=== PATIENT | male | born 1970 | race African-American/Black ===

== ENCOUNTER 2016-08-26 10:30 | Inpatient (IN) | payer OTHER, MEDICARE ==
[2016-08-26] VITALS (11 sets, daily range): BP systolic 139–188; BP diastolic 76–102; PULSE 92–112; RESP 18–22; TEMP 97.8–99.8; O2SAT 97–100
[~2016-08-26] VITALS: Ht 185.4 cm; Wt 86.2 kg
[~2016-08-26 10:30] MED LIST: AMLO5TAB96 PO; ATOR20TA42 PO; BACT2OIN TOP; CINA30 PO; CLON.1 PO; DIALTAB2 PO; ELIP667T PO; FAMO40 PO; HUMSS SQ; LABE200 PO; LABE200T2 PO; NITR.4 SL; PROT40TA PO; SEVEL800 PO; [UNRECOGNIZED DRUG - CODE] SQ
[2016-08-26] MEDS ORDERED: MORPHINE SULFATE 4 MG/ML INJ IV PUSH ONE ×2 (11:00→16:15)
[2016-08-26] MEDS ORDERED: ONDANSETRON HCL 4 MG/2 ML VIAL IV ONE (11:00)
[2016-08-26] MEDS ORDERED: SODIUM CHLOR 0.9% 1000 ML INJ 1,000 ML IV ONE (11:00)
[2016-08-26] MEDS ORDERED: MONT10TA2 PO (11:11)
[2016-08-26] MEDS ORDERED: ZANT300T PO (11:11)
[2016-08-26] MEDS ORDERED: LIPI20TA PO (11:11)
[2016-08-26] MEDS ORDERED: GLEE100T PO (11:11)
[2016-08-26] MEDS ORDERED: MYCO500 PO (11:11)
[2016-08-26] MEDS ORDERED: TACR1 PO (11:11)
[2016-08-26] MEDS ORDERED: CARA1TAB6 PO (11:11)
[2016-08-26] MEDS ORDERED: CARV6.25 PO (11:11)
[2016-08-26 11:21] LABS: AUTOMATED NEUTROPHIL # 3.6 TH/MM3 (1.8-7.7); BASOPHIL % 0.7 % (0.0-2.0); EOSINOPHIL % 0.1 % (0.0-4.0); HEMATOCRIT 40.4 % (39.0-51.0); HEMO FLAGS AUTO DIFF; LYMPH % 9.6 % (9.0-44.0); LYMPHOCYTE # 0.5 TH/MM3 (1.0-4.8); MEAN CELL VOLUME 83.9 FL (80.0-100.0); MEAN CORPUSCULAR HGB CONC 32.2 % (32.0-36.0); MONO % 18.8 % (0.0-8.0); NEUT % 70.8 % (16.0-70.0); PLATELET COUNT 212 TH/MM3 (150-450); RED BLOOD COUNT 4.82 MIL/MM3 (4.50-5.90); RED CELL DISTRIBUTION WIDTH 13.5 % (11.6-17.2); WHITE BLOOD COUNT 5.1 TH/MM3 (4.0-11.0)
[2016-08-26 11:27] LABS: APTT (PATIENT) 31.5 SEC (24.3-30.1); PROTHROMBIN TIME - PATIENT 10.7 SEC (9.8-11.6)
[2016-08-26 11:32] LABS: ALT (GPT) 18 U/L (12-78); ANION GAP 11 MEQ/L (5-15); AST (GOT) 13 U/L (15-37); BICARBONATE 23.6 MEQ/L (21.0-32.0); BLOOD UREA NITROGEN 35 MG/DL (7-18); CHLORIDE 98 MEQ/L (98-107); GLOMERULAR FILTRATION RATE 35 ML/MIN (>89); MAGNESIUM 2.2 MG/DL (1.5-2.5); POTASSIUM 4.8 MEQ/L (3.5-5.1); SODIUM (NA) 133 MEQ/L (136-145)
[2016-08-26 11:35] LABS: ALKALINE PHOSPHATASE 68 U/L (45-117); CREATINE KINASE 150 U/L (39-308); INDIRECT BILIRUBIN 0.4 MG/DL (0.0-0.8); TOTAL BILIRUBIN ADULT 0.5 MG/DL (0.2-1.0)
[2016-08-26] MEDS ORDERED: PROT40TA PO (11:36)
[2016-08-26] MEDS ORDERED: AMOX500C PO (11:36)
[2016-08-26] MEDS ORDERED: SERT-132 PO (11:36)
[2016-08-26] MEDS ORDERED: NOVOLOGP2 IMPLANPUMP (11:36)
[2016-08-26] MEDS ORDERED: AZIT250T3 PO (11:36)
[2016-08-26 11:48] LABS: CKMB LESS THAN 0.5 NG/ML (0.5-3.6)
--- NOTE | 2016-08-26 12:08 | RADRPT ---
EXAM DATE/TIME: 08/26/2016 11:42 [facility] COMPARISON: CHEST SINGLE AP, February 11, 2014, 19:45. CHEST PA & LAT, September 07, 2012, 14:54. INDICATIONS : Chest Pain. MEDICAL HISTORY : None. SURGICAL HISTORY : None. ENCOUNTER: Initial ACUITY: 1 week PAIN SCORE: 10/10 LOCATION: Bilateral chest FINDINGS: AP and lateral views of the chest demonstrate normal-sized cardiac silhouette. There is a linear wedg e shaped opacity in the anterior aspect of the right middle lobe. This is new from the prior examinat ions. No effusion, consolidation, or pneumothorax is visualized. Bones demonstrate no acute finding. CONCLUSION: Wedge shaped parenchymal opacity in the superior aspect of the right middle lobe. The wedge-shaped ap pearance favors subsegmental atelectasis or parenchymal scar. Consolidation is felt less likely. Hernando Leblanc MD on August 26, 2016 at 12:05 Board Certified Radiologist. This report was verified electronically.
[2016-08-26 12:12] LABS: BANDS 7 % (0-6); NEUTROPHIL # MANUAL DIFF 3.6 TH/MM3 (1.8-7.7); PLATELET ESTIMATE SMEAR NORMAL (NORMAL); PLATELET MORPHOLOGY NORMAL (NORMAL); POLYS (SEG NEUTROPHILS) 63 % (16-70); SCAN/DIFF FINAL DIFF MANUAL; WBC DIFF SAMPLE 100
[2016-08-26 12:20] LABS: BLOOD GAS VENOUS BASE EXCESS -1.8 mmol/L (-2-2); BLOOD GAS VENOUS HCO3 22 mmol/L (22-26); BLOOD GAS VENOUS O2 CONTENT 10.3 Vol % (9.0-17.0); BLOOD GAS VENOUS O2 HGB SAT 54 % (70-76); BLOOD GAS VENOUS PCO2 38 mmHg (44-48); BLOOD GAS VENOUS PO2 29 mmHg (35-40); BLOOD GAS VENOUS pH 7.39 (7.360-7.400); CRITICAL VALUE YES; DRAW SITE CL; OXYGEN DEVICE RA; STAT YES; TEMP CORR TO 98.6
[2016-08-26] MEDS ORDERED: PANTOPRAZOLE INJ 80 MG in SODIUM CHLORIDE 0.9% INJ 35 ML IV ONE (13:30)
[2016-08-26] MEDS ORDERED: ONDANSETRON HCL 4 MG/2 ML VIAL IV PUSH ONE (13:30)
[2016-08-26] MEDS ORDERED: ASPI1TAB69 PO (13:46)
[2016-08-26] MEDS ORDERED: ZOLO50TA PO (13:46)
[2016-08-26] MEDS ORDERED: ZITH250T PO (13:46)
--- NOTE | 2016-08-26 14:15 | RADRPT ---
EXAM DATE/TIME: 08/26/2016 13:32 [facility] COMPARISON: CHEST PA & LAT, August 26, 2016, 11:42. INDICATIONS : Left side chest pain, cough, fever. RADIATION DOSE: 3.58 CTDIvol (mGy) MEDICAL HISTORY : Cardiovascular disease. Diabetes mellitus type 2. Renal failure, chronic. Stroke, leukemia. SURGICAL HISTORY : Penile implant. ENCOUNTER: Initial ACUITY: 3 days PAIN SCALE: 7/10 LOCATION: Left upper chest TECHNIQUE: Volumetric scanning of the chest was performed. Using automated exposure control and adjustment of t he mA and/or kV according to patient size, radiation dose was kept as low as reasonably achievable to obtain optimal diagnostic quality images. FINDINGS: LUNGS: The chest x-ray finding represents a groundglass attenuation as well as a linear opacity in the infer ior aspect of the right upper lobe adjacent to the minor fissure. No effusion or pneumothorax is pres ent.PLEURAE: There is no pleural thickening or pleural effusion. MEDIASTINUM: The heart and great vessels demonstrate no acute abnormality. Mild coronary artery calcification is present. There is trace pericardial fluid. There is no mediastinal or hilar lymphadenopathy is identi fied on this noncontrast exam. AXILLAE: Within normal limits. No lymphadenopathy. MUSCULOSKELETAL: Within normal limits for patient age. MISCELLANEOUS: The visualized upper abdominal organs demonstrate no acute abnormality. There is a small hiatal herni a. CONCLUSION: 1. The chest x-ray finding represents mild groundglass attenuation as well as a linear opacity with a n appearance favoring an airspace process with associated atelectasis. It is located in the inferior aspect of the right upper lobe. Given the history of cough and fever this very likely represents an i nfectious process. Suggest followup imaging to confirm resolution following appropriate therapy. 2. Nonacute findings include mild coronary artery calcification and small hiatal hernia. Hernando Leblanc MD on August 26, 2016 at 14:10 Board Certified Radiologist. This report was verified electronically.
[2016-08-26] MEDS: PANTOPRAZOLE INJ 80 MG in SODIUM CHLORIDE 0.9% INJ 100 ML IV SCH ×2 (14:18→22:52)
[2016-08-26] MEDS ORDERED: AZITHROMYCIN INJ 500 MG in SODIUM CHLOR 0.9% 250 ML INJ 250 ML IV ONE (14:30)
[2016-08-26] MEDS ORDERED: cefTRIAXone INJ 1,000 MG in SODIUM CHLORIDE 0.9% INJ 100 ML IV ONE (14:30)
--- NOTE | 2016-08-26 14:39 | PD ---
HPI Chief Complaint: Fever Time Seen by Provider: 10:50 Travel History International Travel<30 days: No Contact w/Intl Traveler<30days: No Traveled to known affect area: No History of Present Illness HPI Patient is a 45 year old male with history of Leukemia on chemo, as well as renal transplant, who comes in complaining of left sided chest pain, cough, fevers. He has also had nausea and vomiting. He was taking Amoxicillin, prescribed by his doctor, but when he started vomiting his doctor told him to stop. His significant other is concerned about him so she told him to come in. He says he generally does not feel well. PFSH Past Medical History Hx Anticoagulant Therapy: Yes (81mg aspirin.) Arthritis: No Autoimmune Disease: No Blood Disorders: No Heart Rhythm Problems: No Cancer: No Cardiovascular Problems: Yes High Cholesterol: No Chemotherapy: Yes Chest Pain: No Congestive Heart Failure: Yes Cerebrovascular Accident: Yes (X3, SLIGHTLY WEAK ON LEFT SIDE) Diabetes: Yes (IDDM) Patient Takes Glucophage: No Dialysis: Yes (MON-SUN (OFF SAT AND SUN)) Diminished Hearing: No Endocrine: Yes Glaucoma: No Genitourinary: No Hepatitis: No Hiatal Hernia: No Hypertension: Yes Immune Disorder: No Implanted Vascular Access Dvce: Yes ( LEFT AVF) Kidney Stones: No Musculoskeletal: Yes Neurologic: No Psychiatric: No Reproductive: No Respiratory: No Migraines: Yes Myocardial Infarction: No Renal Failure: Yes (LEFT FOREARM AV SHUNT) Seizures: No Thyroid Disease: No Tetanus Vaccination: < 5 Years PNEUMOCCOCAL Vaccine (Year): 2 Past Surgical History Abdominal Surgery: No AICD: No Arteriovenous Shunt: No Cardiac Surgery: No Ear Surgery: No Endocrine Surgery: No Eye Surgery: Yes (CATARACT SURGERY WITH IMPLANTS) Genitourinary Surgery: Yes (PENILE IMPLANT/ left kidney transplant) Gynecologic Surgery: No Insulin Pump: No Joint Replacement: No Oral Surgery: No Pacemaker: No Thoracic Surgery: No Other Surgery: Yes (JACK GREAT TOES REMOVED/ left avf fistula) Social History Alcohol Use: No Tobacco Use: No Substance Use: No Allergies-Medications (Allergen,Severity, Reaction): Coded Allergies: Bethanechol (Verified Allergy, Mild, DIAPHORESIS, 08/26/16) Contrast Media (Verified Allergy, Mild, ITCHING AND COUGHING, 08/26/16) Reported Meds & Prescriptions Reported Meds & Active Scripts Active Reported Zithromax (Azithromycin) 250 Mg Tab 250 Mg PO DAILY Aspirin 81 Mg Tabdr 81 Mg PO DAILY Zoloft (Sertraline HCl) 50 Mg Tab 50 Mg PO DAILY Amoxicillin 500 Mg Cap 500 Mg PO TID 10 Days Azithromycin 250 Mg Tab 250 Mg PO DAILY Protonix (Pantoprazole Sodium) 40 Mg Tab 40 Mg PO DAILY Sertraline (Sertraline HCl) 50 Mg Tab 50 Mg PO DAILY Novolog Inj (Insulin Aspart) 1,000 Unit/10 Ml Vial 0 SQ DIRECTED Sliding Scale as directed. Lipitor (Atorvastatin Calcium) 20 Mg Tab 20 Mg PO HS Singulair (Montelukast Sodium) 10 Mg Tab 10 Mg PO HS Gleevec (Imatinib Mesylate) 100 Mg Tab 100 Mg PO HS Coreg (Carvedilol) 6.25 Mg Tab 6.25 Mg PO BID Cellcept (Mycophenolate Mofetil) 500 Mg Tab 1,000 Mg PO BID Prograf (Tacrolimus) 1 Mg Cap 3 Mg PO BID Zantac (Ranitidine HCl) 300 Mg Tab 300 Mg PO BID Carafate (Sucralfate) 1 Gm Tab 1 Gm PO DAILY On empty stomach Review of Systems Except as stated in HPI: all other systems reviewed are Neg General / Constitutional: Positive: Fever HENT: No: Headaches, Lightheadedness Cardiovascular: Positive: Chest Pain or Discomfort Respiratory: Positive: Cough Gastrointestinal: Positive: Nausea, Vomiting, No: Abdominal Pain Genitourinary: No: Dysuria Musculoskeletal: Positive: Myalgias Skin: No Rash, No Change in Pigmentation Neurologic: Positive: Weakness Physical Exam Narrative GENERAL: Awake and alert, in no acute distress. SKIN: Warm and dry. HEAD: Atraumatic. Normocephalic. EYES: Pupils equal and round. No scleral icterus. ENT: Mucous membranes pink and moist. NECK: Trachea midline. No JVD. CARDIOVASCULAR: Regular rate and rhythm. No murmur appreciated. RESPIRATORY: No accessory muscle use. Clear to auscultation. Breath sounds equal bilaterally. GASTROINTESTINAL: Abdomen soft, non-tender, nondistended. MUSCULOSKELETAL: No obvious deformities. No clubbing. No cyanosis. No edema. NEUROLOGICAL: Awake and alert. No obvious cranial nerve deficits. Motor grossly within normal limits. Normal speech. PSYCHIATRIC: Appropriate mood and affect; insight and judgment normal. Data Data Last Documented VS Vital Signs Date Time Temp Pulse Resp B/P Pulse Ox O2 Delivery O2 Flow Rate FiO2 08/26/16 13:30 92 20 186/102 100 Room Air 08/26/16 10:32 97.8 Orders Electrocardiogram (08/26/16 ) Complete Blood Count With Diff (08/26/16 11:00) Prothrombin Time / Inr (Pt) (08/26/16 11:00) Act Partial Throm Time (Ptt) (08/26/16 11:00) Lactic Acid Sepsis Protocol (08/26/16 11:00) Magnesium (Mg) (08/26/16 11:00) Phosphorus (Po4) (08/26/16 11:00) Lipase (08/26/16 11:00) Ckmb (Isoenzyme) Profile (08/26/16 11:00) Troponin I (08/26/16 11:00) Urinalysis - C+S If Indicated (08/26/16 11:00) Ua Includes Microscopic (08/26/16 11:00) Blood Culture (08/26/16 11:00) Chest, Pa & Lat (08/26/16 11:00) Blood Glucose (08/26/16 11:00) Ecg Monitoring (08/26/16 11:00) Iv Access Insert/Monitor (08/26/16 11:00) Oximetry (08/26/16 11:00) Oxygen Administration (08/26/16 11:00) Ondansetron Inj (Zofran Inj) (08/26/16 11:00) Sodium Chlor 0.9% 1000 Ml Inj (Ns 1000 M (08/26/16 11:00) Blood Gas Venous (Vbg) (08/26/16 11:00) Basic Metabolic Panel (Bmp) (08/26/16 11:00) Hepatic Functional Panel (08/26/16 11:00) Morphine Inj (Morphine Inj) (08/26/16 11:00) CKMB (08/26/16 11:05) CKMB% (08/26/16 11:05) Ct Thorax/ Chest Wo Iv Contras (08/26/16 ) Pantoprazole Inj (Protonix Inj) (08/26/16 13:30) Pantoprazole Inj (Protonix Inj) (08/26/16 13:30) Ondansetron Inj (Zofran Inj) (08/26/16 13:30) Ceftriaxone Inj (Rocephin Inj) (08/26/16 14:30) Azithromycin Inj (Zithromax Inj) (08/26/16 14:30) Labs Laboratory Tests Test 08/26/16 08/26/16 11:05 11:15 White Blood Count 5.1 TH/MM3 Red Blood Count 4.82 MIL/MM3 Hemoglobin 13.0 GM/DL Hematocrit 40.4 % Mean Corpuscular Volume 83.9 FL Mean Corpuscular Hemoglobin 27.0 PG Mean Corpuscular Hemoglobin 32.2 % Concent Red Cell Distribution Width 13.5 % Platelet Count 212 TH/MM3 Mean Platelet Volume 8.6 FL Neutrophils (%) (Auto) 70.8 % Lymphocytes (%) (Auto) 9.6 % Monocytes (%) (Auto) 18.8 % Eosinophils (%) (Auto) 0.1 % Basophils (%) (Auto) 0.7 % Neutrophils # (Auto) 3.6 TH/MM3 Lymphocytes # (Auto) 0.5 TH/MM3 Monocytes # (Auto) 1.0 TH/MM3 Eosinophils # (Auto) 0.0 TH/MM3 Basophils # (Auto) 0.0 TH/MM3 CBC Comment AUTO DIFF Differential Total Cells 100 Counted Neutrophils % (Manual) 63 % Band Neutrophils % 7 % Lymphocytes % 14 % Monocytes % 16 % Neutrophils # (Manual) 3.6 TH/MM3 Differential Comment FINAL DIFF MANUAL Platelet Estimate NORMAL Platelet Morphology Comment NORMAL Red Cell Morphology Comment NORMAL Prothrombin Time 10.7 SEC Prothromb Time International 1.0 RATIO Ratio Activated Partial 31.5 SEC Thromboplast Time Sodium Level 133 MEQ/L Potassium Level 4.8 MEQ/L Chloride Level 98 MEQ/L Carbon Dioxide Level 23.6 MEQ/L Anion Gap 11 MEQ/L Blood Urea Nitrogen 35 MG/DL Creatinine 2.42 MG/DL Estimat Glomerular Filtration 35 ML/MIN Rate Random Glucose 343 MG/DL Lactic Acid Level 1.6 mmol/L Calcium Level 9.3 MG/DL Phosphorus Level 2.6 MG/DL Magnesium Level 2.2 MG/DL Total Bilirubin 0.5 MG/DL Direct Bilirubin 0.1 MG/DL Indirect Bilirubin 0.4 MG/DL Aspartate Amino Transf 13 U/L (AST/SGOT) Alanine Aminotransferase 18 U/L (ALT/SGPT) Alkaline Phosphatase 68 U/L Total Creatine Kinase 150 U/L Creatine Kinase MB LESS THAN 0.5 NG/ML Troponin I LESS THAN 0.02 NG/ML Total Protein 7.7 GM/DL Albumin 3.9 GM/DL Lipase 74 U/L Blood Gas Puncture Site CL Blood Gas Patient Temperature 98.6 Venous Blood pH 7.39 Venous Blood Partial Pressure 38 mmHg CO2 Venous Blood Partial Pressure 29 mmHg O2 Venous Blood HCO3 22 mmol/L Venous Blood Oxygen Saturation 54 % Venous Blood Oxygen Content 10.3 Vol % Venous Blood Base Excess -1.8 mmol/L Oxygen Delivery Device RA MDM Medical Decision Making Medical Screen Exam Complete: Yes Emergency Medical Condition: Yes Medical Record Reviewed: Yes Interpretation(s) ECG shows sinus rhythm at 97, LVH, no ST elevation or depression. Differential Diagnosis Sepsis versus pneumonia versus UTI versus ACS Narrative Course Patient is a 45-year-old male, immunocompromise secondary to renal transplant in leukemia on chemotherapy, who comes in complaining of fever, chest pain, cough, nausea or vomiting. Exam shows no acute abnormalities. IV established, patient connected to front desk monitor. Labs sent. Labs concerning for a creatinine of 2.42. His recent labs showed a creatinine of 1.8 previously. CXR showed wedge shaped opacity. CT chest performed shows ground glass opacity in the RUL, likely infectious. Patient treated with Rocephin and Azithromycin. While he was in the ED, patient had an episode of coffee ground emesis. He has history of gastric ulcers. Given Protonix bolus as well as started on Protonix drip. He was given Zofran as well as Morphine for pain. Given 1 L IVF. I spoke with Dr. Aguilera from nephrology regarding the patient's increase in Cr, he will see the patient has an inpatient. He suggests hydration at this time. Patient will be admitted for further management. Diagnosis Primary Impression: Pneumonia Qualified Code: J18.1 - Pneumonia of right upper lobe due to infectious organism Additional Impressions: Chest pain Qualified Code: R07.9 - Chest pain, unspecified type Immunocompromised state GI bleed Qualified Code: K25.4 - Gastrointestinal hemorrhage associated with gastric ulcer Admitting Information Admitting Physician Requests: Admit Uyen Hatfield MD Aug 26, 2016 14:39
[2016-08-26 16:29] LABS: BLOOD, URINE TRACE (NEG); GLUCOSE,URINE 1000 mg/dL (NEG); KETONE, URINE 40 mg/dL (NEG); NITRITE,URINE NEG (NEG); SQUAMOUS EPITHELIAL CELL URINE <1 /hpf (0-5); URINE COLOR YELLOW (YELLW/STRAW)
[2016-08-26 16:44] LABS: COMMENT (UR) CATH-CULT NOT IND; CULTURE IF INDICATED CATH CULTURE NOT IND
[2016-08-26] MEDS ORDERED: ACETAMINOPHEN 325 MG TAB PO PRN (16:45)
[2016-08-26] MEDS ORDERED: ACETAMINOPHEN/HYDROcodone 325 MG/7.5 MG TAB PO PRN (16:45)
[2016-08-26] MEDS ORDERED: MORPHINE SULFATE 4 MG/ML INJ IV PRN (16:45)
[2016-08-26] MEDS ORDERED: ONDANSETRON HCL 4 MG/2 ML VIAL IVP PRN (16:45)
[2016-08-26] MEDS ORDERED: ACETAMINOPHEN/HYDROcodone 325 MG/5 MG TAB PO PRN (16:45)
--- NOTE | 2016-08-26 16:48 | HHI.HP ---
HPI Service [facility] Physician Radha Barba MD Admission Diagnosis pneumonia, MARIO, GI bleed Diagnoses: Chief Complaint: Pneumonia, vomiting Travel History International Travel<30 Days: No Contact w/Intl Traveler <30 Da: No Traveled to Known Affected Are: No History of Present Illness 45-year-old male with an extensive past medical history including DM, renal transplant on immunosuppressives, CML, CVA, PUD who presented with cough and vomiting. The patient states that 5 days ago he began having sinus congestion, drainage, and cough. His cough is productive with brown sputum. He denies any shortness of breath. He has been having fevers, yesterday temperature 101.5 at home. He denies any fevers today. He states that for the past few days she's been having hiccups and nausea, decreased intake. He states today he had one episode of vomiting 1, reports it was grossly red. He has a history of gastric ulcers, follow with Dr. Perez, last EGD last summer, reportedly ulcers had healed, weaning off of sucralfate. He's also been having some intermittent left-sided chest pain. No history of CAD. He does take an aspirin daily. Review of Systems Other 10 point review of systems performed and was negative except as stated in the history of present illness Past Family Social History Past Medical History Diabetes mellitus with gastroparesis, neuropathy, retinopathy Chronic kidney disease with history of renal transplant TIA/CVA, residual left upper extremity weakness History of DVT in the past History of CHF in the past History of cardiac arrhythmia status post cardioversion Peptic ulcer disease/GERD Hyperlipidemia Hypertension CML Depression Past Surgical History Renal transplant Multiple toe amputations Cardioversion EGD/colonoscopy Left upper extremity AV fistula placement next in penile implant Bone marrow biopsy Left knee surgery Reported Medications Aspirin 81 Mg Tabdr 81 Mg PO DAILY Amoxicillin 500 Mg Cap 500 Mg PO TID 10 Days Azithromycin 250 Mg Tab 250 Mg PO DAILY Protonix (Pantoprazole Sodium) 40 Mg Tab 40 Mg PO DAILY Sertraline (Sertraline HCl) 50 Mg Tab 50 Mg PO DAILY Novolog Inj (Insulin Aspart) 1,000 Unit/10 Ml Vial 0 SQ DIRECTED Sliding Scale as directed. Lipitor (Atorvastatin Calcium) 20 Mg Tab 20 Mg PO HS Singulair (Montelukast Sodium) 10 Mg Tab 10 Mg PO HS Gleevec (Imatinib Mesylate) 100 Mg Tab 100 Mg PO HS Coreg (Carvedilol) 6.25 Mg Tab 6.25 Mg PO BID Cellcept (Mycophenolate Mofetil) 500 Mg Tab 1,000 Mg PO BID Prograf (Tacrolimus) 1 Mg Cap 3 Mg PO BID Zantac (Ranitidine HCl) 300 Mg Tab 300 Mg PO BID Carafate (Sucralfate) 1 Gm Tab 1 Gm PO DAILY On empty stomach Allergies: Coded Allergies: Bethanechol (Verified Allergy, Mild, DIAPHORESIS, 08/26/16) Contrast Media (Verified Allergy, Mild, ITCHING AND COUGHING, 08/26/16) Active Ordered Medications Current Medications Medications (Trade) Dose Ordered Sig/Roque Route Start Time Stop Time Status Last Admin Pantoprazole Sodium 80 mg/ Sodium Chloride 100 ml @ 10 mls/hr CONTINUOUS IV 08/26/16 13:30 08/26/16 14:18 (NS 1000 ml Inj) 1,000 ml @ 84 mls/hr [id number] IV 08/26/16 15:30 08/26/16 16:58 (Lipitor) 20 mg HS PO 08/26/16 21:00 UNV (Coreg) 6.25 mg BID PO 08/26/16 21:00 (Singulair) 10 mg HS PO 08/26/16 21:00 UNV (Cellcept) 1,000 mg BID PO 08/26/16 21:00 UNV (Zantac) 300 mg BID PO 08/26/16 21:00 UNV (Zoloft) 50 mg DAILY PO 08/27/16 09:00 UNV (Prograf) 3 mg BID PO 08/26/16 21:00 UNV Non-Formulary Medication 100 mg HS PO 08/26/16 21:00 UNV (Zofran Inj) 4 mg Q6H PRN IVP 08/26/16 16:45 (Tylenol) 650 mg Q6H PRN PO 08/26/16 16:45 UNV ([place] 5-325 Mg) 1 tab Q4H PRN PO 08/26/16 16:45 UNV ([place] 7.5-325 Mg) 1 tab Q4H PRN PO 08/26/16 16:45 UNV (Morphine Inj) 4 mg Q3H PRN IV 08/26/16 16:45 UNV (Carafate Liq) 1 gm ACHS PO 08/26/16 21:00 (Lioresal) 10 mg BID PRN PO 08/26/16 17:00 (Lioresal) 10 mg ONCE ONCE PO 08/26/16 17:00 08/26/16 17:01 UNV (NS Flush) 2 ml UNSCH PRN IVF 08/26/16 17:00 IV Flush 2 ml 2 ml BID IVF 08/26/16 21:00 Metronidazole 100 ml @ 100 mls/hr Q8H IV 08/26/16 17:00 UNV (Zosyn 4.5 Gm Premix) 100 ml @ 200 mls/hr Q6H IV 08/26/16 17:00 UNV Family History Father had CVA, hypertension, diabetes excellent Mother had hypertension Social History History tobacco use, quit 3 years ago Denies any alcohol use Occasional marijuana use, lashes 2 weeks ago, denies any frequent or daily use Physical Exam Vital Signs Vital Signs Date Time Temp Pulse Resp B/P Pulse Ox O2 Delivery O2 Flow Rate FiO2 08/26/16 14:44 100 19 182/92 100 Room Air 08/26/16 13:30 92 20 186/102 100 Room Air 08/26/16 11:30 96 20 167/99 100 Room Air 08/26/16 11:05 100 Room Air 08/26/16 10:47 100 100 Room Air 08/26/16 10:32 97.8 112 20 139/78 97 Room Air Physical Exam GENERAL: Well-developed well-nourished. In no acute distress. SKIN: Warm and dry. No lesions noted. HEENT: Normocephalic. Pupils equal and round. Mucous membranes pink and moist. CARDIOVASCULAR: Regular rate and rhythm. No murmur appreciated. No chest wall tenderness. RESPIRATORY: No accessory muscle use. Clear to auscultation. Breath sounds equal bilaterally. GASTROINTESTINAL: Abdomen soft, non-tender, nondistended. Bowel sounds x4. MUSCULOSKELETAL: No obvious deformities. No clubbing or cyanosis. No edema. NEUROLOGICAL: Awake and alert. No focal neurological deficits. Moves upper and lower extremities spontaneously. Normal speech. PSYCHIATRIC: Appropriate mood and affect; insight and judgment normal. Laboratory Laboratory Tests Test 08/26/16 08/26/16 08/26/16 11:05 11:15 15:50 White Blood Count 5.1 Red Blood Count 4.82 Hemoglobin 13.0 Hematocrit 40.4 Mean Corpuscular Volume 83.9 Mean Corpuscular Hemoglobin 27.0 Mean Corpuscular Hemoglobin 32.2 Concent Red Cell Distribution Width 13.5 Platelet Count 212 Mean Platelet Volume 8.6 Neutrophils (%) (Auto) 70.8 Lymphocytes (%) (Auto) 9.6 Monocytes (%) (Auto) 18.8 Eosinophils (%) (Auto) 0.1 Basophils (%) (Auto) 0.7 Neutrophils # (Auto) 3.6 Lymphocytes # (Auto) 0.5 Monocytes # (Auto) 1.0 Eosinophils # (Auto) 0.0 Basophils # (Auto) 0.0 CBC Comment AUTO DIFF Differential Total Cells 100 Counted Neutrophils % (Manual) 63 Band Neutrophils % 7 Lymphocytes % 14 Monocytes % 16 Neutrophils # (Manual) 3.6 Differential Comment FINAL DIFF MANUAL Platelet Estimate NORMAL Platelet Morphology Comment NORMAL Red Cell Morphology Comment NORMAL Prothrombin Time 10.7 Prothromb Time International 1.0 Ratio Activated Partial 31.5 Thromboplast Time Sodium Level 133 Potassium Level 4.8 Chloride Level 98 Carbon Dioxide Level 23.6 Anion Gap 11 Blood Urea Nitrogen 35 Creatinine 2.42 Estimat Glomerular Filtration 35 Rate Random Glucose 343 Lactic Acid Level 1.6 Calcium Level 9.3 Phosphorus Level 2.6 Magnesium Level 2.2 Total Bilirubin 0.5 Direct Bilirubin 0.1 Indirect Bilirubin 0.4 Aspartate Amino Transf 13 (AST/SGOT) Alanine Aminotransferase 18 (ALT/SGPT) Alkaline Phosphatase 68 Total Creatine Kinase 150 Creatine Kinase MB LESS THAN 0.5 Troponin I LESS THAN 0.02 Total Protein 7.7 Albumin 3.9 Lipase 74 Blood Gas Puncture Site CL Blood Gas Patient Temperature 98.6 Venous Blood pH 7.39 Venous Blood Partial Pressure 38 CO2 Venous Blood Partial Pressure 29 O2 Venous Blood HCO3 22 Venous Blood Oxygen Saturation 54 Venous Blood Oxygen Content 10.3 Venous Blood Base Excess -1.8 Oxygen Delivery Device RA Urine Color YELLOW Urine Turbidity CLEAR Urine pH 5.0 Urine Specific [place] 1.020 Urine Protein TRACE Urine Glucose (UA) 1000 Urine Ketones 40 Urine Occult Blood TRACE Urine Nitrite NEG Urine Bilirubin NEG Urine Urobilinogen LESS THAN 2.0 Urine Leukocyte Esterase NEG Urine RBC LESS THAN 1 Urine WBC LESS THAN 1 Urine Squamous Epithelial <1 Cells Microscopic Urinalysis Comment CATH-CULT NOT IND Date/Time Procedure Status Source Growth 08/26/16 11:09 Aerobic Blood Culture Received Blood Peripheral Pending 08/26/16 11:09 Anaerobic Blood Culture Received Blood Peripheral Pending Result Diagram: 08/26/16 1105 08/26/16 1105 Imaging Last Impressions Chest X-Ray 08/26/16 1100 Signed Impressions: Service Date/Time: Friday, August 26, 2016 11:42 - CONCLUSION: Wedge shaped parenchymal opacity in the superior aspect of the right middle lobe. The wedge-shaped appearance favors subsegmental atelectasis or parenchymal scar. Consolidation is felt less likely. Hernando Leblanc MD Chest CT 08/26/16 0000 Signed Impressions: Service Date/Time: Friday, August 26, 2016 13:32 - CONCLUSION: 1. The chest x-ray finding represents mild groundglass attenuation as well as a linear opacity with an appearance favoring an airspace process with associated atelectasis. It is located in the inferior aspect of the right upper lobe. Given the history of cough and fever this very likely represents an infectious process. Suggest followup imaging to confirm resolution following appropriate therapy. 2. Nonacute findings include mild coronary artery calcification and small hiatal hernia. Hernando Leblanc MD Assessment and Plan Problem List: (1) Healthcare associated bacterial pneumonia ICD Code: J15.9 Status: Acute (2) GI bleed ICD Code: K92.2 Status: Acute (3) Pneumonia ICD Code: J18.9 Status: Acute (4) Chest pain ICD Code: R07.9 Status: Acute Assessment and Plan 45-year-old male with an extensive past medical history including DM, renal transplant on immunosuppressives, CML, CVA, PUD who presented with cough and vomiting Pneumonia: Failed outpatient therapy with amoxicillin. Chest x-ray and chest CT results reviewed, inferior right upper lobe infiltrate. Currently afebrile with no leukocytosis, however 7 bands. Start IV Zosyn and Flagyl to cover for aspiration. Check urinary antigens. Continue nebs as needed. Consider ID consult on immunosuppressive therapy. Hematemesis: Hemoglobin currently stable, monitor. Likely secondary to history of PUD. Continue Zantac. Increase Carafate. IV Protonix. Consult patient's septic tank service technician. Antiemetics as needed. Baclofen as needed for hiccups. Clear liquids, diet per GI. Atypical chest pain: Possibly secondary to pneumonia and coughing vs hematemesis vs HTN as listed, rule out ACS per protocol. EKG reviewed with LVH , nonspecific ST changes. Initial troponin within normal limits, trend. Hold aspirin with bleeding as above. Continue statin. Oral and intravenous narcotics as needed for pain. Acute kidney injury on chronic kidney disease status post renal transplant: Likely secondary to decreased oral intake and vomiting. Creatinine 2.42, reportedly baseline since transplant is around 1.8, no recent labs for comparison. IVF. Consult nephrology. Continue Prograf and CellCept, check levels. Diabetes mellitus: Has insulin pump. Hypoglycemia protocol in place. Sliding scale coverage. Accelerated hypertension: Continue home carvedilol. Clonidine and hydralazine as needed. Other chronic medical conditions include CML, depression: Stable at this time and will continue home medications as indicated DVT prophylaxis: SCDs. Avoid chemical prophylaxis with bleeding. The documentation accurately reflects the work performed [id number] by me on at 19:55. Discussed Condition With Patient with SO at bedside, Dr. Dean Problem Qualifiers (1) GI bleed: Qualified Code: K25.4 - Gastrointestinal hemorrhage associated with gastric ulcer (2) Pneumonia: Qualified Code: J18.1 - Pneumonia of right upper lobe due to infectious organism (3) Chest pain: Qualified Code: R07.9 - Chest pain, unspecified type Bashir Rayo Aug 26, 2016 16:48 Fito Dean MD Aug 26, 2016 19:56
[2016-08-26] MEDS: SODIUM CHLOR 0.9% 1000 ML INJ 1,000 ML IV SCH (16:58)
[2016-08-26] MEDS ORDERED: BACLOFEN 10 MG TAB PO PRN (17:00)
[2016-08-26] MEDS ORDERED: SODIUM CHLORIDE 0.9% FLUSH 5 ML FLUSH IVF PRN (17:00)
[2016-08-26] MEDS ORDERED: BACLOFEN 10 MG TAB PO ONE (17:00)
[2016-08-26] MEDS ORDERED: GLUCAGON 1 MG/ML VIAL OTHER PRN (17:30)
[2016-08-26] MEDS ORDERED: RESP: ALBUTEROL 1.25 MG/3 ML NEB (PRN) NEB (17:30)
[2016-08-26] MEDS ORDERED: DEXTROSE 50% IN WATER 50 ML VIAL(D50) IV PUSH PRN (17:30)
[2016-08-26] MEDS ORDERED: cloNIDine HCL 0.1 MG TAB PO PRN (17:45)
[2016-08-26] MEDS ORDERED: hydrALAZINE HCL 20 MG/ML VIAL IV PUSH PRN (17:45)
[2016-08-26] MEDS: PIPERACIL-TAZO 4.5 GM PREMIX 100 ML IV SCH (17:59)
[2016-08-26] MEDS: PANTOPRAZOLE SODIUM 40 MG VIAL IV PUSH SCH (18:00)
[2016-08-26 18:29] LABS: CREATINE KINASE 117 U/L (39-308)
[2016-08-26] MEDS ORDERED: TEMAZEPAM 15 MG CAP PO PRN (20:00)
[2016-08-26] MEDS ORDERED: ONDANSETRON HCL 4 MG/2 ML VIAL IV PRN (20:00)
[2016-08-26] MEDS ORDERED: DOCUSATE SODIUM 50 MG/SENNA 8.6 MG TAB PO PRN (20:00)
[2016-08-26] MEDS: metroNIDAZOLE 500 MG INJ 100 ML IV SCH (20:43)
[2016-08-26] MEDS: SODIUM CHLORIDE 0.9% FLUSH 5 ML FLUSH IVF SCH (21:00)
--- NOTE | 2016-08-26 22:32 | MB ---
cc: ZANE NICOLE MD DATE OF CONSULTATION 08/26/16 REASON FOR CONSULTATION Acute renal failure management with history of renal transplant. HISTORY OF PRESENT ILLNESS This is a 45-year-old male with a history of ESRD and diabetes. The patient was previously on hemodialysis from [id number]. He follows up with Dr. Valenzuela for his renal issues. In October of 2014 the patient received a renal transplant from his . This was performed at the [facility]. Apparently, the patient's postoperative course was complicated with a diagnosis of eosinophilic leukemia. The patient is on daily Gleevec for that and otherwise leukemia has been fairly stable. The patient's renal function has been otherwise stable with no apparent reported episodes for rejection; however, the patient apparently had been considered for renal biopsy with Dr. Dr. Valenzuela. He apparently can not get this done at [facility] as his insurance has changed; however, his renal function had been relatively stable with the last known creatinine of 1.8 several months ago per the patient's . The patient over the last week or so started developing symptoms of coughing and sinusitis. He was given a prescription of amoxicillin by the primary care provider, however, the patient subsequently developed some vomiting and emesis and this was stopped. He had ongoing emesis over the last several days and came to the ER earlier today for evaluation. He was of note able to tolerate all his p.o. transplant medications until today when he had ongoing vomiting. He was brought here to the ER and was observed to have coffee-ground emesis here. The patient does have a previous history of gastric ulcers and has apparently had previous EGDs at [facility] in [place]. Here he was started on a Protonix drip and he has had some ongoing nausea at this point. He has been able to tolerate some p.o. medications otherwise today. Regarding his renal function the patient presented here with an elevated creatinine of 2.42. Apparently, his previous creatinine was near 1.9 several months ago. Labs not available for comparison in the [employer] system, however, the patient's formally worked in dialysis and is a good historian. The patient was started on IV fluids here which are running at this time and he is being admitted with primary care team. Nephrology was consulted for further evaluation of acute renal failure with history of renal transplant. REVIEW OF SYSTEMS At the time of evaluation the patient reports nausea, vomiting. No constipation. No diarrhea and no dysuria. No chest pains. No shortness of breath. The patient has had some generalized weakness and difficulty in tolerating p.o. intake today. No dizziness or loss of consciousness. Ongoing emesis of foods over the last day. Previous sinusitis which has apparently improved. PAST MEDICAL HISTORY Past medical history includes ESRD secondary to diabetes. Previously on hemodialysis from 0060-1097 and followed up with Dr. Valenzuela. Renal transplant from in October 2014 at [facility]. Diabetes type 1 with insulin pump. Cataracts, GERD, dyslipidemia, hypertension, osteoporosis, peripheral neuropathy, pneumonia in the past with pulmonary nodule in the past. History of previous CVA. History of thyroid disease. The patient has had multiple endoscopies at [facility] with apparent gastric ulcers in the past. Patient with chronic eosinophilic leukemia, seen recently able with Dr. Shay here at [place]. The patient is on Gleevec daily. A previous remote history of left lower extremity DVT in 2007 after prolonged hospitalization. The patient has been continued on aspirin for that. Surgical history includes three toes of amputation. Cataract surgery. Left knee surgery. Left radiocephalic AV fistula with previous stent. Penile implant. Bone marrow biopsy and aspiration 2015. Renal transplant in 2014. FAMILY HISTORY The patient's mother with hypertension. The patient's father at age 70 with type 1 diabetes and stroke. History of hypertension. SOCIAL HISTORY The patient is and retired from working with trees. The patient was a smoker but quit smoking 2 years ago, had smoked one pack per day for 20 years with a social alcohol use. The patient lives at home with his spouse who actually worked in dialysis and gave him a kidney transplant. ALLERGIES INCLUDES BETHANECHOL WELL CONTRAST MEDIA. MEDICATIONS At home included: 1. Aspirin. 2. CellCept 1000 milligrams b.i.d. 3. Coreg. 4. Vitamin D. 5. Gleevec 1 tablet daily. 6. Glycopyrrolate tablet b.i.d. 7. Lipitor. 8. Multivitamin. 9. NovoLog insulin with insulin pump. 10. Prograf 3 milligrams p.o. b.i.d. 11. Singulair. 12. Sucralfate. 13. Zantac. 14. Zithromax p.o. PHYSICAL EXAMINATION VITAL SIGNS: At time of evaluation temperature 98.9, pulse 100, respiratory rate 19, blood pressure 182/92, pulse ox 100% on room air. GENERAL: Awake, the patient with nausea and vomiting. HEENT/neck: Soft, supple. CARDIAC: Regular rate and rhythm. PULMONARY: Lungs clear to auscultation. Decreased breath sounds at bases. ABDOMEN: Soft, nontender, nondistended. EXTREMITIES: No edema. Left forearm fistula with positive thrill. LABORATORY FINDINGS Sodium 133, potassium 4.8, chloride 98, bicarb 23.6, BUN 35, creatinine 2.42 with glucose 343, calcium 9.3, phosphorus 2.6, magnesium 2.2, AST 13, ALT 18, alk phos 68, troponin less than 0.02, albumin 3.9, lipase 74, white count 5.1, hemoglobin 13, hematocrit 40.4 with platelet count 212. Urinanalysis with trace protein, 40 ketones, trace occult blood, less than one epithelial cells, less than one red blood cell, less than one white blood cell. ASSESSMENT/PLAN PROBLEM #1: Acute kidney injury with renal transplant. The patient presents here with a creatinine of 2.4. Apparently, his baseline had been near 1.8 as an outpatient within the last several months. The patient has had funding issues and has not been able to follow up with [facility] post-transplant, however, he has followed up locally with Dr. Valenzuela here. He is on CellCept 1000 milligrams b.i.d. as well as Prograf 3 milligrams b.i.d. He is not on prednisone. At this point the patient appears hemodynamically stable. He is afebrile at this point, however, has ongoing nausea and emesis. His creatinine is elevated at 2.9 and he has had decreased p.o. intake for several days. At this point, agree with IV fluids. Will increase fluids to 100 cc/hour of normal saline. Continue to monitor for any reversible improvement in renal function. I suspect much his acute kidney injury is secondary to volume depletion. In addition, will continue with the patient's Prograf at 3 milligrams b.i.d. dosing. Will continue CellCept for now at 1000 milligrams b.i.d., however, if the patient begins to spike any fevers or has any signs of worsening infection may consider to hold CellCept, however, at this point will continue with full immunosuppression at this point and continue to monitor. The patient is otherwise afebrile and will also check Prograf levels in the morning. PROBLEM #2: Pneumonia, the patient has apparent signs of pneumonia per CT scan. He has been started on Zosyn. Given findings of pneumonia with immunocompromised patient I will go ahead and consult ID for further evaluation. Agree with Zosyn as ordered for now and continue to monitor. PROBLEM 3: Nausea and vomiting. The patient had nausea and vomiting with apparent coffee-ground emesis here. He has a previous history of upper EGDs at [facility] with apparent findings of gastric ulcers in the past. He has been started on a Protonix drip at this point/Continue with supportive care and continue to monitor at this point. His hemoglobin is otherwise stable at this point at a level of 13. Avoid any transfusions unless absolutely necessary given the risk of antibody exposure with immunosuppression and renal transplant. Continue to closely monitor. Continue supportive care. PROBLEM 4: Type 1 diabetes. The patient has an insulin pump. Continue with insulin management. Continue to monitor. PROBLEM 5: Chronic eosinophilic leukemia. The patient is on Gleevec, continue with treatment. Continue to monitor at this point. MD VITOR MontagueP/EVERARDO /5:32 PM /10:04 PM [id number]
[2016-08-26] MEDS: SUCRALFATE 1 GM/10 ML CUP PO SCH (22:43)
[2016-08-26] MEDS: FAMOTIDINE 20 MG TAB PO SCH (22:44)
[2016-08-26] MEDS: CARVEDILOL 6.25 MG TAB PO SCH (22:44)
[2016-08-26] MEDS: MONTELUKAST SODIUM 10 MG TAB PO SCH (22:44)
[2016-08-26] MEDS: ATORVASTATIN 20 MG TAB PO SCH (22:44)
[2016-08-26] MEDS: INSULIN ASPART SUPPLEMENTAL SCALE SQ SCH (22:48)
[2016-08-26] MEDS: TACROLIMUS 1 MG CAP PO SCH (23:04)
[2016-08-26] MEDS: MYCOPHENOLATE MOFETIL 500 MG TAB PO SCH (23:05)
[2016-08-26] MEDS: IMATINIB MESYLATE 100 MG TAB PO SCH (23:38)
[2016-08-27] VITALS (7 sets, daily range): BP systolic 105–158; BP diastolic 56–87; PULSE 90–111; RESP 17–18; TEMP 98.1–99; O2SAT 97–100
[2016-08-27] MEDS: PIPERACIL-TAZO 4.5 GM PREMIX 100 ML IV SCH ×4 (01:10→18:00)
[2016-08-27] MEDS: metroNIDAZOLE 500 MG INJ 100 ML IV SCH ×2 (03:01→10:21)
[2016-08-27] MEDS: PANTOPRAZOLE SODIUM 40 MG VIAL IV PUSH SCH ×2 (06:00→18:00)
[2016-08-27] MEDS: SODIUM CHLOR 0.9% 1000 ML INJ 1,000 ML IV SCH ×2 (06:07→20:00)
[2016-08-27] MEDS: SUCRALFATE 1 GM/10 ML CUP PO SCH ×3 (06:07→17:00)
[2016-08-27] MEDS: INSULIN ASPART SUPPLEMENTAL SCALE SQ SCH ×4 (06:08→21:58)
[2016-08-27] MEDS ORDERED: AZITHROMYCIN INJ 500 MG in SODIUM CHLOR 0.9% 250 ML INJ 250 ML IV SCH (09:00)
[2016-08-27] MEDS: TACROLIMUS 1 MG CAP PO SCH ×2 (09:25→21:54)
[2016-08-27] MEDS: SERTRALINE HCL 50 MG TAB PO SCH (09:25)
[2016-08-27] MEDS: FAMOTIDINE 20 MG TAB PO SCH ×2 (09:25→21:55)
[2016-08-27] MEDS: CARVEDILOL 6.25 MG TAB PO SCH ×2 (09:25→21:55)
[2016-08-27] MEDS: SODIUM CHLORIDE 0.9% FLUSH 5 ML FLUSH IVF SCH ×2 (09:25→21:54)
[2016-08-27 09:45] LABS: AUTOMATED NEUTROPHIL # 2.6 TH/MM3 (1.8-7.7); BASOPHIL % 0.5 % (0.0-2.0); EOSINOPHIL % 0.2 % (0.0-4.0); HEMATOCRIT 38.2 % (39.0-51.0); LYMPH % 12.4 % (9.0-44.0); LYMPHOCYTE # 0.5 TH/MM3 (1.0-4.8); MEAN CELL VOLUME 83.4 FL (80.0-100.0); MEAN CORPUSCULAR HEMOGLOBIN 26.7 PG (27.0-34.0); MEAN CORPUSCULAR HGB CONC 31.9 % (32.0-36.0); MONO % 23.6 % (0.0-8.0); NEUT % 63.3 % (16.0-70.0); PLATELET COUNT 214 TH/MM3 (150-450); RED BLOOD COUNT 4.58 MIL/MM3 (4.50-5.90); RED CELL DISTRIBUTION WIDTH 13.5 % (11.6-17.2); WHITE BLOOD COUNT 4.2 TH/MM3 (4.0-11.0)
[2016-08-27 09:48] LABS: HEMO FLAGS AUTO DIFF
[2016-08-27 10:14] LABS: ALKALINE PHOSPHATASE 59 U/L (45-117); ALT (GPT) 14 U/L (12-78); ANION GAP 14 MEQ/L (5-15); AST (GOT) 8 U/L (15-37); BICARBONATE 19.9 MEQ/L (21.0-32.0); BLOOD UREA NITROGEN 28 MG/DL (7-18); CHLORIDE 100 MEQ/L (98-107); GLOMERULAR FILTRATION RATE 40 ML/MIN (>89); MAGNESIUM 2.1 MG/DL (1.5-2.5); POTASSIUM 4.4 MEQ/L (3.5-5.1); SODIUM (NA) 134 MEQ/L (136-145); TOTAL BILIRUBIN ADULT 0.5 MG/DL (0.2-1.0)
[2016-08-27] MEDS: MYCOPHENOLATE MOFETIL 500 MG TAB PO SCH ×2 (10:21→21:54)
[2016-08-27 10:39] LABS: SCAN/DIFF AUTO DIFF CONFIRMED
--- NOTE | 2016-08-27 11:19 | HHI.PR ---
Subjective Remarks Follow-up pneumonia/hematemesis/atypical chest pain 08/27/16-patient seen and examined; denies any more episode of hematemesis since admission more low-grade temp 99.8 at 21:50 PM however currently afebrile. Patient reports night sweats. by the bedside Objective Vitals Vital Signs Date Time Temp Pulse Resp B/P Pulse Ox O2 Delivery O2 Flow Rate FiO2 08/27/16 08:00 98.4 94 18 156/85 99 08/27/16 04:00 99.0 97 17 126/56 97 08/27/16 00:00 98.6 102 18 105/79 98 08/26/16 22:14 103 08/26/16 21:50 99.8 106 18 151/89 100 08/26/16 20:00 99 08/26/16 18:00 99.5 107 22 153/76 100 Room Air 08/26/16 18:00 99.5 107 22 153/76 100 Room Air 08/26/16 17:00 92 20 188/92 99 Room Air 08/26/16 14:44 98.9 100 19 182/92 100 Room Air 08/26/16 13:30 92 20 186/102 100 Room Air 08/26/16 11:30 96 20 167/99 100 Room Air 08/26/16 11:20 100 21 I/O 08/26/16 08/26/16 08/26/16 08/27/16 08/27/16 08/27/16 07:00 15:00 23:00 07:00 15:00 23:00 Intake Total 520 ml Output Total 500 ml Balance 20 ml Intake Oral 320 ml IV Total 200 ml Output Urine Total 500 ml Result Diagram: 08/27/16 0910 08/27/16 0910 Imaging Last Impressions Chest X-Ray 08/26/16 1100 Signed Impressions: Service Date/Time: Friday, August 26, 2016 11:42 - CONCLUSION: Wedge shaped parenchymal opacity in the superior aspect of the right middle lobe. The wedge-shaped appearance favors subsegmental atelectasis or parenchymal scar. Consolidation is felt less likely. Hernando Leblanc MD Chest CT 08/26/16 0000 Signed Impressions: Service Date/Time: Friday, August 26, 2016 13:32 - CONCLUSION: 1. The chest x-ray finding represents mild groundglass attenuation as well as a linear opacity with an appearance favoring an airspace process with associated atelectasis. It is located in the inferior aspect of the right upper lobe. Given the history of cough and fever this very likely represents an infectious process. Suggest followup imaging to confirm resolution following appropriate therapy. 2. Nonacute findings include mild coronary artery calcification and small hiatal hernia. Hernando Leblanc MD Objective Remarks GENERAL: NAD SKIN: Warm and dry. HEAD: Normocephalic. EYES: No scleral icterus. No injection or drainage. NECK: Supple, trachea midline. No JVD or lymphadenopathy. CARDIOVASCULAR: Regular rate and rhythm without murmurs, gallops, or rubs. RESPIRATORY: Breath sounds equal bilaterally. No accessory muscle use. GASTROINTESTINAL: Abdomen soft, non-tender, nondistended. MUSCULOSKELETAL: No cyanosis, or edema. BACK: Nontender without obvious deformity. No CVA tenderness. A/P Problem List: (1) Healthcare associated bacterial pneumonia ICD Code: J15.9 Status: Acute (2) GI bleed ICD Code: K92.2 Status: Acute (3) Pneumonia ICD Code: J18.9 Status: Acute (4) Chest pain ICD Code: R07.9 Status: Acute Assessment and Plan 45-year-old male with 45-year-old male with an extensive past medical history including DM, renal transplant on immunosuppressives, CML, CVA, PUD who presented with cough and vomiting Healthcare associated bacterial pneumonia: Failed outpatient therapy with amoxicillin. Chest x-ray and chest CT results reviewed, inferior right upper lobe infiltrate. Currently on IV Zosyn and Flagyl to cover for aspiration. urinary antigens pending. Continue nebs as needed. ID consult pending secondary to patient on immunosuppressive therapy. Hematemesis: Hemoglobin currently stable, monitor. Likely secondary to history of PUD. Continue Zantac. Increase Carafate. IV Protonix. Consult patient's real estate office manager. Antiemetics as needed. Baclofen as needed for hiccups. Clear liquids, diet per GI. Atypical chest pain: Possibly secondary to pneumonia and coughing vs hematemesis vs HTN as listed. EKG reviewed with LVH, nonspecific ST changes. ACS ruled out per protocol. Hold aspirin with bleeding as above. Continue statin. Oral and intravenous narcotics as needed for pain. Acute kidney injury on chronic kidney disease status post renal transplant: Likely secondary to decreased oral intake and vomiting. Creatinine 2.42, reportedly baseline since transplant is around 1.8, no recent labs for comparison. IVF. Appreciate input from nephrology. Continue Prograf and CellCept, check levels. Diabetes mellitus: Has insulin pump. Hypoglycemia protocol in place. Sliding scale coverage. Accelerated hypertension: Continue home carvedilol. Clonidine and hydralazine as needed. Other chronic medical conditions include CML, depression: Stable at this time and will continue home medications as indicated DVT prophylaxis: SCDs. Avoid chemical prophylaxis with bleeding. Problem Qualifiers (1) GI bleed: Qualified Code: K25.4 - Gastrointestinal hemorrhage associated with gastric ulcer (2) Pneumonia: Qualified Code: J18.1 - Pneumonia of right upper lobe due to infectious organism (3) Chest pain: Qualified Code: R07.9 - Chest pain, unspecified type Fito Dean MD Aug 27, 2016 11:19
--- NOTE | 2016-08-27 14:22 | MB ---
cc: GIGI BENITEZ DATE OF CONSULTATION: 08/27/2016. REASON FOR CONSULTATION: Coffee-ground emesis. HISTORY OF PRESENT ILLNESS: Mr. 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 The patient reports that for the past 5 days or so he has not been feeling well, having frequent episodes of nausea and vomiting but able to tolerate much of his medications p.o. He also developed some subjective fevers and productive cough. While in the emergency room ,he had one episode of coffee-ground emesis and reported it as being a large amount. He has not had any repeat episodes since then. He did have a history of esophagitis with esophageal ulcers last summer. He was scoped at that time by Dr. Perez who found a LA Grade C esophagitis and he was placed on twice a day proton pump inhibitor and Carafate. He did have a repeat endoscopy a few weeks after which showed healed ulcerations. Since then, he has been taking an acid pill and Carafate, which he has been able to wean down to one pill a day. At the time of interview, the patient denied any nausea. He did have one bowel movement which was formed, dark in color, but no gross blood noted blood on it. He reports some mild discomfort in the left ribcage area but otherwise no abdominal pain. PAST MEDICAL HISTORY: 1. End-stage renal disease secondary to diabetes type 1. 2. Status post kidney transplant. 3. Gastroesophageal reflux disease (GERD). 4. Esophagitis. 5. Dyslipidemia. 6. Hypertension. 7. Peripheral vascular disease. 8. Peripheral neuropathy. 9. History of previous CVA. 10. History of thyroid disease. FAMILY HISTORY: The patient's mother had hypertension. Father had type 1 diabetes and stroke as well as hypertension. SOCIAL HISTORY: He is . He quit smoking two years ago. He drinks alcohol socially. Denies any IV drug use. ALLERGIES: 1. BETHANECHOL. 2. CONTRAST MEDIA. MEDICATIONS: 1. Aspirin. 2. CellCept 1000 milligrams twice a day. 3. Coreg. 4. Vitamin D. 5. Gleevec one tablet daily. 6. Glycopyrrolate tablet twice a day. 7. Lipitor. 8. A multivitamin. 9. NovoLog insulin pump. 10. Prograf 3 milligrams p.o. twice a day. 11. Singulair. 12. Sucralfate one tablet daily. 13. Zantac 300 milligrams daily. 14. Zithromax p.o. REVIEW OF SYSTEMS: His review of systems is significant for nausea, vomiting, coffee-ground emesis, and cough, fevers. Otherwise, his fourteen-point review of systems is negative. PHYSICAL EXAMINATION: VITAL SIGNS: Temperature 98.4, heart rate of 94, respiratory rate of 18, blood pressure 156/85, satting 99% on room air. GENERAL: He is a well-developed male in no acute distress lying comfortably in bed. HEAD, EYES, EARS, NOSE, THROAT: Normocephalic and atraumatic. Extraocular muscles intact. Pupils equal, round and reactive to light and accommodation. The sclerae are nonicteric. Moist mucosa. No oral lesions. NECK: The neck is supple. No jugular venous distention. No lymphadenopathy. CARDIOVASCULAR: Tachycardic. S1 and S2. No murmurs, rubs or gallops. PULMONARY: Clear to auscultation bilaterally. No wheezing or rhonchi. ABDOMEN: Abdomen soft and nontender and nondistended. Pulses are present. EXTREMITIES: No cyanosis or edema. Pulses 2+ bilaterally. NEUROLOGIC: He is alert and oriented times three. Cranial nerves intact. Strength 5/5 throughout. No focal deficits. LABORATORY DATA: White blood cell count is 4.2, hemoglobin of 12.2, hematocrit of 38.2, platelet count of 214,000. Sodium 134, potassium 4.4, chloride 100, BUN 28, creatinine 2.16, glucose of 300, AST 80, ALT 14, alkaline phosphatase 59. INR is 1. IMAGING STUDIES: Chest x-ray showed wedge-shaped parenchymal opacity in the superior aspect of the right middle lobe; favor subsegmental atelectasis or parenchymal scar. Chest CT shows groundglass attenuation as well as new opacity with an appearance favoring airspace process with stated atelectasis. Non-acute findings. Mild coronary artery calcifications. Small hiatal hernia. ASSESSMENT: Mr. Thomason is a 45-year-old gentleman with past medical history significant for end-stage renal disease status post renal transplantation on immunosuppression. He also has a history of gastroesophageal reflux disease with previous episode of esophagitis for which he takes an H2 parisa and Carafate daily. He presented with complaints of nausea and vomiting, productive cough and fevers. There is concern for a possible underlying pneumonia. He did have one episode of coffee-ground emesis during his emergency room visit, nothing since. PLAN: 1. Coffee-ground emesis / GI bleeding: This may have been secondary to retching and Cecile-Atkins tear from nausea and vomiting episodes. May also have been a recurrence of his esophagitis. His hemoglobin has remained stable. He did drop a few decimals since yesterday most likely secondary to IV hydration. Recommend to continue to monitor hemoglobin and hematocrit every 12 hours. Transfuse if needed for a hemoglobin of less than 7. Will discontinue proton pump inhibitor IV drip. Recommend 40 milligrams of Protonix every 12 hours. Will also continue Carafate 1 gram before meals. At this time, we can advance his diet and monitor. If bleeding recurs or there is a significant drop in hemoglobin, will consider repeating upper endoscopy. GI will follow. 2. All other medical problems to be addressed by the primary team. We would like to thank Mr. Rayo for this consultation and for allowing us to participate in the care of Cinda. We will follow the patient along with you. Please call us with any questions or concerns. MD KAYLI Eastman/SUMA /10:59 AM /2:02 PM JING
--- NOTE | 2016-08-27 15:12 | PD.ID.CON ---
History of Present Illness Service Infectious Disease Consult Requested By Dr.Daniel Aguilera Reason for Consult Evaluation and Mment of Pneumonia in patient s/p renal transplant. Primary Care Physician Radha Barba MD Diagnoses: History of Present Illness is a 45 y/o AAM with PMHx significant for DM2 uncontrolled, renal transplant ( donor) in 2014 who is on immune suppressants (cellcept and Prograf). Post transplant he did not have any infections and Donor CMV and pt CMV negative per patients . He reportedly developed eosinophilic leukemia and was started on Gleevec. He reports compliance with medications and follow ups. His PMHx is also significant for CVA, PUD. Patients reports sick contacts: Patients daughter had typical flu like symptoms and was not treated with antivirals although she was sick for extended period of time. No testing was done but history review suggests Influenza. Patient and his developed symptoms subsequently. His recovered spontaneously but patient has continued to have sinus congestion, drainage, and cough. He reports cough productive of different colors to the sputum at times brown but now it is clearing up since admission. He denies any shortness of breath but reports chest pain mostly on left side which aggravates on movement and deep breath. He reports fevers 101.5 F at home. He also reports hiccups, nausea, decreased oral intake. He reports one episode of vomiting prior to admission. Pertinent positives and negatives: He has pet turtles and dogs. He denies any travel or living in fungal belts like [facility]. Daughter had flu like symptoms. Review of Systems Constitutional: COMPLAINS OF: Fever, Chills, DENIES: Diaphoretic episodes, Fatigue, Weight gain, Weight loss, Dizziness, Change in appetite, Night Sweats Endocrine: DENIES: Heat/cold intolerance, Polydipsia, Polyuria, Polyphagia Eyes: DENIES: Blurred vision, Diplopia, Eye inflammation, Eye pain, Vision loss , Photosensitivity, Double Vision Ears, nose, mouth, throat: DENIES: Tinnitus, Hearing loss, Vertigo, Nasal discharge, Oral lesions, Throat pain, Hoarseness, Ear Pain, Running Nose, Epistaxis, Sinus Pain, Toothache, Odynophagia Respiratory: COMPLAINS OF: Cough, Sputum production, Shortness of breath, DENIES: Apneas, Snoring, Wheezing, Hemoptysis Cardiovascular: COMPLAINS OF: Chest pain, DENIES: Palpitations, Syncope, Dyspnea on Exertion, PND, Lower Extremity Edema, Orthopnea, Claudication Gastrointestinal: DENIES: Abdominal pain, Black stools, Bloody stools, Constipation, Diarrhea, Nausea, Vomiting, Difficulty Swallowing, Anorexia Genitourinary: DENIES: Sexual dysfunction, Urinary frequency, Urinary incontinence, Urgency, Hematuria, Dysuria, Nocturia, Penile Discharge, Testicular Pain, Testicular Swelling Musculoskeletal: DENIES: Joint pain, Muscle aches, Stiffness, Joint Swelling, Back pain, Neck pain Integumentary: DENIES: Abnormal pigmentation, Nail changes, Pruritus, Rash Hematologic/lymphatic: DENIES: Bruising, Lymphadenopathy Immunologic/allergic: DENIES: Eczema, Urticaria Neurologic: DENIES: Abnormal gait, Headache, Localized weakness, Paresthesias, Seizures, Speech Problems, Tremor, Poor Balance Psychiatric: DENIES: Anxiety, Confusion, Mood changes, Depression, Hallucinations, Agitation, Suicidal Ideation, Homicidal Ideation, Delusions Past Family Social History Allergies: Coded Allergies: Bethanechol (Verified Allergy, Mild, DIAPHORESIS, 08/26/16) Contrast Media (Verified Allergy, Mild, ITCHING AND COUGHING, 08/26/16) Past Medical History Diabetes mellitus with gastroparesis, neuropathy, retinopathy Chronic kidney disease with history of renal transplant TIA/CVA, residual left upper extremity weakness History of DVT in the past History of CHF in the past History of cardiac arrhythmia status post cardioversion Peptic ulcer disease/GERD Hyperlipidemia Hypertension CML Depression Past Surgical History Renal transplant 2014. was the donor. Multiple toe amputations Cardioversion EGD/colonoscopy Left upper extremity AV fistula placement next in penile implant Bone marrow biopsy Left knee surgery Reported Medications Reported Meds & Active Scripts Active Reported Aspirin 81 Mg Tabdr 81 Mg PO DAILY Amoxicillin 500 Mg Cap 500 Mg PO TID 10 Days Azithromycin 250 Mg Tab 250 Mg PO DAILY Protonix (Pantoprazole Sodium) 40 Mg Tab 40 Mg PO DAILY Sertraline (Sertraline HCl) 50 Mg Tab 50 Mg PO DAILY Novolog Inj (Insulin Aspart) 1,000 Unit/10 Ml Vial 0 SQ DIRECTED Sliding Scale as directed. Lipitor (Atorvastatin Calcium) 20 Mg Tab 20 Mg PO HS Singulair (Montelukast Sodium) 10 Mg Tab 10 Mg PO HS Gleevec (Imatinib Mesylate) 100 Mg Tab 100 Mg PO HS Coreg (Carvedilol) 6.25 Mg Tab 6.25 Mg PO BID Cellcept (Mycophenolate Mofetil) 500 Mg Tab 1,000 Mg PO BID Prograf (Tacrolimus) 1 Mg Cap 3 Mg PO BID Zantac (Ranitidine HCl) 300 Mg Tab 300 Mg PO BID Carafate (Sucralfate) 1 Gm Tab 1 Gm PO DAILY On empty stomach Active Ordered Medications Current Medications Medications (Trade) Dose Ordered Sig/Roque Route Start Time Stop Time Status Last Admin (NS 1000 ml Inj) 1,000 ml @ 84 mls/hr [id number] IV 08/26/16 15:30 08/27/16 06:07 (Lipitor) 20 mg HS PO 08/26/16 21:00 08/26/16 22:44 (Coreg) 6.25 mg BID PO 08/26/16 21:00 08/27/16 09:25 (Singulair) 10 mg HS PO 08/26/16 21:00 08/26/16 22:44 (Cellcept) 1,000 mg BID PO 08/26/16 21:00 08/27/16 10:21 (Pepcid) 10 mg BID PO 08/26/16 21:00 08/27/16 09:25 (Zoloft) 50 mg DAILY PO 08/27/16 09:00 08/27/16 09:25 (Prograf) 3 mg BID PO 08/26/16 21:00 08/27/16 09:25 (Gleevec) 100 mg HS PO 08/26/16 21:00 08/26/16 23:38 (Zofran Inj) 4 mg Q6H PRN IVP 08/26/16 16:45 (Tylenol) 650 mg Q6H PRN PO 08/26/16 16:45 (Stirling 5-325 Mg) 1 tab Q4H PRN PO 08/26/16 16:45 (Stirling 7.5-325 Mg) 1 tab Q4H PRN PO 08/26/16 16:45 (Morphine Inj) 4 mg Q3H PRN IV 08/26/16 16:45 (Lioresal) 10 mg BID PRN PO 08/26/16 17:00 08/26/16 22:44 (NS Flush) 2 ml UNSCH PRN IVF 08/26/16 17:00 08/27/16 01:10 IV Flush 2 ml 2 ml BID IVF 08/26/16 21:00 08/27/16 09:25 (Zosyn 4.5 Gm Premix) 100 ml @ 200 mls/hr Q6H IV 08/26/16 18:00 08/27/16 12:00 (Protonix Inj) 40 mg Q12H IV PUSH 08/26/16 18:00 (D50w (Vial) Inj) 25 ml UNSCH PRN IV PUSH 08/26/16 17:30 (Glucagon Inj) 1 mg UNSCH PRN OTHER 08/26/16 17:30 (Catapres) 0.1 mg Q6H PRN PO 08/26/16 17:45 (Apresoline Inj) 20 mg Q4H PRN IV PUSH 08/26/16 17:45 08/26/16 17:52 (Zofran Inj) 4 mg Q6H PRN IV 08/26/16 20:00 08/26/16 22:31 (Nubia-Colace) 1 tab BID PRN PO 08/26/16 20:00 (Restoril) 15 mg HS PRN PO 08/26/16 20:00 (Carafate Liq) 1 gm TIDAC PO 08/27/16 12:00 08/27/16 12:00 Oseltamivir Phosphate 30 mg 30 mg BID PO 08/27/16 21:00 09/01/16 09:01 (Zyvox 600 Mg Premix) 300 ml @ 300 mls/hr Q12H IV 08/27/16 16:00 Family History reviewed and NC to current ID problems. Social History No alcohol, no smoking, No IVDA. Lives at home with his . Physical Exam Vital Signs Vital Signs Date Time Temp Pulse Resp B/P Pulse Ox O2 Delivery O2 Flow Rate FiO2 08/27/16 12:00 98.1 95 18 123/73 97 08/27/16 08:00 98.4 94 18 156/85 99 08/27/16 04:00 99.0 97 17 126/56 97 08/27/16 00:00 98.6 102 18 105/79 98 08/26/16 22:14 103 08/26/16 21:50 99.8 106 18 151/89 100 08/26/16 20:00 99 08/26/16 18:00 99.5 107 22 153/76 100 Room Air 08/26/16 18:00 99.5 107 22 153/76 100 Room Air 08/26/16 17:00 92 20 188/92 99 Room Air Physical Exam GENERAL: This is a well-nourished, well-developed patient, in no apparent distress. SKIN: No rashes, ecchymoses or lesions. Cool and dry. HEAD: Atraumatic. Normocephalic. No temporal or scalp tenderness. EYES: Pupils equal round and reactive. Extraocular motions intact. No scleral icterus. No injection or drainage. ENT: Nose without bleeding, purulent drainage or septal hematoma. Throat without erythema, tonsillar hypertrophy or exudate. Uvula midline. Airway patent. NECK: Trachea midline. Supple, nontender, no meningeal signs. CARDIOVASCULAR: HS audible. RESPIRATORY: Clear to auscultation. Breath sounds equal bilaterally. No wheezes , rales, or rhonchi. GASTROINTESTINAL: Abdomen soft, non-tender, nondistended. MUSCULOSKELETAL: Extremities without clubbing, cyanosis, or edema. No joint tenderness, effusion, or edema noted. No calf tenderness. Negative Homans sign bilaterally. NEUROLOGICAL: Awake and alert. Grossly non focal Psych: cooperative IV line sites with no e/o infection. Laboratory Laboratory Tests Test 08/26/16 08/26/16 08/26/16 08/27/16 15:50 17:30 23:22 09:10 Urine Color YELLOW Urine Turbidity CLEAR Urine pH 5.0 Urine Specific [place] 1.020 Urine Protein TRACE Urine Glucose (UA) 1000 Urine Ketones 40 Urine Occult Blood TRACE Urine Nitrite NEG Urine Bilirubin NEG Urine Urobilinogen LESS THAN 2.0 Urine Leukocyte Esterase NEG Urine RBC LESS THAN 1 Urine WBC LESS THAN 1 Urine Squamous Epithelial <1 Cells Microscopic Urinalysis Comment CATH-CULT NOT IND Total Creatine Kinase 117 170 Troponin I LESS THAN 0.02 0.02 White Blood Count 4.2 Red Blood Count 4.58 Hemoglobin 12.2 Hematocrit 38.2 Mean Corpuscular Volume 83.4 Mean Corpuscular Hemoglobin 26.7 Mean Corpuscular Hemoglobin 31.9 Concent Red Cell Distribution Width 13.5 Platelet Count 214 Mean Platelet Volume 8.8 Neutrophils (%) (Auto) 63.3 Lymphocytes (%) (Auto) 12.4 Monocytes (%) (Auto) 23.6 Eosinophils (%) (Auto) 0.2 Basophils (%) (Auto) 0.5 Neutrophils # (Auto) 2.6 Lymphocytes # (Auto) 0.5 Monocytes # (Auto) 1.0 Eosinophils # (Auto) 0.0 Basophils # (Auto) 0.0 CBC Comment AUTO DIFF Differential Comment AUTO DIFF CONFIRMED Sodium Level 134 Potassium Level 4.4 Chloride Level 100 Carbon Dioxide Level 19.9 Anion Gap 14 Blood Urea Nitrogen 28 Creatinine 2.16 Estimat Glomerular Filtration 40 Rate Random Glucose 300 Calcium Level 8.6 Phosphorus Level 2.2 Magnesium Level 2.1 Total Bilirubin 0.5 Aspartate Amino Transf 8 (AST/SGOT) Alanine Aminotransferase 14 (ALT/SGPT) Alkaline Phosphatase 59 Total Protein 7.1 Albumin 3.3 Tacrolimus (Prograf) Level 6.7 Date/Time Procedure Status Source Growth 08/26/16 15:50 Legionella Antigen - Final Complete Urine Clean Catch PRESUMPTIVE NEGATIVE FOR LEGIONELLA P... 08/26/16 15:50 Streptococcus pneumoniae Antigen (M - Final Complete Urine Clean Catch PRESUMPTIVE NEGATIVE FOR STREPTOCOCCU... 08/26/16 11:09 Aerobic Blood Culture - Preliminary Resulted Blood Peripheral NO GROWTH IN 1 DAY 08/26/16 11:09 Anaerobic Blood Culture - Preliminary Resulted Blood Peripheral NO GROWTH IN 1 DAY Result Diagram: 08/27/16 0910 08/27/16 0910 Imaging Last Impressions Chest X-Ray 08/26/16 1100 Signed Impressions: Service Date/Time: Friday, August 26, 2016 11:42 - CONCLUSION: Wedge shaped parenchymal opacity in the superior aspect of the right middle lobe. The wedge-shaped appearance favors subsegmental atelectasis or parenchymal scar. Consolidation is felt less likely. Heranndo Leblanc MD Chest CT 08/26/16 0000 Signed Impressions: Service Date/Time: Friday, August 26, 2016 13:32 - CONCLUSION: 1. The chest x-ray finding represents mild groundglass attenuation as well as a linear opacity with an appearance favoring an airspace process with associated atelectasis. It is located in the inferior aspect of the right upper lobe. Given the history of cough and fever this very likely represents an infectious process. Suggest followup imaging to confirm resolution following appropriate therapy. 2. Nonacute findings include mild coronary artery calcification and small hiatal hernia. Hernando Leblanc MD Assessment and Plan Assessment and Plan Pneumonia in a patient s/p Kidney transplant 2014. Influenza A positive Pneumonia Possible Secondary Bacterial infection. Immune compromised on Cellcept and Prograf. New worsening renal function. Outpt plan for ? renal biopsy per renal notes. DM2 uncontrolled Recs: Continue Zosyn IV DC Vanco IV Start Zyvox IV (would like to avoid nephrotoxins in transplant patient) DC Azithro IV (Legionella Ag negative) Follow Mycoplasma testing. Check Flu antigen (ordered in am) Start Tamiflu (d/w Clinical pharmacist : dose at 30 mg po bid for 5 days. Sputum cultures Follow cultures Follow clinically. d/w and . Debbie Swartz MD Aug 27, 2016 15:12 Debbie Swartz MD Aug 27, 2016 15:12
[2016-08-27] MEDS ORDERED: OSELTAMIVIR PHOSPHATE 75 MG CAP PO SCH (15:45)
[2016-08-27] MEDS: LINEZOLID 600 MG PREMIX 300 ML IV SCH (16:00)
--- NOTE | 2016-08-27 16:17 | HHI.NPPN ---
Subjective Additional Remarks Feeling better today, no further vomiting today Objective Data Data 08/26/16 08/27/16 19:00 07:00 Intake Total 520 ml Output Total 500 ml Balance 20 ml Intake Oral 320 ml IV Total 200 ml Output Urine Total 500 ml Vital Signs Date Time Temp Pulse Resp B/P Pulse Ox O2 Delivery O2 Flow Rate FiO2 08/27/16 12:00 98.1 95 18 123/73 97 08/27/16 08:00 98.4 94 18 156/85 99 08/27/16 04:00 99.0 97 17 126/56 97 08/27/16 00:00 98.6 102 18 105/79 98 08/26/16 22:14 103 08/26/16 21:50 99.8 106 18 151/89 100 08/26/16 20:00 99 08/26/16 18:00 99.5 107 22 153/76 100 Room Air 08/26/16 18:00 99.5 107 22 153/76 100 Room Air 08/26/16 17:00 92 20 188/92 99 Room Air -: 08/27/16 0910 08/27/16 0910 Microbiology 08/27/16 Influenza Types A,B Antigen (MICHELA) - Final, Complete Positive For Flu A Antigen Physical Exam General Appearance: Well Developed, Well Nourished, No Acute Distress Eyes Eye Exam: Pupils Equal Throat Throat Exam: Oral Mucosa [place] & Moist Neck Neck Exam: Neck Supple Pulmonary Resp Exam: Clear Bilaterally Cardiology CV Exam: Regular, Normal Sinus Rhythm Gastrointestinal/Abdomen GI Exam: Soft, Non-Tender, Bowel Sounds Present Musculoskeletal MS Exam: Joints Intact Integumentary Skin Exam: Dry, Intact Extremeties Extremities Exam: No Edema Neurologic Neuro Exam: Alert, Awake, Oriented, Speech Clear Psychiatric Psych Exam: Appropriate Responses Assessment/Plan Problem List: (1) MARIO (acute kidney injury) Plan: Creatinine improving with IVFs - MARIO likely due to volume depletion from emesis and decreased PO intake. Baseline creatinine near 1.9 Continue IVFs for now, will add HCO3. Patient not eating much today. If further tolerating PO intake tomorrow, may consider to d/c IVFs. (2) Renal transplant, status post Plan: The patient has had funding issues and has not been able to follow up with [facility] post-transplant, however, he has followed up locally with Dr. Purandare here. Prednisone free immunosuppression with: CellCept 1000 milligrams b.i.d. Prograf 3 milligrams b.i.d. Prograf level of 6 this morning. Continue immunosuppression for now. (3) Pneumonia Plan: Apparent signs of pneumonia per CT scan. Seen with ID - continue antibiotics and renal dose, also findings of influenza on nasal swab. (4) GI bleed Plan: Initial coffee ground emesis with history of peptic ulcer disease. Hgb stable, continue PPI per GI. No further emesis today. (5) Influenza Plan: Positive influenza antigen, patient did not receive flu shot. 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
[2016-08-27] MEDS: ATORVASTATIN 20 MG TAB PO SCH (21:55)
[2016-08-27] MEDS: MONTELUKAST SODIUM 10 MG TAB PO SCH (21:58)
[2016-08-27] MEDS: OSELTAMIVIR PHOSPHATE 30 MG CAP PO SCH (21:58)
[2016-08-27] MEDS: IMATINIB MESYLATE 100 MG TAB PO SCH (22:03)
--- NOTE | 2016-08-27 23:32 | EKG ---
Date Performed: 08/26/2016 Time Performed: 23:32:44 PTAGE: 45 years EKG: Sinus tachycardia Normal ECG except for rate PREVIOUS TRACING : 08/26/2016 17.39 Compared to prior tracing no significant change DOCTOR: Binh Garcia Interpretating Date/Time 08/27/2016 23:30:27
[2016-08-28] VITALS (8 sets, daily range): BP systolic 112–188; BP diastolic 59–97; PULSE 83–122; RESP 17–18; TEMP 97.2–98.6; O2SAT 95–100
[2016-08-28] MEDS: PIPERACIL-TAZO 4.5 GM PREMIX 100 ML IV SCH ×5 (00:10→23:49)
[2016-08-28] MEDS: LINEZOLID 600 MG PREMIX 300 ML IV SCH ×2 (04:27→15:55)
[2016-08-28] MEDS: PANTOPRAZOLE SODIUM 40 MG VIAL IV PUSH SCH ×2 (06:13→17:03)
[2016-08-28] MEDS: INSULIN ASPART SUPPLEMENTAL SCALE SQ SCH ×4 (06:13→21:27)
[2016-08-28 08:08] LABS: AUTOMATED NEUTROPHIL # 1.3 TH/MM3 (1.8-7.7); BASOPHIL % 0.7 % (0.0-2.0); EOSINOPHIL % 1.5 % (0.0-4.0); LYMPH % 17.2 % (9.0-44.0); LYMPHOCYTE # 0.4 TH/MM3 (1.0-4.8); MEAN CELL VOLUME 82.5 FL (80.0-100.0); MEAN CORPUSCULAR HEMOGLOBIN 26.4 PG (27.0-34.0); MEAN CORPUSCULAR HGB CONC 32.1 % (32.0-36.0); NEUT % 62.6 % (16.0-70.0); PLATELET COUNT 210 TH/MM3 (150-450); RED BLOOD COUNT 4.61 MIL/MM3 (4.50-5.90); RED CELL DISTRIBUTION WIDTH 13.5 % (11.6-17.2); WHITE BLOOD COUNT 2.1 TH/MM3 (4.0-11.0)
[2016-08-28 08:11] LABS: HEMO FLAGS AUTO DIFF
[2016-08-28 08:40] LABS: BICARBONATE 22.1 MEQ/L (21.0-32.0); POTASSIUM 3.9 MEQ/L (3.5-5.1)
[2016-08-28] MEDS: SODIUM CHLORIDE 0.9% FLUSH 5 ML FLUSH IVF SCH ×2 (09:00→21:21)
[2016-08-28] MEDS ORDERED: GLUCAGON 1 MG/ML VIAL OTHER PRN (09:00)
[2016-08-28] MEDS ORDERED: DEXTROSE 50% IN WATER 50 ML VIAL(D50) IV PUSH PRN (09:00)
--- NOTE | 2016-08-28 09:05 | HHI.PR ---
Subjective Remarks Follow-up pneumonia/hematemesis/atypical chest pain/uncontrolled diabetes/ influenza type A 08/27/16-patient seen and examined; denies any more episode of hematemesis since admission more low-grade temp 99.8 at 21:50 PM however currently afebrile. Patient reports night sweats. by the bedside 08/28/16-patient seen and examined, report improvement of Symptoms. Started on treatment for influenza A. No more hematemesis. Objective Vitals Vital Signs Date Time Temp Pulse Resp B/P Pulse Ox O2 Delivery O2 Flow Rate FiO2 08/28/16 04:00 97.2 90 17 188/91 99 08/28/16 00:00 97.6 86 17 176/91 98 08/27/16 20:03 95 08/27/16 20:00 98.7 97 18 150/74 100 08/27/16 16:00 98.1 90 18 158/87 99 08/27/16 12:00 98.1 95 18 123/73 97 I/O 08/27/16 08/27/16 08/27/16 08/28/16 08/28/16 08/28/16 07:00 15:00 23:00 07:00 15:00 23:00 Intake Total 520 ml 480 ml 280 ml 1370 ml Output Total 500 ml 650 ml Balance 20 ml -170 ml 280 ml 1370 ml Intake Oral 320 ml 480 ml 280 ml 120 ml IV Total 200 ml 1250 ml Output Urine Total 500 ml 650 ml # Voids 3 3 # Bowel Movements 1 1 1 Result Diagram: 08/28/16 0713 08/28/16 0713 Imaging Last Impressions Chest X-Ray 08/26/16 1100 Signed Impressions: Service Date/Time: Friday, August 26, 2016 11:42 - CONCLUSION: Wedge shaped parenchymal opacity in the superior aspect of the right middle lobe. The wedge-shaped appearance favors subsegmental atelectasis or parenchymal scar. Consolidation is felt less likely. Hernando Leblanc MD Chest CT 08/26/16 0000 Signed Impressions: Service Date/Time: Friday, August 26, 2016 13:32 - CONCLUSION: 1. The chest x-ray finding represents mild groundglass attenuation as well as a linear opacity with an appearance favoring an airspace process with associated atelectasis. It is located in the inferior aspect of the right upper lobe. Given the history of cough and fever this very likely represents an infectious process. Suggest followup imaging to confirm resolution following appropriate therapy. 2. Nonacute findings include mild coronary artery calcification and small hiatal hernia. Hernando Leblanc MD Objective Remarks GENERAL: NAD SKIN: Warm and dry. HEAD: Normocephalic. EYES: No scleral icterus. No injection or drainage. NECK: Supple, trachea midline. No JVD or lymphadenopathy. CARDIOVASCULAR: Regular rate and rhythm without murmurs, gallops, or rubs. RESPIRATORY: Breath sounds equal bilaterally. No accessory muscle use. GASTROINTESTINAL: Abdomen soft, non-tender, nondistended. MUSCULOSKELETAL: No cyanosis, or edema. BACK: Nontender without obvious deformity. No CVA tenderness. A/P Problem List: (1) Healthcare associated bacterial pneumonia ICD Code: J15.9 Status: Acute (2) GI bleed ICD Code: K92.2 Status: Acute (3) Pneumonia ICD Code: J18.9 Status: Acute (4) Chest pain ICD Code: R07.9 Status: Acute (5) DM (diabetes mellitus) ICD Code: E11.9 Status: Acute Assessment and Plan 45-year-old male with 45-year-old male with an extensive past medical history including DM, renal transplant on immunosuppressives, CML, CVA, PUD who presented with cough and vomiting Healthcare associated bacterial pneumonia: Failed outpatient therapy with amoxicillin. Chest x-ray and chest CT results reviewed, inferior right upper lobe infiltrate. Currently on IV Zosyn and Zyvox per infectious disease specialist. urinary antigens pending. Continue nebs as needed. Influenza type A: Flu antigen A positive, patient currently on Tamiflu 30 mg twice a day 10 doses total until 09/01/16 Hematemesis: Hemoglobin currently stable, monitor. Likely secondary to history of PUD. Continue Zantac, Carafate and IV Protonix. Appreciate input from gastroenterology. Antiemetics as needed. Baclofen as needed for hiccups. Atypical chest pain: Now resolved. Possibly secondary to pneumonia and coughing vs hematemesis vs HTN as listed. EKG reviewed with LVH, nonspecific ST changes. ACS ruled out per protocol. Hold aspirin with bleeding as above. Continue statin. Oral and intravenous narcotics as needed for pain. Acute kidney injury on chronic kidney disease status post renal transplant: Likely secondary to decreased oral intake and vomiting. Creatinine 2.42, reportedly baseline since transplant is around 1.8, no recent labs for comparison. Renal indices improving and appreciate input from nephrology currently on IV fluid hydration. Continue Prograf and CellCept, check levels. Diabetes mellitus: Has insulin pump however off therefore patient was asked to resume it. Change insulin sliding scale to medium. Hypoglycemia protocol in place. Sliding scale coverage. Accelerated hypertension: Resolved and Continue home carvedilol. Clonidine and hydralazine as needed. Other chronic medical conditions include CML, depression: Stable at this time and continue home medications as indicated DVT prophylaxis: SCDs. Avoid chemical prophylaxis with bleeding. 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
[2016-08-28 09:36] LABS: PLATELET ESTIMATE SMEAR NORMAL (NORMAL); PLATELET MORPHOLOGY NORMAL (NORMAL); SCAN/DIFF AUTO DIFF CONFIRMED
[2016-08-28] MEDS: TACROLIMUS 1 MG CAP PO SCH ×2 (09:36→21:22)
[2016-08-28] MEDS: MYCOPHENOLATE MOFETIL 500 MG TAB PO SCH ×2 (09:36→21:22)
[2016-08-28] MEDS: CARVEDILOL 6.25 MG TAB PO SCH ×2 (09:36→21:23)
[2016-08-28] MEDS: FAMOTIDINE 20 MG TAB PO SCH ×2 (09:36→21:23)
[2016-08-28] MEDS: SUCRALFATE 1 GM/10 ML CUP PO SCH ×3 (09:36→17:03)
[2016-08-28] MEDS: SERTRALINE HCL 50 MG TAB PO SCH (09:36)
[2016-08-28] MEDS: OSELTAMIVIR PHOSPHATE 30 MG CAP PO SCH ×2 (09:36→21:24)
[2016-08-28] MEDS: SODIUM CHLOR 0.9% 1000 ML INJ 1,000 ML IV SCH ×2 (09:48→15:10)
--- NOTE | 2016-08-28 11:15 | HHI.GIFU ---
Subjective Remarks Pt doing well, denies any nausea or vomiting, no new episodes of hematemesis reported. Had one loose dark BM. Reports some pain when swallowing hot/warm food. Objective Vitals I&O Vital Signs Date Time Temp Pulse Resp B/P Pulse Ox O2 Delivery O2 Flow Rate FiO2 08/28/16 04:00 97.2 90 17 188/91 99 08/28/16 00:00 97.6 86 17 176/91 98 08/27/16 20:03 95 08/27/16 20:00 98.7 97 18 150/74 100 08/27/16 16:00 98.1 90 18 158/87 99 08/27/16 12:00 98.1 95 18 123/73 97 I/O 08/27/16 08/27/16 08/27/16 08/28/16 08/28/16 08/28/16 07:00 15:00 23:00 07:00 15:00 23:00 Intake Total 520 ml 480 ml 280 ml 1370 ml Output Total 500 ml 650 ml Balance 20 ml -170 ml 280 ml 1370 ml Intake Oral 320 ml 480 ml 280 ml 120 ml IV Total 200 ml 1250 ml Output Urine Total 500 ml 650 ml # Voids 3 3 # Bowel Movements 1 1 1 Laboratory Laboratory Tests Test 08/28/16 07:13 White Blood Count 2.1 Red Blood Count 4.61 Hemoglobin 12.2 Hematocrit 38.0 Mean Corpuscular Volume 82.5 Mean Corpuscular Hemoglobin 26.4 Mean Corpuscular Hemoglobin 32.1 Concent Red Cell Distribution Width 13.5 Platelet Count 210 Mean Platelet Volume 9.0 Neutrophils (%) (Auto) 62.6 Lymphocytes (%) (Auto) 17.2 Monocytes (%) (Auto) 18.0 Eosinophils (%) (Auto) 1.5 Basophils (%) (Auto) 0.7 Neutrophils # (Auto) 1.3 Lymphocytes # (Auto) 0.4 Monocytes # (Auto) 0.4 Eosinophils # (Auto) 0.0 Basophils # (Auto) 0.0 CBC Comment AUTO DIFF Differential Comment AUTO DIFF CONFIRMED Platelet Estimate NORMAL Platelet Morphology Comment NORMAL Red Cell Morphology Comment NORMAL Sodium Level 136 Potassium Level 3.9 Chloride Level 103 Carbon Dioxide Level 22.1 Anion Gap 11 Blood Urea Nitrogen 19 Creatinine 1.90 Estimat Glomerular Filtration 47 Rate Random Glucose 337 Calcium Level 9.0 Date/Time Procedure Status Source Growth 1/23/17 04:00 Gram Stain - Final Resulted Sputum Expectorated Sputum 08/28/16 04:00 Sputum Culture Resulted Sputum Expectorated Sputum Pending 08/27/16 14:10 Influenza Types A,B Antigen (MICHELA) - Final Complete Nasal Aspirate Positive For Flu A Antigen 08/26/16 15:50 Legionella Antigen - Final Complete Urine Clean Catch PRESUMPTIVE NEGATIVE FOR LEGIONELLA P... 08/26/16 15:50 Streptococcus pneumoniae Antigen (M - Final Complete Urine Clean Catch PRESUMPTIVE NEGATIVE FOR STREPTOCOCCU... 08/26/16 11:09 Aerobic Blood Culture - Preliminary Resulted Blood Peripheral NO GROWTH IN 1 DAY 08/26/16 11:09 Anaerobic Blood Culture - Preliminary Resulted Blood Peripheral NO GROWTH IN 1 DAY Physical Exam HEENT: Pupils round and reactive to light; normocephalic; atraumatic; no jaundice. Throat is clear. NECK: Neck is supple, no JVD, no lymphadenopathy. ABDOMEN: Soft, nondistended, nontender; no hepatosplenomegaly; bowel sounds are present in all four quadrants. EXTREMITIES: No clubbing, cyanosis, or edema. SKIN: Normal; no rash; no jaundice. FAIRGROUND OPERATOR: No focal deficits; alert and oriented times three. Assessment and Plan Assessment: (1) GI bleed Plan 1. Hematemesis/GI bleed - no new episodes reported, hb stable - possible Cecile morrison tear from retching vs esophagitis - continue supportive care - monitor hb daily - continue PPI 40mg BID and Carafate 1g QAC - will add magic mouthwash for c/o dysphagia with hot/warm meals - will hold on EGD for now, patient pn droplet precautions, tested + for influenza 2. All other medical problems to be addressed by primary team Problem Qualifiers (1) GI bleed: Qualified Code: K25.4 - Gastrointestinal hemorrhage associated with gastric ulcer Aureliano Muller MD Aug 28, 2016 11:15
[2016-08-28] MEDS: NYSTATIN SUSP 500,000 U/5 ML CUP SWISH-SWAL SCH ×3 (13:00→21:22)
[2016-08-28] MEDS: NYSTAT/DIPHENHY/LIDO MOUTHWASH (Adult) 120ML SWISH-SWAL SCH ×3 (15:53→21:21)
--- NOTE | 2016-08-28 16:30 | HHI.NPPN ---
Subjective Additional Remarks Feeling better today, no further vomiting today Objective Data Data 08/27/16 08/28/16 19:00 07:00 Intake Total 480 ml 1650 ml Output Total 650 ml Balance -170 ml 1650 ml Intake Oral 480 ml 400 ml IV Total 1250 ml Output Urine Total 650 ml # Voids 6 # Bowel Movements 1 2 Vital Signs Date Time Temp Pulse Resp B/P Pulse Ox O2 Delivery O2 Flow Rate FiO2 08/28/16 12:00 98.1 92 18 112/59 95 08/28/16 09:00 122 08/28/16 08:00 98.3 83 18 155/79 99 08/28/16 08:00 Room Air 08/28/16 04:00 97.2 90 17 188/91 99 08/28/16 00:00 97.6 86 17 176/91 98 08/27/16 20:03 95 08/27/16 20:00 98.7 97 18 150/74 100 -: 08/28/16 0713 08/28/16 0713 Microbiology 08/28/16 Gram Stain - Final, Resulted 08/28/16 Sputum Culture, Resulted Pending Physical Exam General Appearance: Well Developed, Well Nourished, No Acute Distress Eyes Eye Exam: Pupils Equal Throat Throat Exam: Oral Mucosa [place] & Moist Neck Neck Exam: Neck Supple Pulmonary Resp Exam: Clear Bilaterally Cardiology CV Exam: Regular, Normal Sinus Rhythm Gastrointestinal/Abdomen GI Exam: Soft, Non-Tender, Bowel Sounds Present Musculoskeletal MS Exam: Joints Intact Integumentary Skin Exam: Dry, Intact Extremeties Extremities Exam: No Edema Neurologic Neuro Exam: Alert, Awake, Oriented, Speech Clear Psychiatric Psych Exam: Appropriate Responses Assessment/Plan Problem List: (1) MARIO (acute kidney injury) Plan: Creatinine improving with IVFs - 1.9 MARIO likely due to volume depletion from emesis and decreased PO intake. Baseline creatinine near 1.9 may dc IVF D/W Dr. Swartz may stop Zyvox by tomorrow WBC dropped FK 7.4 (2) Renal transplant, status post Plan: The patient has had funding issues and has not been able to follow up with [facility] post-transplant, however, he has followed up locally with Dr. Valenzuela here. Prednisone free immunosuppression with: CellCept 1000 milligrams b.i.d. Prograf 3 milligrams b.i.d. Prograf level of 7.4 Continue immunosuppression for now. (3) Pneumonia Plan: Apparent signs of pneumonia per CT scan. Seen with ID - continue antibiotics and renal dose, also findings of influenza on nasal swab. (4) GI bleed Plan: Initial coffee ground emesis with history of peptic ulcer disease. Hgb stable, continue PPI per GI. No further emesis today. (5) Influenza Plan: Positive influenza antigen, patient did not receive flu shot. 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
[2016-08-28] MEDS ORDERED: INSULIN ASPAR PROT 70/30 1,000 UNITS/10 ML VIAL SQ SCH (17:00)
--- NOTE | 2016-08-28 18:04 | HHI.IDPN ---
Subjective Subjective Remarks is a 45 y/o AAM with PMHx significant for DM2 uncontrolled, renal transplant ( donor) in 2015 who is on immune suppressants (cellcept and Prograf). ID following for Influenza pneumonia, possible secondary bacterial pneumonia. Overnight events reviewed. No fever No rash No diarrhea Antibiotics Zosyn IV Zyvox IV Tamiflu Lines Line sites with no e/o infection. Past Medical History reviewed Allergies: Coded Allergies: Bethanechol (Verified Allergy, Mild, DIAPHORESIS, 08/26/16) Contrast Media (Verified Allergy, Mild, ITCHING AND COUGHING, 08/26/16) Objective . Vital Signs Date Time Temp Pulse Resp B/P Pulse Ox O2 Delivery O2 Flow Rate FiO2 08/28/16 16:00 98.4 83 18 173/94 100 08/28/16 12:00 98.1 92 18 112/59 95 08/28/16 09:00 122 08/28/16 08:00 98.3 83 18 155/79 99 08/28/16 08:00 Room Air 08/28/16 04:00 97.2 90 17 188/91 99 08/28/16 00:00 97.6 86 17 176/91 98 08/27/16 20:03 95 08/27/16 20:00 98.7 97 18 150/74 100 08/27/16 08/27/16 08/28/16 15:00 23:00 07:00 Intake Total 480 ml 280 ml 1370 ml Output Total 650 ml Balance -170 ml 280 ml 1370 ml Intake Oral 480 ml 280 ml 120 ml IV Total 1250 ml Output Urine Total 650 ml # Voids 3 3 # Bowel Movements 1 1 1 . Laboratory Tests Test 08/27/16 08/28/16 09:10 07:13 White Blood Count 4.2 TH/MM3 2.1 TH/MM3 Red Blood Count 4.58 MIL/MM3 4.61 MIL/MM3 Hemoglobin 12.2 GM/DL 12.2 GM/DL Hematocrit 38.2 % 38.0 % Mean Corpuscular Volume 83.4 FL 82.5 FL Mean Corpuscular Hemoglobin 26.7 PG 26.4 PG Mean Corpuscular Hemoglobin 31.9 % 32.1 % Concent Red Cell Distribution Width 13.5 % 13.5 % Platelet Count 214 TH/MM3 210 TH/MM3 Mean Platelet Volume 8.8 FL 9.0 FL Neutrophils (%) (Auto) 63.3 % 62.6 % Lymphocytes (%) (Auto) 12.4 % 17.2 % Monocytes (%) (Auto) 23.6 % 18.0 % Eosinophils (%) (Auto) 0.2 % 1.5 % Basophils (%) (Auto) 0.5 % 0.7 % Neutrophils # (Auto) 2.6 TH/MM3 1.3 TH/MM3 Lymphocytes # (Auto) 0.5 TH/MM3 0.4 TH/MM3 Monocytes # (Auto) 1.0 TH/MM3 0.4 TH/MM3 Eosinophils # (Auto) 0.0 TH/MM3 0.0 TH/MM3 Basophils # (Auto) 0.0 TH/MM3 0.0 TH/MM3 CBC Comment AUTO DIFF AUTO DIFF Differential Comment AUTO DIFF AUTO DIFF CONFIRMED CONFIRMED Platelet Estimate NORMAL Platelet Morphology Comment NORMAL Red Cell Morphology Comment NORMAL Laboratory Tests Test 08/26/16 08/27/16 08/28/16 23:22 09:10 07:13 Total Creatine Kinase 170 U/L Troponin I 0.02 NG/ML Sodium Level 134 MEQ/L 136 MEQ/L Potassium Level 4.4 MEQ/L 3.9 MEQ/L Chloride Level 100 MEQ/L 103 MEQ/L Carbon Dioxide Level 19.9 MEQ/L 22.1 MEQ/L Anion Gap 14 MEQ/L 11 MEQ/L Blood Urea Nitrogen 28 MG/DL 19 MG/DL Creatinine 2.16 MG/DL 1.90 MG/DL Estimat Glomerular Filtration 40 ML/MIN 47 ML/MIN Rate Random Glucose 300 MG/DL 337 MG/DL Calcium Level 8.6 MG/DL 9.0 MG/DL Phosphorus Level 2.2 MG/DL Magnesium Level 2.1 MG/DL Total Bilirubin 0.5 MG/DL Aspartate Amino Transf 8 U/L (AST/SGOT) Alanine Aminotransferase 14 U/L (ALT/SGPT) Alkaline Phosphatase 59 U/L Total Protein 7.1 GM/DL Albumin 3.3 GM/DL Microbiology Date/Time Procedure Status Source Growth 08/26/16 11:00 Aerobic Blood Culture - Preliminary Resulted Blood Peripheral NO GROWTH IN 2 DAYS 08/26/16 11:00 Anaerobic Blood Culture - Preliminary Resulted Blood Peripheral NO GROWTH IN 2 DAYS 08/26/16 11:09 Aerobic Blood Culture - Preliminary Resulted Blood Peripheral NO GROWTH IN 2 DAYS 08/26/16 11:09 Anaerobic Blood Culture - Preliminary Resulted Blood Peripheral NO GROWTH IN 2 DAYS 08/26/16 15:50 Legionella Antigen - Final Complete Urine Clean Catch PRESUMPTIVE NEGATIVE FOR LEGIONELLA P... 08/26/16 15:50 Streptococcus pneumoniae Antigen (M - Final Complete Urine Clean Catch PRESUMPTIVE NEGATIVE FOR STREPTOCOCCU... 08/27/16 14:10 Influenza Types A,B Antigen (MICHELA) - Final Complete Nasal Aspirate Positive For Flu A Antigen 08/28/16 04:00 Gram Stain - Final Resulted Sputum Expectorated Sputum 08/28/16 04:00 Sputum Culture Resulted Sputum Expectorated Sputum Pending Imaging Last Impressions Chest X-Ray 08/26/16 1100 Signed Impressions: Service Date/Time: Friday, August 26, 2016 11:42 - CONCLUSION: Wedge shaped parenchymal opacity in the superior aspect of the right middle lobe. The wedge-shaped appearance favors subsegmental atelectasis or parenchymal scar. Consolidation is felt less likely. Hernando Leblanc MD Chest CT 08/26/16 0000 Signed Impressions: Service Date/Time: Friday, August 26, 2016 13:32 - CONCLUSION: 1. The chest x-ray finding represents mild groundglass attenuation as well as a linear opacity with an appearance favoring an airspace process with associated atelectasis. It is located in the inferior aspect of the right upper lobe. Given the history of cough and fever this very likely represents an infectious process. Suggest followup imaging to confirm resolution following appropriate therapy. 2. Nonacute findings include mild coronary artery calcification and small hiatal hernia. Hernando Leblanc MD Physical Exam GENERAL: This is a well-nourished, well-developed patient, in no apparent distress. SKIN: No rashes, ecchymoses or lesions. Cool and dry. HEAD: Atraumatic. Normocephalic. No temporal or scalp tenderness. EYES: Pupils equal round and reactive. Extraocular motions intact. No scleral icterus. No injection or drainage. ENT: Nose without bleeding, purulent drainage or septal hematoma. Throat without erythema, tonsillar hypertrophy or exudate. Uvula midline. Airway patent. NECK: Trachea midline. Supple, nontender, no meningeal signs. CARDIOVASCULAR: HS audible. RESPIRATORY: Clear to auscultation. Breath sounds equal bilaterally. No wheezes , rales, or rhonchi. GASTROINTESTINAL: Abdomen soft, non-tender, nondistended. MUSCULOSKELETAL: Extremities without clubbing, cyanosis, or edema. No joint tenderness, effusion, or edema noted. No calf tenderness. Negative Homans sign bilaterally. NEUROLOGICAL: Awake and alert. Grossly non focal Psych: cooperative IV line sites with no e/o infection. Assessment & Plan Remarks Pneumonia in a patient s/p Kidney transplant 2014. Influenza A positive Pneumonia Possible Secondary Bacterial infection. Immune compromised on Cellcept and Prograf. New worsening renal function. Outpt plan for ? renal biopsy per renal notes. DM2 uncontrolled Recs: Continue Zosyn IV Continue Zyvox IV (would like to avoid nephrotoxins in transplant patient). If Leucopenia worsens and sputum cultures negative will DC Zyvox. Follow Mycoplasma testing. Continue Tamiflu (d/w Clinical pharmacist : dose at 30 mg po bid for 5 days. Sputum cultures Follow cultures Follow clinically. d/w pt and Debbie Swartz MD Aug 28, 2016 18:04
[2016-08-28] MEDS ORDERED: BENZONATATE 100 MG CAP PO PRN (20:45)
--- NOTE | 2016-08-28 20:54 | EKG ---
Date Performed: 08/26/2016 Time Performed: 17:39:27 PTAGE: 45 years EKG: Sinus rhythm POSSIBLE LEFT ATRIAL ENLARGEMENT POSSIBLE LEFT VENTRICULAR HYPERTROPHY WITH SECONDARY ST/T WAVE PARNELL GES ABNORMAL ECG PREVIOUS TRACING : 08/26/2016 10.57 DOCTOR: Binh Garcia Interpretating Date/Time 08/28/2016 20:53:45
[2016-08-28] MEDS: ATORVASTATIN 20 MG TAB PO SCH (21:23)
[2016-08-28] MEDS: LACTOBACILLUS ACIDOPHILUS TAB PO SCH (21:23)
[2016-08-28] MEDS: MONTELUKAST SODIUM 10 MG TAB PO SCH (21:24)
[2016-08-28] MEDS: IMATINIB MESYLATE 100 MG TAB PO SCH (21:27)
--- NOTE | 2016-08-28 21:47 | EKG ---
Date Performed: 08/26/2016 Time Performed: 10:57:32 PTAGE: 45 years EKG: Sinus rhythm POSSIBLE LEFT ATRIAL ENLARGEMENT POSSIBLE LEFT VENTRICULAR HYPERTROPHY ABNORMAL ECG PREVIOUS TRACING : 02/12/2014 22.48 Compared to the previous tracing, previous non-specific ST/ T wave changes are no longer noted DOCTOR: Binh Garcia Interpretating Date/Time 08/28/2016 21:45:29
[2016-08-29] VITALS (10 sets, daily range): BP systolic 123–162; BP diastolic 73–95; PULSE 82–94; RESP 16–20; TEMP 97.3–98.6; O2SAT 98–100
[2016-08-29] MEDS: LINEZOLID 600 MG PREMIX 300 ML IV SCH (04:49)
[2016-08-29] MEDS: SODIUM CHLOR 0.9% 1000 ML INJ 1,000 ML IV SCH ×2 (04:50→15:00)
[2016-08-29] MEDS: PIPERACIL-TAZO 4.5 GM PREMIX 100 ML IV SCH ×2 (06:28→12:38)
[2016-08-29] MEDS: PANTOPRAZOLE SODIUM 40 MG VIAL IV PUSH SCH ×2 (06:28→16:47)
[2016-08-29] MEDS: INSULIN ASPART SUPPLEMENTAL SCALE SQ SCH ×4 (06:34→21:00)
[2016-08-29 07:21] LABS: AUTOMATED NEUTROPHIL # 0.9 TH/MM3 (1.8-7.7); EOSINOPHIL # 0.1 TH/MM3 (0-0.4); EOSINOPHIL % 3.2 % (0.0-4.0); HEMATOCRIT 39.5 % (39.0-51.0); LYMPHOCYTE # 0.4 TH/MM3 (1.0-4.8); MEAN CELL VOLUME 82.9 FL (80.0-100.0); MEAN CORPUSCULAR HEMOGLOBIN 26.4 PG (27.0-34.0); MEAN CORPUSCULAR HGB CONC 31.9 % (32.0-36.0); MONO % 21.1 % (0.0-8.0); NEUT % 50.7 % (16.0-70.0); PLATELET COUNT 194 TH/MM3 (150-450); RED BLOOD COUNT 4.77 MIL/MM3 (4.50-5.90); RED CELL DISTRIBUTION WIDTH 13.3 % (11.6-17.2); WHITE BLOOD COUNT 1.9 TH/MM3 (4.0-11.0)
[2016-08-29 07:26] LABS: HEMO FLAGS AUTO DIFF
[2016-08-29 07:46] LABS: ANION GAP 11 MEQ/L (5-15); BICARBONATE 24.7 MEQ/L (21.0-32.0); BLOOD UREA NITROGEN 12 MG/DL (7-18); CHLORIDE 100 MEQ/L (98-107); GLOMERULAR FILTRATION RATE 47 ML/MIN (>89); POTASSIUM 3.7 MEQ/L (3.5-5.1); SODIUM (NA) 136 MEQ/L (136-145)
[2016-08-29 08:32] LABS: EOSINOPHILS 3 % (0-4); PLATELET ESTIMATE SMEAR NORMAL (NORMAL); PLATELET MORPHOLOGY NORMAL (NORMAL); POLYS (SEG NEUTROPHILS) 50 % (16-70); SCAN/DIFF FINAL DIFF MANUAL; WBC DIFF SAMPLE 100
[2016-08-29 08:33] LABS: BURR CELLS 1+ (NORMAL)
[2016-08-29] MEDS: NYSTAT/DIPHENHY/LIDO MOUTHWASH (Adult) 120ML SWISH-SWAL SCH ×4 (09:00→22:35)
[2016-08-29] MEDS: LACTOBACILLUS ACIDOPHILUS TAB PO SCH ×2 (09:00→22:01)
[2016-08-29] MEDS: SODIUM CHLORIDE 0.9% FLUSH 5 ML FLUSH IVF SCH ×2 (09:00→21:00)
[2016-08-29] MEDS: OSELTAMIVIR PHOSPHATE 30 MG CAP PO SCH ×2 (09:00→22:00)
[2016-08-29] MEDS: CARVEDILOL 6.25 MG TAB PO SCH ×2 (09:37→22:03)
[2016-08-29] MEDS: SERTRALINE HCL 50 MG TAB PO SCH (09:37)
[2016-08-29] MEDS: TACROLIMUS 1 MG CAP PO SCH ×2 (09:37→22:01)
[2016-08-29] MEDS: NYSTATIN SUSP 500,000 U/5 ML CUP SWISH-SWAL SCH ×4 (09:37→22:06)
[2016-08-29] MEDS: FAMOTIDINE 20 MG TAB PO SCH ×2 (09:37→22:03)
[2016-08-29] MEDS: MYCOPHENOLATE MOFETIL 500 MG TAB PO SCH ×2 (09:37→22:00)
[2016-08-29] MEDS: SUCRALFATE 1 GM/10 ML CUP PO SCH ×3 (09:38→16:45)
--- NOTE | 2016-08-29 11:04 | HHI.NPPN ---
Subjective Additional Remarks Feeling better today, no further vomiting today Objective Data Data 08/28/16 08/29/16 19:00 07:00 Intake Total 951 ml 720 ml Output Total 850 ml Balance 951 ml -130 ml Intake Oral 720 ml IV Total 951 ml Output Urine Total 850 ml # Bowel Movements 1 Vital Signs Date Time Temp Pulse Resp B/P Pulse Ox O2 Delivery O2 Flow Rate FiO2 08/29/16 10:47 98 21 08/29/16 10:10 94 08/29/16 08:00 98.5 93 20 159/82 100 08/29/16 04:00 97.3 92 18 130/86 100 08/29/16 00:49 98 08/29/16 00:00 98.3 86 18 161/83 98 08/28/16 22:03 84 08/28/16 20:00 98.6 91 18 167/97 100 08/28/16 20:00 Room Air 08/28/16 16:00 98.4 83 18 173/94 100 08/28/16 12:00 98.1 92 18 112/59 95 -: 08/29/16 0644 08/29/16 0644 Physical Exam General Appearance: Well Developed, Well Nourished, No Acute Distress Eyes Eye Exam: Pupils Equal Throat Throat Exam: Oral Mucosa [place] & Moist Neck Neck Exam: Neck Supple Pulmonary Resp Exam: Clear Bilaterally Cardiology CV Exam: Regular, Normal Sinus Rhythm Gastrointestinal/Abdomen GI Exam: Soft, Non-Tender, Bowel Sounds Present Musculoskeletal MS Exam: Joints Intact Integumentary Skin Exam: Dry, Intact Extremeties Extremities Exam: No Edema Neurologic Neuro Exam: Alert, Awake, Oriented, Speech Clear Psychiatric Psych Exam: Appropriate Responses Assessment/Plan Problem List: (1) MARIO (acute kidney injury) Plan: Creatinine improving with IVFs - 1.9 MARIO likely due to volume depletion from emesis and decreased PO intake. Baseline creatinine near 1.9 may dc IVF D/W Dr. Swartz may stop Zyvox by today WBC dropped 1.9 FK 7.4 (2) Renal transplant, status post Plan: The patient has had funding issues and has not been able to follow up with [facility] post-transplant, however, he has followed up locally with Dr. Valenzuela here. Prednisone free immunosuppression with: CellCept 1000 milligrams b.i.d. Prograf 3 milligrams b.i.d. Prograf level of 7.4 Continue immunosuppression for now. (3) Pneumonia Plan: Apparent signs of pneumonia per CT scan. Seen with ID - continue antibiotics and renal dose, also findings of influenza on nasal swab. (4) GI bleed Plan: Initial coffee ground emesis with history of peptic ulcer disease. Hgb stable, continue PPI per GI. No further emesis today. (5) Influenza Plan: Positive influenza antigen, patient did not receive flu shot. 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
--- NOTE | 2016-08-29 11:33 | HHI.PR ---
Subjective Remarks Follow-up pneumonia/hematemesis/atypical chest pain/uncontrolled diabetes/ influenza type A 08/27/16-patient seen and examined; denies any more episode of hematemesis since admission more low-grade temp 99.8 at 21:50 PM however currently afebrile. Patient reports night sweats. by the bedside 08/28/16-patient seen and examined, report improvement of Symptoms. Started on treatment for influenza A. No more hematemesis. 08/29/16-patient seen and examined; states he is feeling much better since admission. No more vomiting. Afebrile. Blood glucose up. Patient was eating breakfast brought from outside. Objective Vitals Vital Signs Date Time Temp Pulse Resp B/P Pulse Ox O2 Delivery O2 Flow Rate FiO2 08/29/16 10:47 98 21 08/29/16 10:10 94 08/29/16 08:00 98.5 93 20 159/82 100 08/29/16 04:00 97.3 92 18 130/86 100 08/29/16 00:49 98 08/29/16 00:00 98.3 86 18 161/83 98 08/28/16 22:03 84 08/28/16 20:00 98.6 91 18 167/97 100 08/28/16 20:00 Room Air 08/28/16 16:00 98.4 83 18 173/94 100 08/28/16 12:00 98.1 92 18 112/59 95 I/O 08/28/16 08/28/16 08/28/16 08/29/16 08/29/16 08/29/16 07:00 15:00 23:00 07:00 15:00 23:00 Intake Total 1370 ml 951 ml 240 ml 480 ml 662 ml Output Total 550 ml 300 ml Balance 1370 ml 951 ml -310 ml 180 ml 662 ml Intake Oral 120 ml 240 ml 480 ml IV Total 1250 ml 951 ml 662 ml Output Urine Total 550 ml 300 ml # Voids 3 # Bowel Movements 1 1 Result Diagram: 08/29/16 0644 08/29/16 0644 Imaging Last Impressions Chest X-Ray 08/26/16 1100 Signed Impressions: Service Date/Time: Friday, August 26, 2016 11:42 - CONCLUSION: Wedge shaped parenchymal opacity in the superior aspect of the right middle lobe. The wedge-shaped appearance favors subsegmental atelectasis or parenchymal scar. Consolidation is felt less likely. Hernando Leblanc MD Chest CT 08/26/16 0000 Signed Impressions: Service Date/Time: Friday, August 26, 2016 13:32 - CONCLUSION: 1. The chest x-ray finding represents mild groundglass attenuation as well as a linear opacity with an appearance favoring an airspace process with associated atelectasis. It is located in the inferior aspect of the right upper lobe. Given the history of cough and fever this very likely represents an infectious process. Suggest followup imaging to confirm resolution following appropriate therapy. 2. Nonacute findings include mild coronary artery calcification and small hiatal hernia. Hernando Leblanc MD Objective Remarks GENERAL: NAD SKIN: Warm and dry. HEAD: Normocephalic. EYES: No scleral icterus. No injection or drainage. NECK: Supple, trachea midline. No JVD or lymphadenopathy. CARDIOVASCULAR: Regular rate and rhythm without murmurs, gallops, or rubs. RESPIRATORY: Breath sounds equal bilaterally. No accessory muscle use. GASTROINTESTINAL: Abdomen soft, non-tender, nondistended. MUSCULOSKELETAL: No cyanosis, or edema. BACK: Nontender without obvious deformity. No CVA tenderness. A/P Problem List: (1) Healthcare associated bacterial pneumonia ICD Code: J15.9 Status: Acute (2) GI bleed ICD Code: K92.2 Status: Acute (3) Pneumonia ICD Code: J18.9 Status: Acute (4) Chest pain ICD Code: R07.9 Status: Acute (5) DM (diabetes mellitus) ICD Code: E11.9 Status: Acute (6) Leucopenia ICD Code: D72.819 Status: Acute Assessment and Plan 45-year-old male with an extensive past medical history including DM, renal transplant on immunosuppressives, CML, CVA, PUD who presented with cough and vomiting Healthcare associated bacterial pneumonia: Failed outpatient therapy with amoxicillin. Chest x-ray and chest CT results reviewed, inferior right upper lobe infiltrate. Currently on IV Zosyn and Zyvox per infectious disease specialist. urinary antigens negative. Sputum culture pending Continue nebs as needed. Influenza type A: Flu antigen A positive, patient currently on Tamiflu 30 mg twice a day 10 doses total until 09/01/16 Leukopenia: Worsening, patient currently on Zyvox. Sputum culture pending. Infectious disease to consider alternative antibiotic Hematemesis: Hemoglobin currently stable, monitor. Likely secondary to history of PUD. Continue Zantac, Carafate and IV Protonix. Appreciate input from gastroenterology. Antiemetics as needed. Baclofen as needed for hiccups. Atypical chest pain: Now resolved. Possibly secondary to pneumonia and coughing vs hematemesis vs HTN as listed. EKG reviewed with LVH, nonspecific ST changes. ACS ruled out per protocol. Hold aspirin with bleeding as above. Continue statin. Oral and intravenous narcotics as needed for pain. Acute kidney injury on chronic kidney disease status post renal transplant: Likely secondary to decreased oral intake and vomiting. Creatinine 2.42, reportedly baseline since transplant is around 1.8, no recent labs for comparison. Renal indices improving and appreciate input from nephrology currently on IV fluid hydration. Continue Prograf and CellCept, check levels. Diabetes mellitus: Labile blood glucose despite patient's pain back on his insulin pump. Had ACHS coverage and continue insulin sliding scale to medium. Patient advised to stick to ADA diet Accelerated hypertension: Resolved and Continue home carvedilol. Clonidine and hydralazine as needed. Other chronic medical conditions include CML, depression: Stable at this time and continue home medications as indicated DVT prophylaxis: SCDs. Avoid chemical prophylaxis with bleeding. 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
--- NOTE | 2016-08-29 11:49 | HHI.GIFU ---
Subjective Remarks Pt doing well, dysphagia resolved. No further episodes of emesis or hematemesis reported. Had soft/loose brown stool. Objective Vitals I&O Vital Signs Date Time Temp Pulse Resp B/P Pulse Ox O2 Delivery O2 Flow Rate FiO2 08/29/16 10:47 98 21 08/29/16 10:10 94 08/29/16 08:00 98.5 93 20 159/82 100 08/29/16 04:00 97.3 92 18 130/86 100 08/29/16 00:49 98 08/29/16 00:00 98.3 86 18 161/83 98 08/28/16 22:03 84 08/28/16 20:00 98.6 91 18 167/97 100 08/28/16 20:00 Room Air 08/28/16 16:00 98.4 83 18 173/94 100 08/28/16 12:00 98.1 92 18 112/59 95 I/O 08/28/16 08/28/16 08/28/16 08/29/16 08/29/16 08/29/16 07:00 15:00 23:00 07:00 15:00 23:00 Intake Total 1370 ml 951 ml 240 ml 480 ml 662 ml Output Total 550 ml 300 ml Balance 1370 ml 951 ml -310 ml 180 ml 662 ml Intake Oral 120 ml 240 ml 480 ml IV Total 1250 ml 951 ml 662 ml Output Urine Total 550 ml 300 ml # Voids 3 # Bowel Movements 1 1 Laboratory Laboratory Tests Test 08/29/16 06:44 White Blood Count 1.9 Red Blood Count 4.77 Hemoglobin 12.6 Hematocrit 39.5 Mean Corpuscular Volume 82.9 Mean Corpuscular Hemoglobin 26.4 Mean Corpuscular Hemoglobin 31.9 Concent Red Cell Distribution Width 13.3 Platelet Count 194 Mean Platelet Volume 8.9 Neutrophils (%) (Auto) 50.7 Lymphocytes (%) (Auto) 24.0 Monocytes (%) (Auto) 21.1 Eosinophils (%) (Auto) 3.2 Basophils (%) (Auto) 1.0 Neutrophils # (Auto) 0.9 Lymphocytes # (Auto) 0.4 Monocytes # (Auto) 0.4 Eosinophils # (Auto) 0.1 Basophils # (Auto) 0.0 CBC Comment AUTO DIFF Differential Total Cells 100 Counted Neutrophils % (Manual) 50 Lymphocytes % 25 Monocytes % 22 Eosinophils % 3 Neutrophils # (Manual) 1.0 Differential Comment FINAL DIFF MANUAL Platelet Estimate NORMAL Platelet Morphology Comment NORMAL Jocelynn Cells 1+ Sodium Level 136 Potassium Level 3.7 Chloride Level 100 Carbon Dioxide Level 24.7 Anion Gap 11 Blood Urea Nitrogen 12 Creatinine 1.91 Estimat Glomerular Filtration 47 Rate Random Glucose 394 Calcium Level 9.0 Date/Time Procedure Status Source Growth 08/28/16 04:00 Gram Stain - Final Resulted Sputum Expectorated Sputum 08/28/16 04:00 Sputum Culture Resulted Sputum Expectorated Sputum Pending 08/27/16 14:10 Influenza Types A,B Antigen (MICHELA) - Final Complete Nasal Aspirate Positive For Flu A Antigen 08/26/16 15:50 Legionella Antigen - Final Complete Urine Clean Catch PRESUMPTIVE NEGATIVE FOR LEGIONELLA P... 08/26/16 15:50 Streptococcus pneumoniae Antigen (M - Final Complete Urine Clean Catch PRESUMPTIVE NEGATIVE FOR STREPTOCOCCU... 08/26/16 11:09 Aerobic Blood Culture - Preliminary Resulted Blood Peripheral NO GROWTH IN 3 DAYS 08/26/16 11:09 Anaerobic Blood Culture - Preliminary Resulted Blood Peripheral NO GROWTH IN 3 DAYS Physical Exam HEENT: Pupils round and reactive to light; normocephalic; atraumatic; no jaundice. Throat is clear. NECK: Neck is supple, no JVD, no lymphadenopathy. ABDOMEN: Soft, nondistended, nontender; no hepatosplenomegaly; bowel sounds are present in all four quadrants. EXTREMITIES: No clubbing, cyanosis, or edema. SKIN: Normal; no rash; no jaundice. 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 Assessment and Plan Assessment: (1) GI bleed Plan 1. Hematemesis/GI bleed - no new episodes reported, hb stable - possible Cecile morrison tear from retching vs esophagitis, resolved - continue PPI 40mg BID for 8 weeks, then can decrease to 40mg PO daily - Carafate 1g QAC for 2 weeks, then can decrease to 1g BID - continue magic mouthwash - no endoscopic intervention recommended at this time 2. All other medical problems to be addressed by primary team GI will sign off. Pt to follow with Dr. Perez as outpatient. Please call with any questions. Thank you for this consult. Problem Qualifiers (1) GI bleed: Qualified Code: K25.4 - Gastrointestinal hemorrhage associated with gastric ulcer Aureliano Muller MD Aug 29, 2016 11:49
[2016-08-29] MEDS: LEVOFLOXACIN 500 MG TAB PO SCH (16:45)
[2016-08-29] MEDS: INSULIN ASPART 1,000 UNITS/10 ML VIAL SQ SCH (16:46)
[2016-08-29 17:14] LABS: HEMOGLOBIN A1a 1.4 %; HEMOGLOBIN A1b 1.2 %; HEMOGLOBIN Ao 75.3 %; HEMOGLOBIN F 1.9 %; HEMOGLOBIN LA1C 3.9 %; HEMOGLOBIN P3 5.6 %
[2016-08-29] MEDS: ATORVASTATIN 20 MG TAB PO SCH (22:02)
[2016-08-29] MEDS: IMATINIB MESYLATE 100 MG TAB PO SCH (22:04)
[2016-08-29] MEDS: MONTELUKAST SODIUM 10 MG TAB PO SCH (22:05)
[2016-08-30] VITALS (7 sets, daily range): BP systolic 109–161; BP diastolic 69–87; PULSE 95–97; RESP 16–18; TEMP 98.3–98.5; O2SAT 98–100
[2016-08-30] MEDS: SODIUM CHLOR 0.9% 1000 ML INJ 1,000 ML IV SCH ×2 (03:53→13:12)
[2016-08-30] MEDS: INSULIN ASPART SUPPLEMENTAL SCALE SQ SCH ×4 (05:54→21:47)
[2016-08-30] MEDS: PANTOPRAZOLE SODIUM 40 MG VIAL IV PUSH SCH ×2 (05:54→16:53)
[2016-08-30] MEDS: SODIUM CHLORIDE 0.9% FLUSH 5 ML FLUSH IVF SCH ×2 (09:00→21:00)
[2016-08-30] MEDS: NYSTATIN SUSP 500,000 U/5 ML CUP SWISH-SWAL SCH ×4 (09:21→21:48)
[2016-08-30] MEDS: CARVEDILOL 6.25 MG TAB PO SCH ×2 (09:21→21:51)
[2016-08-30] MEDS: TACROLIMUS 1 MG CAP PO SCH ×2 (09:21→21:48)
[2016-08-30] MEDS: SERTRALINE HCL 50 MG TAB PO SCH (09:21)
[2016-08-30] MEDS: NYSTAT/DIPHENHY/LIDO MOUTHWASH (Adult) 120ML SWISH-SWAL SCH ×4 (09:21→21:51)
[2016-08-30] MEDS: MYCOPHENOLATE MOFETIL 500 MG TAB PO SCH ×2 (09:22→21:48)
[2016-08-30] MEDS: LACTOBACILLUS ACIDOPHILUS TAB PO SCH ×2 (09:22→21:00)
[2016-08-30] MEDS: FAMOTIDINE 20 MG TAB PO SCH ×2 (09:22→21:50)
[2016-08-30] MEDS: INSULIN ASPART 1,000 UNITS/10 ML VIAL SQ SCH ×2 (09:23→16:57)
[2016-08-30] MEDS: SUCRALFATE 1 GM/10 ML CUP PO SCH ×3 (09:32→16:53)
[2016-08-30] MEDS: LEVOFLOXACIN 500 MG TAB PO SCH (09:32)
[2016-08-30 11:53] LABS: BASOPHIL % 1.1 % (0.0-2.0); EOSINOPHIL # 0.1 TH/MM3 (0-0.4); EOSINOPHIL % 4.9 % (0.0-4.0); HEMATOCRIT 38.5 % (39.0-51.0); LYMPH % 27.9 % (9.0-44.0); LYMPHOCYTE # 0.6 TH/MM3 (1.0-4.8); MEAN CELL VOLUME 82.6 FL (80.0-100.0); MEAN CORPUSCULAR HEMOGLOBIN 27.2 PG (27.0-34.0); MEAN CORPUSCULAR HGB CONC 32.9 % (32.0-36.0); MONO % 18.2 % (0.0-8.0); NEUT % 47.9 % (16.0-70.0); PLATELET COUNT 241 TH/MM3 (150-450); RED BLOOD COUNT 4.66 MIL/MM3 (4.50-5.90); RED CELL DISTRIBUTION WIDTH 13.5 % (11.6-17.2)
[2016-08-30 11:54] LABS: HEMO FLAGS AUTO DIFF
[2016-08-30] MEDS: OSELTAMIVIR PHOSPHATE 30 MG CAP PO SCH ×2 (12:13→22:10)
[2016-08-30 12:21] LABS: BICARBONATE 22.5 MEQ/L (21.0-32.0); POTASSIUM 4.1 MEQ/L (3.5-5.1)
--- NOTE | 2016-08-30 13:22 | RADRPT ---
EXAM DATE/TIME: 08/30/2016 12:31 [place] COMPARISON: CHEST PA & LAT, August 26, 2016, 11:42. INDICATIONS : Evaluate pneumonia. MEDICAL HISTORY : Hypertension. Diabetes mellitus type I. SURGICAL HISTORY : Left kidney transplant. Cateract surgery. Penile implant. Left knee arthroscopy. ENCOUNTER: Subsequent ACUITY: 4 - 6 days PAIN SCORE: 0/10 LOCATION: chest FINDINGS: A single view of the chest demonstrates the lungs to be symmetrically aerated without evidence of mas s, infiltrate or effusion. The cardiomediastinal contours are unremarkable. Osseous structures are intact. CONCLUSION: No acute disease. Hernando Pillai MD on August 30, 2016 at 13:20 Board Certified Radiologist. This report was verified electronically.
[2016-08-30 13:29] LABS: BANDS 4 % (0-6); BASOPHILS 1 % (0-2); EOSINOPHILS 3 % (0-4); NEUTROPHIL # MANUAL DIFF 1.1 TH/MM3 (1.8-7.7); POLYS (SEG NEUTROPHILS) 49 % (16-70); WBC DIFF SAMPLE 100
[2016-08-30 13:31] LABS: KERATOCYTES OCC (NORMAL); PLATELET ESTIMATE SMEAR NORMAL (NORMAL); PLATELET MORPHOLOGY NORMAL (NORMAL); SCAN/DIFF FINAL DIFF MANUAL
[2016-08-30 13:43] LABS: MYCOPLASMA PNEUMONIAE S BY IFA Positive (Negative)
--- NOTE | 2016-08-30 14:19 | HHI.NPPN ---
Subjective Additional Remarks Feeling better today, no further vomiting today Objective Data Data 08/29/16 08/30/16 19:00 07:00 Intake Total 1622 ml 3669 ml Output Total 1875 ml Balance 1622 ml 1794 ml Intake Oral 960 ml 2040 ml IV Total 662 ml 1629 ml Output Urine Total 1875 ml # Voids 3 # Bowel Movements 1 0 Vital Signs Date Time Temp Pulse Resp B/P Pulse Ox O2 Delivery O2 Flow Rate FiO2 08/30/16 12:15 100 08/30/16 12:00 98.3 96 16 109/69 100 08/30/16 08:00 98.5 96 16 155/80 99 08/30/16 04:00 98.5 95 16 148/87 98 08/29/16 23:49 98.3 86 16 162/95 99 08/29/16 20:08 98.6 93 16 159/89 100 08/29/16 20:00 Room Air 08/29/16 16:00 98.1 82 16 151/82 100 -: 08/30/16 1123 08/30/16 1123 Physical Exam General Appearance: Well Developed, Well Nourished, No Acute Distress Eyes Eye Exam: Pupils Equal Throat Throat Exam: Oral Mucosa [place] & Moist Neck Neck Exam: Neck Supple Pulmonary Resp Exam: Clear Bilaterally Cardiology CV Exam: Regular, Normal Sinus Rhythm Gastrointestinal/Abdomen GI Exam: Soft, Non-Tender, Bowel Sounds Present Musculoskeletal MS Exam: Joints Intact Integumentary Skin Exam: Dry, Intact Extremeties Extremities Exam: No Edema Neurologic Neuro Exam: Alert, Awake, Oriented, Speech Clear Psychiatric Psych Exam: Appropriate Responses Assessment/Plan Problem List: (1) MARIO (acute kidney injury) Plan: Creatinine improving with IVFs - 1.9 MARIO likely due to volume depletion from emesis and decreased PO intake. Baseline creatinine near 1.9 may dc IVF WBC 2 last FK 7.4 (2) Renal transplant, status post Plan: The patient has had funding issues and has not been able to follow up with [facility] post-transplant, however, he has followed up locally with Dr. Valenzuela here. Prednisone free immunosuppression with: CellCept 1000 milligrams b.i.d. Prograf 3 milligrams b.i.d. Prograf level of 7.4 Continue immunosuppression for now. (3) Pneumonia Plan: Seen with ID - continue antibiotics and renal dose, also findings of influenza on nasal swab. (4) GI bleed Plan: No further emesis today. (5) Influenza Plan: Positive influenza antigen, patient did not receive flu shot. 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
[2016-08-30] MEDS ORDERED: LEVA500T PO (15:10)
[2016-08-30] MEDS ORDERED: OSEL30 PO (15:10)
--- NOTE | 2016-08-30 16:08 | HHI.PR ---
Subjective Remarks Patient reports that he is feeling OK. Still has occasional cough. No hematemesis. No fevers. Objective Vitals Vital Signs Date Time Temp Pulse Resp B/P Pulse Ox O2 Delivery O2 Flow Rate FiO2 08/30/16 12:15 100 08/30/16 12:00 98.3 96 16 109/69 100 08/30/16 08:00 98.5 96 16 155/80 99 08/30/16 04:00 98.5 95 16 148/87 98 08/29/16 23:49 98.3 86 16 162/95 99 08/29/16 20:08 98.6 93 16 159/89 100 08/29/16 20:00 Room Air I/O 08/29/16 08/29/16 08/29/16 08/30/16 08/30/16 08/30/16 07:00 15:00 23:00 07:00 15:00 23:00 Intake Total 480 ml 1622 ml 1920 ml 1749 ml 1200 ml Output Total 300 ml 1400 ml 475 ml Balance 180 ml 1622 ml 520 ml 1274 ml 1200 ml Intake Oral 480 ml 960 ml 1920 ml 120 ml 1200 ml IV Total 662 ml 1629 ml Output Urine Total 300 ml 1400 ml 475 ml # Voids 3 4 # Bowel Movements 1 1 0 0 2 Result Diagram: 08/30/16 1123 08/30/16 1123 Objective Remarks GENERAL: Patient is in no apparent distress. CARDIOVASCULAR: Regular rate and rhythm without murmurs, gallops, or rubs. RESPIRATORY: Clear to auscultation. Breath sounds equal bilaterally. No wheezes , rales, or rhonchi. GASTROINTESTINAL: Abdomen soft, non-tender, nondistended. Normal active bowel sounds MUSCULOSKELETAL: Extremities without clubbing, cyanosis, or edema. NEURO: Alert & Oriented x4 to person, place, time, situation. Moves all ext x4 A/P Problem List: (1) Healthcare associated bacterial pneumonia ICD Code: J15.9 Status: Acute (2) GI bleed ICD Code: K92.2 Status: Acute (3) Pneumonia ICD Code: J18.9 Status: Acute (4) Chest pain ICD Code: R07.9 Status: Acute (5) DM (diabetes mellitus) ICD Code: E11.9 Status: Acute (6) Leucopenia ICD Code: D72.819 Status: Acute Assessment and Plan 45-year-old male with medical history significant for DM, renal transplant on immunosuppressives, CML, CVA, PUD who presented with cough and vomiting Influenza A with possible superimposed Healthcare associated bacterial pneumonia : Failed outpatient therapy with amoxicillin. Chest x-ray and chest CT with inferior right upper lobe infiltrate. - Infectious disease following, S/P Zosyn and Zyvox. Currently on Levaquin and Tamiflu. - Per ID patient is to be discharged on Levaquin and Tamiflu. CM to assist patient with getting medications. Leukopenia: Slightly improved. Monitor CBC in AM. Hematemesis: ?possible Cecile morrison tear from retching vs esophagitis, resolved - GI following. Continue PPI. 40mg BID for 8 weeks, then can decrease to 40mg PO daily - Carafate 1g QAC for 2 weeks, then can decrease to 1g BID - continue magic mouthwash - Hemoglobin currently stable, monitor. Atypical chest pain: resolved. Possibly secondary to pneumonia and coughing vs hematemesis vs HTN as listed. EKG reviewed with LVH, nonspecific ST changes. ACS ruled out per protocol. Hold aspirin with bleeding as above. Continue statin. Oral and intravenous narcotics as needed for pain. Acute kidney injury on chronic kidney disease status post renal transplant: Likely secondary to decreased oral intake and vomiting. Creatinine improving, reportedly baseline since transplant is around 1.8, no recent labs for comparison. Renal indices improving and appreciate input from nephrology currently on IV fluid hydration. Continue Prograf and CellCept. Will need outpatient follow up. Diabetes mellitus: Labile blood glucose despite patient's on his insulin pump. ACHS coverage and continue insulin sliding scale to medium. Patient advised to stick to ADA diet Accelerated hypertension: Resolved and Continue home carvedilol. Clonidine and hydralazine as needed. Other chronic medical conditions include CML, depression: Stable at this time and continue home medications as indicated DVT prophylaxis: SCDs. Avoid chemical prophylaxis due to recent GI bleeding. 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
--- NOTE | 2016-08-30 19:44 | HHI.IDPN ---
Subjective Subjective Remarks is a 45 y/o AAM with PMHx significant for DM2 uncontrolled, renal transplant ( donor) in 2015 who is on immune suppressants (cellcept and Prograf). ID following for Influenza pneumonia, possible secondary bacterial pneumonia. Overnight events reviewed. No fever No rash No diarrhea Antibiotics Zosyn IV Tamiflu Lines Line sites with no e/o infection. Past Medical History reviewed Allergies: Coded Allergies: Bethanechol (Verified Allergy, Mild, DIAPHORESIS, 08/26/16) Contrast Media (Verified Allergy, Mild, ITCHING AND COUGHING, 08/26/16) Objective . Vital Signs Date Time Temp Pulse Resp B/P Pulse Ox O2 Delivery O2 Flow Rate FiO2 08/30/16 16:00 98.3 97 16 144/85 100 08/30/16 12:15 100 08/30/16 12:00 98.3 96 16 109/69 100 08/30/16 08:00 98.5 96 16 155/80 99 08/30/16 04:00 98.5 95 16 148/87 98 08/29/16 23:49 98.3 86 16 162/95 99 08/29/16 20:08 98.6 93 16 159/89 100 08/29/16 20:00 Room Air 08/29/16 08/29/16 08/30/16 15:00 23:00 07:00 Intake Total 1622 ml 1920 ml 1749 ml Output Total 1400 ml 475 ml Balance 1622 ml 520 ml 1274 ml Intake Oral 960 ml 1920 ml 120 ml IV Total 662 ml 1629 ml Output Urine Total 1400 ml 475 ml # Voids 3 # Bowel Movements 1 0 0 . Laboratory Tests Test 08/29/16 08/30/16 06:44 11:23 White Blood Count 1.9 TH/MM3 2.0 TH/MM3 Red Blood Count 4.77 MIL/MM3 4.66 MIL/MM3 Hemoglobin 12.6 GM/DL 12.7 GM/DL Hematocrit 39.5 % 38.5 % Mean Corpuscular Volume 82.9 FL 82.6 FL Mean Corpuscular Hemoglobin 26.4 PG 27.2 PG Mean Corpuscular Hemoglobin 31.9 % 32.9 % Concent Red Cell Distribution Width 13.3 % 13.5 % Platelet Count 194 TH/MM3 241 TH/MM3 Mean Platelet Volume 8.9 FL 8.8 FL Neutrophils (%) (Auto) 50.7 % 47.9 % Lymphocytes (%) (Auto) 24.0 % 27.9 % Monocytes (%) (Auto) 21.1 % 18.2 % Eosinophils (%) (Auto) 3.2 % 4.9 % Basophils (%) (Auto) 1.0 % 1.1 % Neutrophils # (Auto) 0.9 TH/MM3 1.0 TH/MM3 Lymphocytes # (Auto) 0.4 TH/MM3 0.6 TH/MM3 Monocytes # (Auto) 0.4 TH/MM3 0.4 TH/MM3 Eosinophils # (Auto) 0.1 TH/MM3 0.1 TH/MM3 Basophils # (Auto) 0.0 TH/MM3 0.0 TH/MM3 CBC Comment AUTO DIFF AUTO DIFF Differential Total Cells 100 100 Counted Neutrophils % (Manual) 50 % 49 % Lymphocytes % 25 % 25 % Monocytes % 22 % 18 % Eosinophils % 3 % 3 % Neutrophils # (Manual) 1.0 TH/MM3 1.1 TH/MM3 Differential Comment FINAL DIFF FINAL DIFF MANUAL MANUAL Platelet Estimate NORMAL NORMAL Platelet Morphology Comment NORMAL NORMAL Jocelynn Cells 1+ Band Neutrophils % 4 % Basophils % 1 % Keratocytes OCC Laboratory Tests Test 08/29/16 08/30/16 06:44 11:23 Sodium Level 136 MEQ/L 136 MEQ/L Potassium Level 3.7 MEQ/L 4.1 MEQ/L Chloride Level 100 MEQ/L 102 MEQ/L Carbon Dioxide Level 24.7 MEQ/L 22.5 MEQ/L Anion Gap 11 MEQ/L 12 MEQ/L Blood Urea Nitrogen 12 MG/DL 13 MG/DL Creatinine 1.91 MG/DL 1.92 MG/DL Estimat Glomerular Filtration 47 ML/MIN 46 ML/MIN Rate Random Glucose 394 MG/DL 295 MG/DL Hemoglobin A1c 10.4 % Calcium Level 9.0 MG/DL 9.1 MG/DL Microbiology Date/Time Procedure Status Source Growth 08/28/16 04:00 Gram Stain - Final Complete Sputum Expectorated Sputum 08/28/16 04:00 Sputum Culture - Final Complete Sputum Expectorated Sputum HEAVY GROWTH NORMAL RESPIRATORY JACKIE Imaging Last Impressions Chest X-Ray 08/26/16 1100 Signed Impressions: Service Date/Time: Friday, August 26, 2016 11:42 - CONCLUSION: Wedge shaped parenchymal opacity in the superior aspect of the right middle lobe. The wedge-shaped appearance favors subsegmental atelectasis or parenchymal scar. Consolidation is felt less likely. Hernando Leblanc MD Chest CT 08/26/16 0000 Signed Impressions: Service Date/Time: Friday, August 26, 2016 13:32 - CONCLUSION: 1. The chest x-ray finding represents mild groundglass attenuation as well as a linear opacity with an appearance favoring an airspace process with associated atelectasis. It is located in the inferior aspect of the right upper lobe. Given the history of cough and fever this very likely represents an infectious process. Suggest followup imaging to confirm resolution following appropriate therapy. 2. Nonacute findings include mild coronary artery calcification and small hiatal hernia. Hernando Leblanc MD Physical Exam GENERAL: This is a well-nourished, well-developed patient, in no apparent distress. SKIN: No rashes, ecchymoses or lesions. Cool and dry. HEAD: Atraumatic. Normocephalic. No temporal or scalp tenderness. EYES: Pupils equal round and reactive. Extraocular motions intact. No scleral icterus. No injection or drainage. ENT: Nose without bleeding, purulent drainage or septal hematoma. Throat without erythema, tonsillar hypertrophy or exudate. Uvula midline. Airway patent. NECK: Trachea midline. Supple, nontender, no meningeal signs. CARDIOVASCULAR: HS audible. RESPIRATORY: Clear to auscultation. Breath sounds equal bilaterally. No wheezes , rales, or rhonchi. GASTROINTESTINAL: Abdomen soft, non-tender, nondistended. MUSCULOSKELETAL: Extremities without clubbing, cyanosis, or edema. No joint tenderness, effusion, or edema noted. No calf tenderness. Negative Homans sign bilaterally. NEUROLOGICAL: Awake and alert. Grossly non focal Psych: cooperative IV line sites with no e/o infection. Assessment & Plan Remarks Pneumonia in a patient s/p Kidney transplant 2015. Influenza A positive Pneumonia Possible Secondary Bacterial infection. Immune compromised on Cellcept and Prograf. New worsening renal function. Outpt plan for ? renal biopsy per renal notes. DM2 uncontrolled Recs: Continue Levaquin oral Continue Tamiflu. WBC improving but still low. Repeat CBC in am. If leucopenia improves and tamiflu arranged by Industrial Health Engineer with [facility] pt home. Scripts for Levaquin and Tamiflu in chart for telephonic case manager. Sputum cultures Follow cultures Follow clinically. d/w pt and Debbie Swartz MD Aug 30, 2016 19:44
[2016-08-30] MEDS: MONTELUKAST SODIUM 10 MG TAB PO SCH (21:50)
[2016-08-30] MEDS: ATORVASTATIN 20 MG TAB PO SCH (21:51)
[2016-08-30] MEDS: IMATINIB MESYLATE 100 MG TAB PO SCH (21:53)
[2016-08-31] VITALS: BP 177/89; PULSE 91; RESP 16; TEMP 98.4; O2SAT 98
[2016-08-31] MEDS: SODIUM CHLOR 0.9% 1000 ML INJ 1,000 ML IV SCH (02:45)
[2016-08-31 04:00] VITALS: BP 196/99; PULSE 86; RESP 18; TEMP 98.3; O2SAT 99
[2016-08-31 05:57] LABS: EOSINOPHIL # 0.1 TH/MM3 (0-0.4); EOSINOPHIL % 5.7 % (0.0-4.0); HEMATOCRIT 35.6 % (39.0-51.0); LYMPH % 25.1 % (9.0-44.0); LYMPHOCYTE # 0.6 TH/MM3 (1.0-4.8); MEAN CELL VOLUME 81.8 FL (80.0-100.0); MEAN CORPUSCULAR HEMOGLOBIN 26.7 PG (27.0-34.0); MEAN CORPUSCULAR HGB CONC 32.6 % (32.0-36.0); MONO % 21.1 % (0.0-8.0); NEUT % 47.1 % (16.0-70.0); PLATELET COUNT 213 TH/MM3 (150-450); RED BLOOD COUNT 4.35 MIL/MM3 (4.50-5.90); RED CELL DISTRIBUTION WIDTH 13.6 % (11.6-17.2); WHITE BLOOD COUNT 2.2 TH/MM3 (4.0-11.0)
[2016-08-31 05:58] LABS: HEMO FLAGS AUTO DIFF
[2016-08-31 06:13] VITALS: BP 170/89
[2016-08-31 06:15] LABS: BICARBONATE 22.1 MEQ/L (21.0-32.0)
[2016-08-31] MEDS: INSULIN ASPART SUPPLEMENTAL SCALE SQ SCH (06:19)
[2016-08-31] MEDS: PANTOPRAZOLE SODIUM 40 MG VIAL IV PUSH SCH (06:19)
[2016-08-31 07:04] LABS: PLATELET ESTIMATE SMEAR NORMAL (NORMAL); PLATELET MORPHOLOGY NORMAL (NORMAL); SCAN/DIFF AUTO DIFF CONFIRMED
[2016-08-31 07:38] VITALS: BP 186/97; PULSE 85; RESP 18; TEMP 98.2; O2SAT 100
[2016-08-31] MEDS: SUCRALFATE 1 GM/10 ML CUP PO SCH (09:10)
[2016-08-31] MEDS: TACROLIMUS 1 MG CAP PO SCH (09:10)
[2016-08-31] MEDS: NYSTATIN SUSP 500,000 U/5 ML CUP SWISH-SWAL SCH (09:10)
[2016-08-31] MEDS: SODIUM CHLORIDE 0.9% FLUSH 5 ML FLUSH IVF SCH (09:11)
[2016-08-31] MEDS: MYCOPHENOLATE MOFETIL 500 MG TAB PO SCH (09:11)
[2016-08-31] MEDS: LACTOBACILLUS ACIDOPHILUS TAB PO SCH (09:11)
[2016-08-31] MEDS: FAMOTIDINE 20 MG TAB PO SCH (09:11)
[2016-08-31] MEDS: SERTRALINE HCL 50 MG TAB PO SCH (09:11)
[2016-08-31] MEDS: INSULIN ASPART 1,000 UNITS/10 ML VIAL SQ SCH (09:11)
[2016-08-31] MEDS: CARVEDILOL 6.25 MG TAB PO SCH (09:11)
[2016-08-31] MEDS: NYSTAT/DIPHENHY/LIDO MOUTHWASH (Adult) 120ML SWISH-SWAL SCH (09:12)
[2016-08-31 09:19] VITALS: PULSE 82
--- NOTE | 2016-08-31 11:46 | HHI.DS ---
Discharge Summary Admission Date Aug 26, 2016 at 15:23 Discharge Date: Aug 31, 2016 Admitting Diagnosis pneumonia, MARIO, GI bleed (1) Healthcare associated bacterial pneumonia ICD Code: J15.9 (2) GI bleed ICD Code: K92.2 (3) Pneumonia ICD Code: J18.9 (4) Chest pain ICD Code: R07.9 (5) DM (diabetes mellitus) ICD Code: E11.9 (6) Leucopenia ICD Code: D72.819 Procedures None Brief History - From Admission 45-year-old male with an extensive past medical history including DM, renal transplant on immunosuppressives, CML, CVA, PUD who presented with cough and vomiting. The patient states that 5 days ago he began having sinus congestion, drainage, and cough. His cough is productive with brown sputum. He denies any shortness of breath. He has been having fevers, yesterday temperature 101.5 at home. He denies any fevers today. He states that for the past few days she's been having hiccups and nausea, decreased intake. He states today he had one episode of vomiting 1, reports it was grossly red. He has a history of gastric ulcers, follow with Dr. Perez, last EGD last summer, reportedly ulcers had healed, weaning off of sucralfate. He's also been having some intermittent left-sided chest pain. No history of CAD. He does take an aspirin daily. CBC/BMP: 08/31/16 0523 08/31/16 0523 Significant Findings Laboratory Tests Test 08/29/16 08/30/16 08/31/16 06:44 11:23 05:23 White Blood Count 1.9 TH/MM3 2.0 TH/MM3 2.2 TH/MM3 (4.0-11.0) (4.0-11.0) (4.0-11.0) Hemoglobin 12.6 GM/DL 12.7 GM/DL 11.6 GM/DL (13.0-17.0) (13.0-17.0) (13.0-17.0) Mean Corpuscular Hemoglobin 26.4 PG 26.7 PG (27.0-34.0) (27.0-34.0) Mean Corpuscular Hemoglobin 31.9 % Concent (32.0-36.0) Monocytes (%) (Auto) 21.1 % 18.2 % 21.1 % (0.0-8.0) (0.0-8.0) (0.0-8.0) Neutrophils # (Auto) 0.9 TH/MM3 1.0 TH/MM3 1.0 TH/MM3 (1.8-7.7) (1.8-7.7) (1.8-7.7) Lymphocytes # (Auto) 0.4 TH/MM3 0.6 TH/MM3 0.6 TH/MM3 (1.0-4.8) (1.0-4.8) (1.0-4.8) Monocytes % 22 % (0-8) 18 % (0-8) Neutrophils # (Manual) 1.0 TH/MM3 1.1 TH/MM3 (1.8-7.7) (1.8-7.7) [place] Cells 1+ (NORMAL) Creatinine 1.91 MG/DL 1.92 MG/DL 1.85 MG/DL (0.60-1.30) (0.60-1.30) (0.60-1.30) Estimat Glomerular Filtration 47 ML/MIN (>89) 46 ML/MIN (>89) 48 ML/MIN (>89) Rate Random Glucose 394 MG/DL 295 MG/DL 345 MG/DL (74-106) (74-106) (74-106) Hemoglobin A1c 10.4 % (4.3-6.0) Hematocrit 38.5 % 35.6 % (39.0-51.0) (39.0-51.0) Eosinophils (%) (Auto) 4.9 % (0.0-4.0) 5.7 % (0.0-4.0) Red Blood Count 4.35 MIL/MM3 (4.50-5.90) Imaging Last Impressions Chest X-Ray 08/30/16 0000 Signed Impressions: Service Date/Time: Tuesday, August 30, 2016 12:31 - CONCLUSION: No acute disease. Hernando Pillai MD Chest CT 08/26/16 0000 Signed Impressions: Service Date/Time: Friday, August 26, 2016 13:32 - CONCLUSION: 1. The chest x-ray finding represents mild groundglass attenuation as well as a linear opacity with an appearance favoring an airspace process with associated atelectasis. It is located in the inferior aspect of the right upper lobe. Given the history of cough and fever this very likely represents an infectious process. Suggest followup imaging to confirm resolution following appropriate therapy. 2. Nonacute findings include mild coronary artery calcification and small hiatal hernia. Hernando Leblanc MD PE at Discharge GENERAL: Patient is in no apparent distress. CARDIOVASCULAR: Regular rate and rhythm without murmurs, gallops, or rubs. RESPIRATORY: Clear to auscultation. Breath sounds equal bilaterally. No wheezes , rales, or rhonchi. GASTROINTESTINAL: Abdomen soft, non-tender, nondistended. Normal active bowel sounds MUSCULOSKELETAL: Extremities without clubbing, cyanosis, or edema. NEURO: Alert & Oriented x4 to person, place, time, situation. Moves all ext x4 Pt update on day of discharge Patient reports that he is feeling well. Mild cough. No shortness of breath. Anxious to be discharged home. Hospital Course 45-year-old male with medical history significant for DM, renal transplant on immunosuppressives, CML, CVA, PUD who presented with cough and vomiting. Evaluation and treatment course detailed below. Influenza A with possible superimposed Healthcare associated bacterial pneumonia : Failed outpatient therapy with amoxicillin. Chest x-ray and chest CT with inferior right upper lobe infiltrate. - Infectious disease followed the patient, S/P Zosyn and Zyvox. He was switch and discharge on Levaquin and Tamiflu. - CM to assist patient with getting medications. Leukopenia: Slowly improving. Patient to have a repeat CBC in 3-5 days and follow-up with PCP. Hematemesis: ?possible Cecile morrison tear from retching vs esophagitis, resolved - GI followed the patient. He is to continue on PPI and Carafate. Atypical chest pain: resolved. Possibly secondary to pneumonia and coughing vs hematemesis vs HTN as listed. EKG reviewed with LVH, nonspecific ST changes. ACS ruled out per protocol. Resume aspirin. Continue statin. Acute kidney injury on chronic kidney disease status post renal transplant: Likely secondary to decreased oral intake and vomiting. Creatinine improving, reportedly baseline since transplant is around 1.8, no recent labs for comparison. Renal indices improving and appreciate input from nephrology. Continue Prograf and CellCept. Will need outpatient follow up. Diabetes mellitus: Labile blood glucose despite patient's on his insulin pump. ACHS coverage and continue insulin sliding scale to medium. Patient advised to stick to ADA diet Accelerated hypertension: Resolved and Continue home carvedilol. Other chronic medical conditions include CML, depression: Stable at this time and continue home medications as indicated Pt Condition on Discharge: Good Discharge Disposition: Discharge Home Discharge Time: <= 30 minutes Discharge Instructions DIET: Follow Instructions for: Diabetic Diet Activities you can perform: Regular-No Restrictions Follow up Referrals: PCP Follow-up - 1 Week New Orders: CBC WITH DIFF - 3-5 Days New Medications: Amlodipine (Norvasc) 10 Mg Tab 10 MG PO DAILY #30 TAB Levofloxacin (Levaquin) 500 Mg Tab 500 MG PO DAILY@11 Secondary bacterial pneumonia Days 5 Ref 0 TAB Oseltamivir (Tamiflu) 30 Mg Cap 30 MG PO BID Influenza A Days 2 Ref 0 CAP Continued Medications: Aspirin (Aspirin) 81 Mg Tabdr 81 MG PO DAILY TAB Atorvastatin (Lipitor) 20 Mg Tab 20 MG PO HS Cholesterol Management #30 Ref 0 TAB Azithromycin (Azithromycin) 250 Mg Tab 250 MG PO DAILY Infection Ref 0 TAB Carvedilol (Coreg) 6.25 Mg Tab 6.25 MG PO BID #60 Ref 0 TAB Imatinib Mesylate (Gleevec) 100 Mg Tab 100 MG PO HS Insulin Aspart Inj (Novolog Inj) 1,000 Unit/10 Ml Vial 0 SQ DIRECTED Sliding Scale as directed. Blood Sugar Management #10 Ref 0 ML Montelukast (Singulair) 10 Mg Tab 10 MG PO HS #30 Ref 0 TAB Mycophenolate (Cellcept) 500 Mg Tab 1000 MG PO BID Immunosuppression #120 Ref 0 TAB Pantoprazole (Protonix) 40 Mg Tab 40 MG PO DAILY Ulcer Prevention #30 Ref 0 TAB Ranitidine (Zantac) 300 Mg Tab 300 MG PO BID Ref 0 TAB Sertraline (Sertraline) 50 Mg Tab 50 MG PO DAILY #30 Ref 0 TAB Sucralfate (Carafate) 1 Gm Tab 1 GM PO DAILY On empty stomach Ulcer Prevention #120 Ref 0 TAB Tacrolimus (Prograf) 1 Mg Cap 3 MG PO BID Prevent Transplant Reject #60 Ref 0 CAP Discontinued Medications: Amoxicillin (Amoxicillin) 500 Mg Cap 500 MG PO TID Infection Days 10 Ref 0 Alfredo Cordova MD Aug 31, 2016 11:46
[2016-08-31] MEDS ORDERED: AMLO10 PO (11:49)
[2016-08-31] MEDS: LEVOFLOXACIN 500 MG TAB PO SCH (11:52)
[2016-08-31] MEDS: OSELTAMIVIR PHOSPHATE 30 MG CAP PO SCH (12:30)
[2016-08-31 12:37] VITALS: BP 154/87; PULSE 77
== END 2016-08-31 13:30 | disposition home or self-care (01) | DRG 194 ==
LOC: NEPA 10:30 → NEDA 15:23 → N04B 21:22
PROVIDERS: ADMIT Family Medicine; ATTEND Family Medicine
DX: J10.08 Influenza due to other identified influenza virus with other specified pneumonia (principal); Z94.0 Kidney transplant status; N17.9 Acute kidney failure, unspecified; K92.0 Hematemesis; I13.0 Hypertensive heart and chronic kidney disease with heart failure and stage 1 through stage 4 chronic kidney disease, or unspecified chronic kidney disease; C92.10 Chronic myeloid leukemia, BCR/ABL-positive, not having achieved remission; I69.354 Hemiplegia and hemiparesis following cerebral infarction affecting left non-dominant side; J15.9 Unspecified bacterial pneumonia; I50.9 Heart failure, unspecified; E86.9 Volume depletion, unspecified; E10.21 Type 1 diabetes mellitus with diabetic nephropathy; E10.22 Type 1 diabetes mellitus with diabetic chronic kidney disease; N18.9 Chronic kidney disease, unspecified; E10.43 Type 1 diabetes mellitus with diabetic autonomic (poly)neuropathy; E10.65 Type 1 diabetes mellitus with hyperglycemia; E10.319 Type 1 diabetes mellitus with unspecified diabetic retinopathy without macular edema; R06.6 Hiccough; R13.10 Dysphagia, unspecified; K21.0 Gastro-esophageal reflux disease with esophagitis; E78.5 Hyperlipidemia, unspecified; M81.0 Age-related osteoporosis without current pathological fracture; F12.90 Cannabis use, unspecified, uncomplicated; F32.9 Major depressive disorder, single episode, unspecified; Y95 Nosocomial condition; Z79.4 Long term (current) use of insulin; Z82.49 Family history of ischemic heart disease and other diseases of the circulatory system; Z86.718 Personal history of other venous thrombosis and embolism; Z87.891 Personal history of nicotine dependence; Z89.411 Acquired absence of right great toe; Z89.412 Acquired absence of left great toe; Z91.041 Radiographic dye allergy status; Z96.41 Presence of insulin pump (external) (internal)
CPT/HCPCS: 71010; 71020; 71250; 80048; 80053; 80076; 80197; 81001; 82550; 82552; 82805; 82948; 83036; 83605; 83690; 83735; 84100; 84484; 85007; 85025; 85027; 85610; 85730; 86738; 87040; 87070; 87205; 87449; 87804; 93005; 96361; 96365; 96367; 96375; 96376; C9113; J0360; J0456; J0696; J1815; J2020; J2270; J2405; J2543; J7030; J7050; J7507; J7517

== ENCOUNTER 2016-09-03 11:36 | Emergency (ER) | payer MEDICARE, OTHER ==
[~2016-09-03] VITALS: Ht 185.4 cm; Wt 85.0 kg
[~2016-09-03 11:36] MED LIST changes: +AMLO10 PO; -AMLO5TAB96 PO; +ASPI1TAB69 PO; -ATOR20TA42 PO; +AZIT250T3 PO; -BACT2OIN TOP; +CARA1TAB6 PO; +CARV6.25 PO; -CINA30 PO; -CLON.1 PO; -DIALTAB2 PO; -ELIP667T PO; -FAMO40 PO; +GLEE100T PO; -HUMSS SQ; -LABE200 PO; -LABE200T2 PO; +LEVA500T PO; +LIPI20TA PO; +MONT10TA2 PO; +MYCO500 PO; -NITR.4 SL; +NOVOLOGP2 IMPLANPUMP; +OSEL30 PO; +SERT-132 PO; -SEVEL800 PO; +TACR1 PO; +ZANT300T PO; -[UNRECOGNIZED DRUG - CODE] SQ
[2016-09-03 11:38] VITALS: BP 130/74; PULSE 88; RESP 16; TEMP 98.3; O2SAT 99
--- NOTE | 2016-09-03 11:57 | PD ---
HPI Chief Complaint: Edema Time Seen by Provider: 11:51 Travel History International Travel<30 days: No Contact w/Intl Traveler<30days: No Traveled to known affect area: No History of Present Illness HPI 45-year-old male with history of renal transplant, previously on dialysis, dialysis shunt on the left arm, multiple medical issues, previous DVT, had been admitted to the hospital for pneumonia and had aspirin stopped for a few days during hospitalization, now reports several days of left antecubital region pain and swelling. He denies any chest pains, shortness of breath, or any other symptoms. Modifying Factors: None Associated Signs & Symptoms: Left arm pain Risk Factors: History of DVTs PFSH Past Medical History Hx Anticoagulant Therapy: Yes Arthritis: No Asthma: No Autoimmune Disease: No Blood Disorders: No Anxiety: No Depression: No Heart Rhythm Problems: Yes (CARDIOVERSION (2009)) Cancer: Yes (LEUKEMIA) Cardiovascular Problems: Yes High Cholesterol: Yes (ON STATIN) Chemotherapy: Yes (ORAL ) Chest Pain: No Congestive Heart Failure: Yes COPD: No Cerebrovascular Accident: Yes (X3, SLIGHTLY WEAK ON LEFT SIDE) Diabetes: Yes Dialysis: Yes (MON-FRI (OFF SAT AND SUN)) Diminished Hearing: No Endocrine: Yes GERD: Yes Glaucoma: No Genitourinary: Yes Hepatitis: No Hiatal Hernia: No Hypertension: Yes Immune Disorder: No Implanted Vascular Access Dvce: Yes ( LEFT AVF) Kidney Stones: No Musculoskeletal: Yes (LEFT KNEE ARTHROPLASTY (CYST)) Neurologic: Yes (MULTIPLE STROKES, RESIDUAL LEFTSIDED WEAKNESS) Psychiatric: No Reproductive: Yes (PENILE IMPLANT) Respiratory: Yes (INTUBATED 2009, HYPERGLYCEMIA) Migraines: Yes Myocardial Infarction: No Radiation Therapy: No Renal Failure: Yes (LEFT FOREARM AV SHUNT) Seizures: No Sleep Apnea: No Thyroid Disease: No Ulcer: Yes PNEUMOCCOCAL Vaccine (Year): 2 Past Surgical History Abdominal Surgery: Yes (5X EGD'S FOR ESOPHAGIAL ULCERS) AICD: No Arteriovenous Shunt: Yes (LEFT ARM WITH STENTS) Cardiac Surgery: Yes (LEFT A/V FISTULA, CARDIOVERSION (2009)) Ear Surgery: No Endocrine Surgery: No Eye Surgery: Yes (CATARACT SURGERY WITH IMPLANTS) Genitourinary Surgery: Yes (PENILE IMPLANT/ left kidney transplant) Gynecologic Surgery: No Insulin Pump: Yes Joint Replacement: No Oral Surgery: No Pacemaker: No Thoracic Surgery: No Other Surgery: Yes (JACK GREAT TOES REMOVED/ left avf fistula) Social History Alcohol Use: No Tobacco Use: No Substance Use: No Allergies-Medications (Allergen,Severity, Reaction): Coded Allergies: Bethanechol (Verified Allergy, Mild, DIAPHORESIS, 09/03/16) Contrast Media (Verified Allergy, Mild, ITCHING AND COUGHING, 09/03/16) Reported Meds & Prescriptions Reported Meds & Active Scripts Active Norvasc (Amlodipine Besylate) 10 Mg Tab 10 Mg PO DAILY Tamiflu (Oseltamivir Phosphate) 30 Mg Cap 30 Mg PO BID 2 Days Levaquin (Levofloxacin) 500 Mg Tab 500 Mg PO DAILY@11 5 Days Reported Aspirin 81 Mg Tabdr 81 Mg PO DAILY Azithromycin 250 Mg Tab 250 Mg PO HS Sertraline (Sertraline HCl) 50 Mg Tab 50 Mg PO DAILY Novolog Inj (Insulin Aspart) 1,000 Unit/10 Ml Vial Unknown Dose IMPLANPUMP DIRECTED Lipitor (Atorvastatin Calcium) 20 Mg Tab 20 Mg PO HS Singulair (Montelukast Sodium) 10 Mg Tab 10 Mg PO HS Gleevec (Imatinib Mesylate) 100 Mg Tab 100 Mg PO HS Coreg (Carvedilol) 6.25 Mg Tab 6.25 Mg PO BID Cellcept (Mycophenolate Mofetil) 500 Mg Tab 1,000 Mg PO BID Prograf (Tacrolimus) 1 Mg Cap 3 Mg PO BID Zantac (Ranitidine HCl) 300 Mg Tab 300 Mg PO BID Carafate (Sucralfate) 1 Gm Tab 1 Gm PO HS On empty stomach Review of Systems Except as stated in HPI: all other systems reviewed are Neg Physical Exam Narrative GENERAL: Well-nourished, well-developed middle age -[place] male patient in no acute distress. SKIN: Warm and dry. HEAD: Normocephalic. EYES: No scleral icterus. No injection or drainage. NECK: Supple, trachea midline. CARDIOVASCULAR: Regular rate and rhythm without murmurs, gallops, or rubs. RESPIRATORY: Breath sounds equal bilaterally. No accessory muscle use. GASTROINTESTINAL: Abdomen soft, non-tender, nondistended. MUSCULOSKELETAL: No cyanosis, or edema. BACK: Nontender without obvious deformity. No CVA tenderness. Left arm: There is tenderness to palpation of the left antecubital region medially at around the biceps tendon insertion. No signs of erythema, neurovascularly intact, no signs of fluctuance. Data Data Last Documented VS Vital Signs Date Time Temp Pulse Resp B/P Pulse Ox O2 Delivery O2 Flow Rate FiO2 09/03/16 11:38 98.3 88 16 130/74 99 Room Air Orders Us Arm Venous Doppler (09/03/16 11:51) MDM Medical Decision Making Medical Screen Exam Complete: Yes Emergency Medical Condition: Yes Medical Record Reviewed: Yes Differential Diagnosis Pain in the left armtendinitis versus DVT versus abscess Narrative Course Ultrasound did not reveal any signs of DVT. There is a thrombus in the superficial vein. Patient is already on aspirin. Considering recent history of gastric bleeding, I would hold off on giving him any and states or further aspirin. Anticoagulation in this patient considering recent GI bleeding episode would also be risky. I have discussed the risks with the patient and have recommended continued aspirin as previously prescribed. Patient states understanding of the risk and is agreeable to this plan. At this point, my plan would be to get symptomatic treatment and follow-up to primary care physician. Return for any worsening in symptoms as needed. The plan has been discussed with him and he states understanding. Diagnosis Primary Impression: Superficial venous thrombosis of arm Med/Other Pt SpecificInfo: Prescription(s) given Scripts Tramadol 50 Mg Tab50 Mg PO Q6H PRN (PAIN) #12 TAB Ref 0 Prov:Leonard Altamirano MD 09/03/16 Disposition: 01 DISCHARGE HOME Condition: Stable Leonard Altamirano MD Sep 03, 2016 11:57
--- NOTE | 2016-09-03 14:42 | RADRPT ---
EXAM DATE/TIME: 09/03/2016 13:47 [facility] COMPARISON: No previous studies available for comparison. INDICATIONS : Left arm swelling. MEDICAL HISTORY : Congestive heart failure. Hypercholesterolemia. Leukemia. Multiple strokes. Residual left sided weakn ess. Migraines. Pneumonia. Esophagial ulcers. Hemoptisis. GERD. ESRD. Diabetes. HTN. Anticoagulant t herapy. SURGICAL HISTORY : Cataract surgery with lens implants. Left AV fistula. Cardioversion. EGDs x5 for esophagial ulcers. P enile implant. Left kidney transplant. Left knee arthroplasty. Bilateral great toe amputation. Right small toe removed. Chemotherapy. ENCOUNTER: Initial ACUITY: 3 days PAIN SCORE: 7/10 LOCATION: Left arm. FINDINGS: There is spontaneous flow documented in the brachial, basilic, axillary, and subclavian veins. The v essels are compressible and augmentation response is documented. No filling defects are seen. The f low is phasic with respiration. Direction of flow in the jugular vein is caudal. There is evidence o f occlusive thrombus in the cephalic vein in the proximal forearm . The distal cephalic vein appears to be patent. There is evidence of a previous AV fistula. CONCLUSION: 1. No evidence of DVT. 2. There is superficial thrombus in the left cephalic vein along the proximal forearm. Curt Collado MD on September 03, 2016 at 14:38 Board Certified Radiologist. This report was verified electronically.
[2016-09-03] MEDS ORDERED: TRAM50TA PO (14:50)
== END 2016-09-03 15:45 | disposition home or self-care (01) ==
LOC: NEPA 11:36
DX: I82.812 Embolism and thrombosis of superficial veins of left lower extremity (principal); I10 Essential (primary) hypertension; E11.9 Type 2 diabetes mellitus without complications; E78.00 Pure hypercholesterolemia, unspecified; I50.9 Heart failure, unspecified; Z79.01 Long term (current) use of anticoagulants; Z86.718 Personal history of other venous thrombosis and embolism; Z94.0 Kidney transplant status; Z99.2 Dependence on renal dialysis
CPT/HCPCS: 93971

== ENCOUNTER 2016-12-01 10:59 | Day surgery (SDC) | payer OTHER ==
[~2016-12-01 10:59] MED LIST changes: -PROT40TA PO; +TRAM50TA PO
[2016-12-01] MEDS ORDERED: POVIDONE IODINE 5% (ANTISEPSIS KIT) 4 APPLICATIONS EACH NARE SCH (11:30)
[2016-12-01] MEDS ORDERED: MUPIROCIN 2% OINT 1 APPLIC/GM SYR NASAL SCH (11:30)
[2016-12-01] MEDS ORDERED: CHLORHEXIDINE GLUCONATE 2 % 1 PACK (2 CLOTHS) TOPICAL SCH (11:30)
[2016-12-01] MEDS ORDERED: ceFAZolin 2 GM PREMIX 50 ML IV SCH (11:30)
[2016-12-01] MEDS ORDERED: SERT-129 PO (12:15)
[2016-12-01] MEDS ORDERED: ZITH250T PO (12:15)
[2016-12-01] MEDS ORDERED: CALC0.25 PO (12:15)
[2016-12-01] MEDS ORDERED: D-20TAB3 PO (12:15)
[2016-12-01] MEDS ORDERED: ERGO1CAP30 PO (12:15)
[2016-12-01] MEDS ORDERED: ROBI0.2I3 SQ (12:15)
[2016-12-01] MEDS ORDERED: CARV12.5 PO (12:15)
[2016-12-01] MEDS ORDERED: MULT-135 PO (12:15)
[2016-12-01] MEDS ORDERED: AMLO5TAB2 PO (12:15)
[2016-12-01] MEDS ORDERED: MIDAZOLAM HCL 5 MG/5 ML VIAL ONE (12:28)
--- NOTE | 2016-12-01 13:49 | MA ---
cc: HEBER FRITZ MD, BETH A. MD DATE: 12/01/2016. PERFORMING PHYSICIAN: Heber Fritz M.D. PREPROCEDURE DIAGNOSIS: Cryptogenic stroke. POSTPROCEDURE DIAGNOSIS: Successful loop recorder insertion PROCEDURES PERFORMED: 1. Fifteen (15) minutes of moderate IV sedation. 2. Loop recorder insertion. DESCRIPTION OF THE PROCEDURE IN DETAIL: The patient was brought to the DOC unit in the postabsorptive state after informed consent was obtained 2 mg of Versed and 25 mcg of fentanyl was used for moderate IV sedation. Next a Triductor LINQ loop recorder was inserted subcutaneously to the left chest. The patient tolerated the procedure well without any apparent complications. Tachybrady pause and atrial fibrillation detection was enabled. The initial R-wave was 0.28 mV. The serial number was [id number]. MD KEMAL Pitts/SUMA /1:38 PM /1:46 PM
== END 2016-12-01 14:52 | disposition home or self-care (01) ==
LOC: HDOC 10:59 → HDIC 11:00 → HDOC 14:52
PROVIDERS: ATTEND Nuclear Medicine Nuclear Cardiology
DX: G45.9 Transient cerebral ischemic attack, unspecified (principal); Q21.1 Atrial septal defect; I11.9 Hypertensive heart disease without heart failure; I50.9 Heart failure, unspecified; E78.5 Hyperlipidemia, unspecified
CPT/HCPCS: 33282; C1764; J0690; J2250; J3010

== ENCOUNTER 2017-01-26 05:37 | Day surgery (SDC) | payer OTHER ==
[~2017-01-26] VITALS: Ht 185.4 cm; Wt 99.1 kg
[~2017-01-26 05:37] MED LIST changes: -AMLO10 PO; +AMLO5TAB2 PO; -AZIT250T3 PO; +CALC0.25 PO; +CARV12.5 PO; -CARV6.25 PO; +D-20TAB3 PO; +ERGO1CAP30 PO; -LEVA500T PO; -MONT10TA2 PO; +MULT-135 PO; -OSEL30 PO; +ROBI0.2I3 SQ; +SERT-129 PO; -SERT-132 PO; -TRAM50TA PO; +ZITH250T PO
[2017-01-26] MEDS ORDERED: MUPIROCIN 2% OINT 1 APPLIC/GM SYR NASAL SCH (06:00)
[2017-01-26] MEDS ORDERED: NS 1000 ML IV SCH (06:00)
[2017-01-26] MEDS ORDERED: ASPI81CH CHEW (06:07)
[2017-01-26] MEDS ORDERED: MYCO500T PO (06:07)
[2017-01-26] MEDS ORDERED: PRAV40TA2 PO (06:07)
[2017-01-26] MEDS ORDERED: CHLORHEXIDINE GLUCONATE 2 % 1 PACK (2 CLOTHS) TOPICAL SCH (06:15)
[2017-01-26] MEDS ORDERED: ceFAZolin 2 GM PREMIX 50 ML IV SCH (06:15)
[2017-01-26] MEDS ORDERED: Hold AM Insulin & AM Hypoglycemic medications in diabetic patients PRN (06:15)
[2017-01-26] MEDS ORDERED: NO Heparin, Lovenox, Coumadin at least 12 hours prior to procedure. PRN (06:15)
[2017-01-26] MEDS ORDERED: POVIDONE IODINE 5% (ANTISEPSIS KIT) 4 APPLICATIONS EACH NARE SCH (06:15)
[2017-01-26 06:25] VITALS: BP 165/104; PULSE 81; RESP 18; TEMP 98.3; O2SAT 100
[2017-01-26] MEDS ORDERED: MIDAZOLAM HCL 5 MG/5 ML VIAL ONE (07:26)
[2017-01-26] MEDS ORDERED: HEPARIN-NS/PF INJ 500 ML ONE (07:46)
--- NOTE | 2017-01-26 08:27 | CATHPROC ---
[facility] HIS Report Study Information Study Number Admission Scheduled Start Study Start [id number] Jan 26 2017 5:37AM 01/26/2017 Jan 26 2017 7:19AM Jay Em Service Cardiac Pacer/ICD Admit Source Facility Department Other [facility] - [facility] Physician and Clinical Staff Initial Heber Fishman Director Imaging Jerry Walton RN Recorder Tata Anne,RT(R) (BS) Lynda Shelton,DIRECTOR SANITATION BUREAU TECH2 Equipment Time Line Assembler Description Size Mfg Part Number Used/Scraped [id number] 08:21 [employer] PACK, CCL CUSTOM * Used *[id number] 08:21 [employer] MEDICAL BLANKET,WARM AIR CCL * Used *[id number] RECORDER, REVEAL LINQ 9538 08:21 [facility] LNQSYS Used SYSTEM Equipment Model, Serial, Lot Number and Expiration Data Description Model Number Serial Number Lot Number Expiration Date PACK, CCL CUSTOM [id number] [id number] 11-17-2017 History: Allergies Allergy Reaction Bethanechol DIAPHORESIS Contrast Media ITCHING AND COUGHING History: Stress Tests Stress or Imaging Studies Performed No Medication Medication Total Dose (Bolus/Oral) Medication Total Dosage/Unit 1% XYLOCAINE 10 mL FENTANYL 100 mcg VERSED 3 mg Medications (Bolus/Oral) Medication Time Given Dosage/Unit Administered By Reason FENTANYL 01/26/2017 7:44:41 AM 100 mcg Jerry Walton RN 100 mcg FENTANYL given in lab by Jerry Walton RN in Right Antecubital via Peripheral IV. VERSED 01/26/2017 7:45:59 AM 2 mg Jerry Walton RN 2 mg VERSED given in lab by Jerry Walton RN in Right Antecubital via Peripheral IV. 1% XYLOCAINE 01/26/2017 7:49:33 AM 10 mL Heber Fritz 10 mL 1% XYLOCAINE given in left chest lab by Heber Fritz via Subcutaneous. VERSED 01/26/2017 7:50:43 AM 1 mg Jerry Walton RN 1 mg VERSED given in lab by Jerry Walton RN in Right Antecubital via Peripheral IV. Medication (Drip) Medication Time Given Dosage/Unit Concentration/Unit Diluent (ml) Solution ANCEF 01/26/2017 7:43:29 AM 2 g 2 g ANCEF given in lab by Jerry Walton RN in Right Antecubital via Peripheral IV. IV Solutions 01/26/2017 7:19:42 AM 0 mL (IV) 500 NaCl .9 IV Solutions given in lab by Jerry Walton RN in Right Antecubital via Peripheral IV. Pump/Drip Flow = 20 ml/hr using NaCl .9. Initial Case Assessment Cardiovascular HR Rhythm NIBP Chest Pain 75 reg 177/104 0 Edema Present Skin color Skin None Normal Warm Dry Circulatory - Lower Extremities Color Lower Right Color Lower Left Normal Normal Neurological State Oriented to time-place- Alert Moves all extremities person Respiration - General Respiration Rate SpO2 (%) O2 (lpm) (B/min) 13 100 2 Chronological Log Time Study Chronological Log 7:15:12 Patient arrived via Bed. 7:15:17 Patient Name, D.O.B, / Armband Verified By R.N. 7:15:19 Consent signed by the physician and the patient and verified by the Combo [facility] staff. 7:19:23 Pre-op and post- op instructions given; patient acknowledges understanding of instructions. 7:19:30 Presedation assessment performed by Combo Welder RN. 7:19:33 Patient has been NPO for More than 6Hrs. 7:19:34 Skin Breakdown none per pt 7:19:38 Patient Warmer Placed on the Table. 7:19:40 Inés Prominences Protected 7:19:41 A # 20 IV was noted in the Antecubital (right). Grade = 0 IV Solutions given in lab by Jerry Walton RN in Right Antecubital via Peripheral IV. Pump/Drip F low = 20 ml/hr using 7:19:42 NaCl .9. 7:19:43 History and physical on the chart or being dictated. Assessment: Initial Case, HR=75 BPM, Rhythm=reg, NIDD=948/104 mmhg, Chest Pain=0, Edema=None, Color=Normal, Skin = Warm, Dry Lower Right Extremities: Color=Normal 7:19:46 Lower Left Extremities: Color=Normal Neurological: State=Alert, Ox3, YA Respiration: Resp=13 B/min, MhW2=924 %, O2=2 lpm Vitals capture started with the following parameters, Patient=Adult, Interval=5 min, Initial Pre bsdnq=498 mmHg, 7:26:40 Deflation Rate=5 mmHg 7:27:21 HR=78 bpm, OCQT=910/104 mmhg, FhT8=281.0 %, Resp=9 B/min, Pain=0, Brooke=10, Roche=2 7:32:22 HR=76 bpm, NGNP=089/105 mmhg, CkB7=089.0 %, Resp=5 B/min, Pain=0, Brooke=10, Roche=2 7:34:48 Reference ECG taken 7:37:12 paged 7:37:23 HR=78 bpm, OZWX=858/131 mmhg, FlI4=158.0 %, Resp=14 B/min, Pain=0, Brooke=10, Roche=2 7:37:23 Left Upper Chest Prepped 7:41:54 MD arrived 7:42:28 HR=75 bpm, AYUL=064/108 mmhg, RkX6=269.0 %, Resp=13 B/min, Pain=0, Brooke=10, Roche=2 7:43:29 2 g ANCEF given in lab by Jerry Walton RN in Right Antecubital via Peripheral IV. 7:44:41 100 mcg FENTANYL given in lab by Jerry Walton RN in Right Antecubital via Peripheral IV. 7:45:59 2 mg VERSED given in lab by Jerry Walton RN in Right Antecubital via Peripheral IV. 7:47:25 HR=79 bpm, BUCG=448/100 mmhg, SpO2=99.0 %, Resp=11 B/min, Pain=0, Brooke=10, Roche=2 Time Out. Correct patient, correct procedure,correct physician, power injector not loaded with c ontrast with surgical 7:48:32 team present. Time Out Concurred by , individual staff in procedure 7:48:50 Case Start 7:49:33 10 mL 1% XYLOCAINE given in left chest lab by Heber Fritz via Subcutaneous. 7:50:43 1 mg VERSED given in lab by Jerry Walton RN in Right Antecubital via Peripheral IV. 7:52:01 Incision made at loop site 7:52:22 HR=81 bpm, EWDU=647/97 mmhg, SpO2=99.0 %, Resp=11 B/min, Pain=0, Brooke=10, Roche=2 7:55:55 Repositioning loop recorder. 7:57:23 HR=81 bpm, QKQP=559/95 mmhg, PdW0=182.0 %, Resp=14 B/min, Pain=0, Brooke=10, Roche=2 8:02:20 HR=81 bpm, DMRH=567/94 mmhg, WlJ8=119.0 %, Resp=12 B/min, Pain=0, Brooke=10, Roche=2 8:04:45 Loop recorder removed. 8:06:25 Incision made 8:07:21 HR=82 bpm, KKMO=866/98 mmhg, MqS7=817.0 %, Resp=11 B/min, Pain=0, Brooke=10, Roche=2 8:08:49 Loop inserted 8:12:22 HR=82 bpm, VLHK=933/95 mmhg, EaH4=000.0 %, Resp=13 B/min, Pain=0, Brooke=10, Roche=2 8:12:51 Case End 8:17:26 HR=79 bpm, NPVZ=163/100 mmhg, JzH7=793.0 %, Resp=7 B/min, Pain=0, Brooke=10, Roche=2 8:17:42 Sterile dressing applied to site 8:17:45 No case complications noted. 8:17:50 Bedside Report will be given. 8:21:57 Patient moved to stretcher 8:22:19 Vitals capture stopped. End Study - Contrast Media Used In Study Contrast Total Opened (mL) Total Used (mL) Total Wasted (mL) Unspecified 0 0 0 End Study - Radiation Exposure Fluoro Time (minutes) 0.0 End Study - Patient Disposition Complications Transferred To Interventional Outcome No Combo Welder Holding No attempt made
--- NOTE | 2017-01-26 08:48 | MA ---
cc: HEBER FRITZ MD, BETH A. MD DATE 01/26/[address] Heber Fritz PREPROCEDURE DIAGNOSIS TIA/poor signal from existing loop recorder. PROCEDURE PERFORMED 1. 30 minutes moderate IV sedation. 2. Loop recorder removal 3. Loop recorder insertion DESCRIPTION OF PROCEDURE The patient brought to the cardiac catheterization laboratory in the postabsorptive state. After informed consent was obtained, the patients left chest was prepped and draped. Using a mix of blunt and sharp dissection, the existing loop recorder was successfully removed. It was felt that due to the previous difficulty with artifact on that particular existing loop recorder, as well as any potential electrode disturbance from the extraction process, a new loop recorder would be used for the insertion. Next, the new loop recorder was inserted subcutaneously in the existing pocket though somewhat deeper to avoid superficial noise. The patient tolerated the procedure well without any apparent complications. The initial R-wave was between 0.37 mV and 0.46 mV. We did take time to try to reproduce any noise manually and no such noise was captured by the device. Tachybrady pause and atrial fibrillation detection was enabled. The serial number of the new lead device was [id number]. MD KEMAL Pitts/MO /8:19 AM /8:47 AM
[2017-01-26] MEDS ORDERED: hydrALAZINE HCL 20 MG/ML VIAL ONE (09:27)
[2017-01-26] MEDS ORDERED: hydrALAZINE HCL 20 MG/ML VIAL IV PUSH ONE (10:00)
== END 2017-01-26 10:25 | disposition home or self-care (01) ==
LOC: HDOC 05:37 → HDIC 05:38 → HDOC 10:25
PROVIDERS: ATTEND Nuclear Medicine Nuclear Cardiology
DX: T82.598A Other mechanical complication of other cardiac and vascular devices and implants, initial encounter (principal); G45.9 Transient cerebral ischemic attack, unspecified; I13.0 Hypertensive heart and chronic kidney disease with heart failure and stage 1 through stage 4 chronic kidney disease, or unspecified chronic kidney disease; N18.3 Chronic kidney disease, stage 3 (moderate); E11.22 Type 2 diabetes mellitus with diabetic chronic kidney disease; Z94.0 Kidney transplant status; K21.9 Gastro-esophageal reflux disease without esophagitis; I47.1 Supraventricular tachycardia; Q21.1 Atrial septal defect; E78.5 Hyperlipidemia, unspecified; C92.90 Myeloid leukemia, unspecified, not having achieved remission
CPT/HCPCS: 33282; 33284; C1764; J0360; J0690; J1644; J2250; J3010

== ENCOUNTER 2017-09-09 12:15 | Emergency (ER) | payer OTHER ==
[~2017-09-09] VITALS: Ht 185.4 cm; Wt 90.0 kg
[~2017-09-09 12:15] MED LIST changes: +ASPI-516 CHEW; -ASPI1TAB69 PO; -ERGO1CAP30 PO; -LIPI20TA PO; -MULT-135 PO; -MYCO500 PO; +MYCO500T PO; +PRAV40TA2 PO; -ZITH250T PO
[2017-09-09 12:16] VITALS: BP 131/74; PULSE 97; RESP 14; TEMP 98.1; O2SAT 100
[2017-09-09 12:56] LABS: AUTOMATED NEUTROPHIL # 4.8 TH/MM3 (1.8-7.7); BASOPHIL # 0.1 TH/MM3 (0-0.2); EOSINOPHIL # 0.2 TH/MM3 (0-0.4); EOSINOPHIL % 2.9 % (0.0-4.0); HEMATOCRIT 40.9 % (39.0-51.0); HEMOGLOBIN 13.9 GM/DL (13.0-17.0); LYMPH % 13.4 % (9.0-44.0); LYMPHOCYTE # 0.9 TH/MM3 (1.0-4.8); MEAN CORPUSCULAR HEMOGLOBIN 28.6 PG (27.0-34.0); MEAN CORPUSCULAR HGB CONC 34.1 % (32.0-36.0); MEAN PLATELET VOLUME 8.2 FL (7.0-11.0); MONO % 11.5 % (0.0-8.0); MONOCYTE # 0.8 TH/MM3 (0-0.9); NEUT % 71.2 % (16.0-70.0); PLATELET COUNT 275 TH/MM3 (150-450); RED BLOOD COUNT 4.87 MIL/MM3 (4.50-5.90); RED CELL DISTRIBUTION WIDTH 13.5 % (11.6-17.2); WHITE BLOOD COUNT 6.8 TH/MM3 (4.0-11.0)
--- NOTE | 2017-09-09 13:06 | RADRPT ---
EXAM DATE/TIME: 09/09/2017 12:55 [place] COMPARISON: CHEST PA & LAT, August 26, 2016, 11:42. INDICATIONS : Cough, vomitting and fever. MEDICAL HISTORY : None. SURGICAL HISTORY : Loop recorder ENCOUNTER: Initial ACUITY: 2 weeks PAIN SCORE: 0/10 LOCATION: Bilateral chest FINDINGS: PA and lateral views of the chest demonstrate the lungs to be symmetrically aerated without evidence of mass, infiltrate or effusion. The cardiomediastinal contours are unremarkable. Osseous structure s are intact. CONCLUSION: No acute disease. Fito Pickering MD on September 09, 2017 at 13:04 Board Certified Radiologist. This report was verified electronically.
[2017-09-09 13:12] LABS: BICARBONATE 20.5 MEQ/L (21.0-32.0); CALCIUM 9.9 MG/DL (8.5-10.1); CREATININE 2.08 MG/DL (0.60-1.30)
[2017-09-09] MEDS ORDERED: FLUT1SPR5 EACH NARE (13:14)
[2017-09-09] MEDS ORDERED: ZOLO100T PO (13:14)
[2017-09-09] MEDS ORDERED: MULTTAB67 PO (13:14)
[2017-09-09] MEDS ORDERED: EZET10 PO (13:14)
[2017-09-09] MEDS ORDERED: HUMIBIDDM PO (13:14)
[2017-09-09] MEDS ORDERED: LEVA500T33 PO (13:42)
--- NOTE | 2017-09-09 13:42 | PD ---
HPI Chief Complaint: Cold / Flu Symptoms Time Seen by Provider: 13:05 Travel History International Travel<30 days: No Contact w/Intl Traveler<30days: No Traveled to known affect area: No History of Present Illness HPI This is a 46-year-old male who has a history of chronic myeloproliferative disorder, as well as chronic kidney disease status post renal transplant who presents to the emergency department with cough for 3 weeks. He says the cough is worse in the morning productive with brownish sputum, intermittent, with no associated shortness of breath, fevers or chills. He has had some rhinorrhea. He is on immunosuppression currently. PFSH Past Medical History Hx Anticoagulant Therapy: Yes Arthritis: No Asthma: No Autoimmune Disease: No Blood Disorders: No Anxiety: No Depression: No Heart Rhythm Problems: Yes (CARDIOVERSION (2009)) Cancer: Yes (LEUKEMIA) Cardiovascular Problems: Yes High Cholesterol: Yes (ON STATIN) Chemotherapy: Yes Chest Pain: Yes Congestive Heart Failure: Yes COPD: No Cerebrovascular Accident: Yes (CVA) Diabetes: Yes Patient Takes Glucophage: No Dialysis: Yes (MON-SUN (OFF SAT AND SUN)) Diminished Hearing: No Endocrine: Yes Gastrointestinal Disorders: Yes (HEMOPTISIS/RECURRENT ESOPHAGEAL ULCERS) GERD: Yes Glaucoma: No Genitourinary: Yes Hepatitis: No Hiatal Hernia: No Hypertension: Yes Immune Disorder: No Implanted Vascular Access Dvce: Yes ( LEFT AVF) Kidney Stones: No Musculoskeletal: Yes (LEFT KNEE ARTHROPLASTY (CYST)) Neurologic: Yes (MULTIPLE STROKES, RESIDUAL LEFTSIDED WEAKNESS) Psychiatric: No Reproductive: Yes (PENILE IMPLANT) Respiratory: Yes (INTUBATED 2009, HYPERGLYCEMIA) Migraines: Yes Myocardial Infarction: No Pneumonia: Yes Radiation Therapy: No Renal Failure: Yes (NOT SINCE KIDNEY TRANSPLANT) Seizures: No Sleep Apnea: No Thyroid Disease: No Ulcer: Yes Tetanus Vaccination: < 5 Years Influenza Vaccination: Yes PNEUMOCCOCAL Vaccine (Year): 2 Past Surgical History Abdominal Surgery: Yes (5X EGD'S FOR ESOPHAGIAL ULCERS) AICD: No Arteriovenous Shunt: Yes (LEFT ARM WITH STENTS) Cardiac Surgery: Yes (LEFT A/V FISTULA, CARDIOVERSION (2009), EVENT MONITOR) Ear Surgery: No Endocrine Surgery: No Eye Surgery: Yes (CATARACT SURGERY WITH IMPLANTS) Genitourinary Surgery: Yes (PENILE IMPLANT/ left kidney transplant) Gynecologic Surgery: No Insulin Pump: Yes Joint Replacement: No Neurologic Surgery: No Oral Surgery: No Pacemaker: No Thoracic Surgery: No Other Surgery: Yes (JACK GREAT TOES REMOVED/ left avf fistula) Social History Alcohol Use: No Tobacco Use: No Substance Use: No Allergies-Medications (Allergen,Severity, Reaction): Coded Allergies: bethanechol (Unverified Allergy, Mild, DIAPHORESIS, 09/09/17) diatrizoate meglumine (Unverified Allergy, Mild, ITCHING AND COUGHING, 09/09) gadobenic acid (Unverified Allergy, Mild, ITCHING AND COUGHING, 09/09/17) gadodiamide (Unverified Allergy, Mild, ITCHING AND COUGHING, 09/09/17) gadoteridol (Unverified Allergy, Mild, ITCHING AND COUGHING, 09/09/17) iodixanol (Unverified Allergy, Mild, ITCHING AND COUGHING, 09/09/17) iohexol (Unverified Allergy, Mild, ITCHING AND COUGHING, 09/09/17) Reported Meds & Prescriptions Reported Meds & Active Scripts Active Reported Mucinex DM (Dextromethorphan-Guaifenesin) 30-600 Mg Tab 1 Tab PO BID PRN Multiple Vitamin 1 Tab 1 Tab PO DAILY Zoloft (Sertraline HCl) 100 Mg Tab 100 Mg PO DAILY Flonase Nasal Caney (Fluticasone Nasal Caney) 50 Mcg/Act Caney 50 Mcg EACH NARE BID Zetia (Ezetimibe) 10 Mg Tab 10 Mg PO HS Mycophenolate (Mycophenolate Mofetil) 500 Mg Tab 1,000 Mg PO BID Pravastatin 40 Mg Tab 40 Mg PO DAILY Aspirin 81 Mg Chew 81 Mg CHEW DAILY Robinul Inj (Glycopyrrolate) 1 Mg/5 Ml Inj 1 Mg SQ DAILY D-2000 Maximum Strength (Cholecalciferol) 2,000 Unit Tab 2,000 Units PO DAILY Coreg (Carvedilol) 12.5 Mg Tab 12.5 Mg PO DAILY Calcitriol 0.25 Mcg Cap 0.25 Mcg PO DAILY Amlodipine (Amlodipine Besylate) 5 Mg Tab 5 Mg PO DAILY Novolog Inj (Insulin Aspart) 1,000 Unit/10 Ml Vial Unknown Dose IMPLANPUMP DIRECTED Gleevec (Imatinib Mesylate) 100 Mg Tab 100 Mg PO HS Prograf (Tacrolimus) 1 Mg Cap 3 Mg PO BID Zantac (Ranitidine HCl) 300 Mg Tab 300 Mg PO BID Carafate (Sucralfate) 1 Gm Tab 1 Gm PO HS On empty stomach Review of Systems Except as stated in HPI: all other systems reviewed are Neg Physical Exam Narrative GENERAL:Well appearing, no acute distress SKIN: Focused skin assessment warm and dry. HEAD: Atraumatic. Normocephalic. EYES: Pupils equal and round. No injection or drainage. ENT: Moist mucous membranes NECK: Trachea midline. CARDIOVASCULAR: Regular rate and rhythm. No murmur appreciated. RESPIRATORY: Clear to auscultation. Breath sounds equal bilaterally. GASTROINTESTINAL: Abdomen soft, non-tender, nondistended. MUSCULOSKELETAL: No obvious deformities. NEUROLOGICAL: Awake and alert. No obvious cranial nerve deficits. Moving all extremities. PSYCHIATRIC: Appropriate mood and affect; insight and judgment normal. Data Data Last Documented VS Vital Signs Date Time Temp Pulse Resp B/P (MAP) Pulse Ox O2 Delivery O2 Flow Rate FiO2 09/09/17 12:16 98.1 97 14 131/74 (93) 100 Orders Orders Influenzae A/B Antigen (09/09/17 12:18) Complete Blood Count With Diff (09/09/17 12:25) Basic Metabolic Panel (Bmp) (09/09/17 12:25) Chest, Pa & Lat (09/09/17 ) Labs Laboratory Tests Test 09/09/17 12:38 White Blood Count 6.8 TH/MM3 Red Blood Count 4.87 MIL/MM3 Hemoglobin 13.9 GM/DL Hematocrit 40.9 % Mean Corpuscular Volume 84.0 FL Mean Corpuscular Hemoglobin 28.6 PG Mean Corpuscular Hemoglobin Concent 34.1 % Red Cell Distribution Width 13.5 % Platelet Count 275 TH/MM3 Mean Platelet Volume 8.2 FL Neutrophils (%) (Auto) 71.2 % Lymphocytes (%) (Auto) 13.4 % Monocytes (%) (Auto) 11.5 % Eosinophils (%) (Auto) 2.9 % Basophils (%) (Auto) 1.0 % Neutrophils # (Auto) 4.8 TH/MM3 Lymphocytes # (Auto) 0.9 TH/MM3 Monocytes # (Auto) 0.8 TH/MM3 Eosinophils # (Auto) 0.2 TH/MM3 Basophils # (Auto) 0.1 TH/MM3 CBC Comment DIFF FINAL Differential Comment Blood Urea Nitrogen 23 MG/DL Creatinine 2.08 MG/DL Random Glucose 112 MG/DL Calcium Level 9.9 MG/DL Sodium Level 136 MEQ/L Potassium Level 4.9 MEQ/L Chloride Level 110 MEQ/L Carbon Dioxide Level 20.5 MEQ/L Anion Gap 6 MEQ/L Estimat Glomerular Filtration Rate 42 ML/MIN MDM Medical Decision Making Medical Screen Exam Complete: Yes Emergency Medical Condition: Yes Medical Record Reviewed: Yes (Review Dr. Shay his most recent note, patient is on chronic immunosuppression secondary to chronic myeloproliferative disorder and kidney transplant) Interpretation(s) Afebrile, mild tachycardia, normotensive No leukocytosis Renal insufficiency is similar to prior Chest x-ray: No acute process Influenza is negative Differential Diagnosis Pneumonia, bronchitis, pulmonary embolism Narrative Course This is a 46-year-old male who presents to the emergency department with productive cough it has been going on for 3 weeks. They showed me a picture of his sputum which was yellow brownish color. Patient has reassuring vital signs and a benign exam. Labs and chest x-ray are at the patient's baseline. He has no evidence of pneumonia. His symptoms are not consistent with a pulmonary embolism and are more consistent with bronchitis. Patient will be discharged on Levaquin. Creatinine clearance calculated at 57. Diagnosis Primary Impression: Acute bronchitis Qualified Codes: J20.9 - Acute bronchitis, unspecified Patient Instructions: General Instructions Additional Instructions: If you develop severe chest pain, shortness of breath or fever return to the emergency department. Follow up with your primary care physician or finishing range supervisor as an outpatient. Med/Other Pt SpecificInfo: Prescription(s) given Scripts Levofloxacin (Levaquin) 500 Mg Tablet 500 MG PO DAILY for Infection for 7 Days, #7 TAB 0 Refills Prov: Lisa Gonzalez MD 09/09/17 Disposition: 01 DISCHARGE HOME Condition: Stable Lisa Gonzalez MD Sep 09, 2017 13:42
== END 2017-09-09 14:33 | disposition home or self-care (01) ==
LOC: NEPD 12:15
DX: J20.9 Acute bronchitis, unspecified (principal); R00.0 Tachycardia, unspecified; C94.6 Myelodysplastic disease, not elsewhere classified; E11.22 Type 2 diabetes mellitus with diabetic chronic kidney disease; I13.0 Hypertensive heart and chronic kidney disease with heart failure and stage 1 through stage 4 chronic kidney disease, or unspecified chronic kidney disease; I50.9 Heart failure, unspecified; N18.9 Chronic kidney disease, unspecified; Z94.0 Kidney transplant status; Z99.2 Dependence on renal dialysis
CPT/HCPCS: 71046; 80048; 85025; 87804; 99284

== ENCOUNTER 2017-09-26 14:11 | Inpatient (IN) | payer OTHER, MEDICARE ==
[~2017-09-26] VITALS: Ht 185.4 cm; Wt 82.4 kg
[~2017-09-26 14:11] MED LIST changes: -ASPI-516 CHEW; +ASPI-516 PO; +EZET10 PO; +FLUT1SPR5 EACH NARE; +HUMIBIDDM PO; +LEVA500T33 PO; +MULTTAB67 PO; -SERT-129 PO; +ZOLO100T PO
[2017-09-26 14:13] VITALS: BP 138/79; PULSE 105; RESP 14; TEMP 98.8; O2SAT 100
[2017-09-26] MEDS ORDERED: SODIUM CHLOR 0.9% 1000 ML INJ 1,000 ML IV SCH ×2 (15:36→20:35)
[2017-09-26 15:38] VITALS: BP 172/81; PULSE 96; RESP 18; O2SAT 100
[2017-09-26] MEDS ORDERED: PANTOPRAZOLE SODIUM 40 MG VIAL IVP ONE (15:45)
[2017-09-26] MEDS ORDERED: SODIUM CHLOR 0.9% 1000 ML INJ 1,000 ML IV ONE ×2 (15:45→19:30)
[2017-09-26] MEDS ORDERED: SODIUM CHLORIDE 0.9% FLUSH 10 ML FLUSH IV FLUSH PRN (15:45)
[2017-09-26 15:55] LABS: AUTOMATED NEUTROPHIL # 8.7 TH/MM3 (1.8-7.7); BASOPHIL # 0.1 TH/MM3 (0-0.2); BASOPHIL % 0.6 % (0.0-2.0); EOSINOPHIL % 0.1 % (0.0-4.0); HEMATOCRIT 41.2 % (39.0-51.0); HEMOGLOBIN 13.1 GM/DL (13.0-17.0); LYMPH % 8.4 % (9.0-44.0); LYMPHOCYTE # 0.9 TH/MM3 (1.0-4.8); MEAN CELL VOLUME 85.8 FL (80.0-100.0); MEAN CORPUSCULAR HEMOGLOBIN 27.3 PG (27.0-34.0); MEAN CORPUSCULAR HGB CONC 31.8 % (32.0-36.0); MEAN PLATELET VOLUME 8.7 FL (7.0-11.0); MONO % 5.5 % (0.0-8.0); MONOCYTE # 0.6 TH/MM3 (0-0.9); NEUT % 85.4 % (16.0-70.0); PLATELET COUNT 332 TH/MM3 (150-450); RED CELL DISTRIBUTION WIDTH 14.2 % (11.6-17.2); WHITE BLOOD COUNT 10.1 TH/MM3 (4.0-11.0)
[2017-09-26 15:59] LABS: PROTHROMBIN TIME - PATIENT 10.6 SEC (9.8-11.6)
--- NOTE | 2017-09-26 16:09 | PD ---
HPI Chief Complaint: GI Complaint Time Seen by Provider: 15:09 Travel History International Travel<30 days: No Contact w/Intl Traveler<30days: No Traveled to known affect area: No History of Present Illness HPI 46-year-old male presents to the emergency department with complaint of that emesis since this morning. He has been vomiting every day for the past month, once daily. For the past 36 hours he has been able to keep anything down with increasing vomiting. He has history of GI bleed. Reports epigastric pain on and off, and denies pain at this time. Denies anticoagulant therapy. Takes aspirin daily. History of a esophageal ulcers. Denies chest pain, shortness of breath. Reports diarrhea without hematochezia. Denies fevers. Has been taking sulcrafate asnd ratinidine for symptom management, that was prescribed by his GI doctor, Dr. Almodovar. No known relieving or aggravating factors. Symptoms are moderate to severe in severity. Also has history of Eosinophil leukemia, kidney transplant in 2015, hypercholesterolemia, insulin-dependent diabetes, and hypertension. Did not replace his insulin pump yesterday because he did not feel well. Checked his blood sugar prior to arrival and it was 466. Dr. Schmitz is primary care provider. Has no other medical complaints. No other modifying factors or associated signs and symptoms. PFSH Past Medical History Hx Anticoagulant Therapy: Yes Arthritis: No Asthma: No Autoimmune Disease: No Blood Disorders: No Anxiety: No Depression: No Heart Rhythm Problems: Yes (CARDIOVERSION (2009)) Cancer: Yes (LEUKEMIA) Cardiovascular Problems: Yes (HTN) High Cholesterol: Yes (ON STATIN) Chemotherapy: Yes Chest Pain: Yes Congestive Heart Failure: Yes COPD: No Cerebrovascular Accident: Yes (CVA) Diabetes: Yes Patient Takes Glucophage: No Dialysis: No Diminished Hearing: No Endocrine: Yes Gastrointestinal Disorders: Yes (HEMOPTISIS/RECURRENT ESOPHAGEAL ULCERS) GERD: Yes Glaucoma: No Genitourinary: Yes Hepatitis: No Hiatal Hernia: No Hypertension: Yes Immune Disorder: No Implanted Vascular Access Dvce: Yes ( LEFT AVF) Kidney Stones: No Musculoskeletal: Yes (LEFT KNEE ARTHROPLASTY (CYST)) Neurologic: Yes (MULTIPLE STROKES, RESIDUAL LEFTSIDED WEAKNESS) Psychiatric: No Reproductive: Yes (PENILE IMPLANT) Respiratory: Yes (INTUBATED 2009, HYPERGLYCEMIA) Migraines: Yes Myocardial Infarction: No Pneumonia: Yes Radiation Therapy: No Renal Failure: Yes (NOT SINCE KIDNEY TRANSPLANT) Seizures: No Sleep Apnea: No Thyroid Disease: No Ulcer: Yes PNEUMOCCOCAL Vaccine (Year): 2 ?: Not Past Surgical History Abdominal Surgery: Yes (5X EGD'S FOR ESOPHAGIAL ULCERS) AICD: No Arteriovenous Shunt: Yes (LEFT ARM WITH STENTS) Cardiac Surgery: Yes (LEFT A/V FISTULA, CARDIOVERSION (2009), EVENT MONITOR) Ear Surgery: No Endocrine Surgery: No Eye Surgery: Yes (CATARACT SURGERY WITH IMPLANTS) Genitourinary Surgery: Yes (PENILE IMPLANT/ left kidney transplant) Gynecologic Surgery: No Insulin Pump: Yes Joint Replacement: No Neurologic Surgery: No Oral Surgery: No Pacemaker: No Thoracic Surgery: No Other Surgery: Yes (JACK GREAT TOES REMOVED/ left avf fistula) Social History Alcohol Use: Yes (OCASSIONALLY) Tobacco Use: No Substance Use: No Allergies-Medications (Allergen,Severity, Reaction): Coded Allergies: bethanechol (Unverified Allergy, Mild, DIAPHORESIS, 09/26/17) diatrizoate meglumine (Unverified Allergy, Mild, ITCHING AND COUGHING, ) gadobenic acid (Unverified Allergy, Mild, ITCHING AND COUGHING, 09/26/17) gadodiamide (Unverified Allergy, Mild, ITCHING AND COUGHING, 09/26/17) gadoteridol (Unverified Allergy, Mild, ITCHING AND COUGHING, 09/26/17) iodixanol (Unverified Allergy, Mild, ITCHING AND COUGHING, 09/26/17) iohexol (Unverified Allergy, Mild, ITCHING AND COUGHING, 09/26/17) Reported Meds & Prescriptions Reported Meds & Active Scripts Active Reported Glycopyrrolate 1 Mg Tab 1 Mg PO DAILY Azithromycin 250 Mg Tab 250 Mg PO DAILY Prograf (Tacrolimus) 1 Mg Cap 4 Mg PO DAILY IN THE AM Mucinex DM (Dextromethorphan-Guaifenesin) 30-600 Mg Tab 1 Tab PO BID PRN Multiple Vitamin 1 Tab 1 Tab PO DAILY Zoloft (Sertraline HCl) 100 Mg Tab 100 Mg PO DAILY Flonase Nasal [place] (Fluticasone Nasal [place]) 50 Mcg/Act [place] 50 Mcg EACH NARE BID Zetia (Ezetimibe) 10 Mg Tab 10 Mg PO HS Mycophenolate (Mycophenolate Mofetil) 500 Mg Tab 1,000 Mg PO BID Pravastatin 40 Mg Tab 40 Mg PO HS Aspirin 81 Mg Chew 81 Mg PO DAILY D-2000 Maximum Strength (Cholecalciferol) 2,000 Unit Tab 2,000 Units PO DAILY Coreg (Carvedilol) 12.5 Mg Tab 12.5 Mg PO BID Calcitriol 0.25 Mcg Cap 0.25 Mcg PO DAILY Amlodipine (Amlodipine Besylate) 5 Mg Tab 5 Mg PO DAILY IN THE PM Novolog Inj (Insulin Aspart) 1,000 Unit/10 Ml Vial Unknown Dose IMPLANPUMP DIRECTED Gleevec (Imatinib Mesylate) 100 Mg Tab 100 Mg PO HS Prograf (Tacrolimus) 1 Mg Cap 3 Mg PO DAILY IN THE PM Zantac (Ranitidine HCl) 300 Mg Tab 300 Mg PO BID Carafate (Sucralfate) 1 Gm Tab 1 Gm PO BID On empty stomach Review of Systems Except as stated in HPI: all other systems reviewed are Neg Physical Exam Narrative GENERAL: Well-nourished, well-developed black male patient, in no acute distress ; afebrile; jittery; appears like he doesn't feel well SKIN: Pale appearing. Warm and dry. HEAD: Atraumatic. Normocephalic. EYES: Pupils equal and round. No scleral icterus. No injection or drainage. ENT: Mucosa pink and moist. Airway patent. NECK: Trachea midline. CARDIOVASCULAR: Regular rate and rhythm. No murmur appreciated. RESPIRATORY: No accessory muscle use. Clear to auscultation. Breath sounds equal bilaterally. GASTROINTESTINAL: Abdomen soft, tenderness on palpation to epigastric region, nondistended. Hepatic and splenic margins not palpable. Bowel sounds are active 4 quadrants. Nonrigid. No rebound tenderness. No guarding. MUSCULOSKELETAL: No obvious deformities. No clubbing. No cyanosis. No edema. NEUROLOGICAL: Awake and alert. Oriented 3. No obvious cranial nerve deficits. Motor grossly within normal limits. Normal speech. PSYCHIATRIC: Appropriate mood and affect; insight and judgment normal. Data Data Last Documented VS Vital Signs Date Time Temp Pulse Resp B/P (MAP) Pulse Ox O2 Delivery O2 Flow Rate FiO2 09/26/17 19:00 95 18 141/68 (92) 100 Room Air 09/26/17 18:51 99.7 Orders Orders Complete Blood Count With Diff (09/26/17 14:21) Comprehensive Metabolic Panel (09/26/17 14:21) Coag Profile (09/26/17 14:21) Iv Access Insert/Monitor (09/26/17 15:36) Pantoprazole Inj (Protonix Inj) (09/26/17 15:45) Sodium Chlor 0.9% 1000 Ml Inj (Ns 1000 M (09/26/17 15:36) Sodium Chloride 0.9% Flush (Ns Flush) (09/26/17 15:45) Sodium Chlor 0.9% 1000 Ml Inj (Ns 1000 M (09/26/17 15:45) Blood Gas Venous (Vbg) (09/26/17 15:41) Ondansetron Inj (Zofran Inj) (09/26/17 16:15) Urinalysis - C+S If Indicated (09/26/17 16:12) Ct Abd/Pel W/O Iv Contrast (09/26/17 16:15) Sodium Chlor 0.9% 1000 Ml Inj (Ns 1000 M (09/26/17 16:56) Sodium Chlor 0.9% 1000 Ml Inj (Ns 1000 M (09/26/17 16:56) Dext 5%-Nacl 0.9% 1000 Ml Inj (D5w-Ns 10 (09/26/17 18:00) Insulin Regular (Iv Infusion) (Novolin R (09/26/17 17:00) Potassium Chlor 20 Meq Premix (Kcl 20 Me (09/26/17 17:00) Potassium Chlor 20 Meq Premix (Kcl 20 Me (09/26/17 17:00) Potassium Chlor 20 Meq Premix (Kcl 20 Me (09/26/17 17:00) Potassium Chlor 20 Meq Premix (Kcl 20 Me (09/26/17 17:00) Sodium Bicarbonate 8.4% Inj (Sodium Bica (09/26/17 17:00) Sodium Bicarbonate 8.4% Inj (Sodium Bica (09/26/17 17:00) Sodium Phosphate Inj (Sodium Phosphate I (09/26/17 17:00) Basic Metabolic Panel (Bmp) (09/27/17 03:56) Basic Metabolic Panel (Bmp) (09/27/17 09:56) Basic Metabolic Panel (Bmp) (09/27/17 15:56) Magnesium (Mg) (09/27/17 03:56) Magnesium (Mg) (09/27/17 09:56) Magnesium (Mg) (09/27/17 15:56) Phosphorus (Po4) (09/27/17 03:56) Phosphorus (Po4) (09/27/17 09:56) Phosphorus (Po4) (09/27/17 15:56) Beta Hydroxybutyrate (Acetone) (09/27/17 03:56) Beta Hydroxybutyrate (Acetone) (09/27/17 15:56) Beta Hydroxybutyrate (Acetone) (09/26/17 17:31) Radiology Film Requests (09/26/17 ) Influenzae A/B Antigen (09/26/17 19:21) Sodium Chlor 0.9% 1000 Ml Inj (Ns 1000 M (09/26/17 19:30) Chest, Single Ap (09/26/17 ) Admit Order (Ed Use Only) (09/26/17 19:54) Labs Laboratory Tests Test 09/26/17 15:35 09/26/17 16:15 09/26/17 17:06 09/26/17 18:17 White Blood Count 10.1 TH/MM3 Red Blood Count 4.80 MIL/MM3 Hemoglobin 13.1 GM/DL Hematocrit 41.2 % Mean Corpuscular Volume 85.8 FL Mean Corpuscular Hemoglobin 27.3 PG Mean Corpuscular Hemoglobin Concent 31.8 % Red Cell Distribution Width 14.2 % Platelet Count 332 TH/MM3 Mean Platelet Volume 8.7 FL Neutrophils (%) (Auto) 85.4 % Lymphocytes (%) (Auto) 8.4 % Monocytes (%) (Auto) 5.5 % Eosinophils (%) (Auto) 0.1 % Basophils (%) (Auto) 0.6 % Neutrophils # (Auto) 8.7 TH/MM3 Lymphocytes # (Auto) 0.9 TH/MM3 Monocytes # (Auto) 0.6 TH/MM3 Eosinophils # (Auto) 0.0 TH/MM3 Basophils # (Auto) 0.1 TH/MM3 CBC Comment DIFF FINAL Differential Comment Prothrombin Time 10.6 SEC Prothromb Time International Ratio 1.0 RATIO Activated Partial Thromboplast Time 23.9 SEC Blood Urea Nitrogen 33 MG/DL Creatinine 2.56 MG/DL Random Glucose 451 MG/DL Total Protein 8.3 GM/DL Albumin 4.5 GM/DL Calcium Level 10.1 MG/DL Alkaline Phosphatase 85 U/L Aspartate Amino Transf (AST/SGOT) 16 U/L Alanine Aminotransferase (ALT/SGPT) 19 U/L Total Bilirubin 0.6 MG/DL Sodium Level 133 MEQ/L Potassium Level 5.8 MEQ/L Chloride Level 98 MEQ/L Carbon Dioxide Level 17.3 MEQ/L Anion Gap 18 MEQ/L Estimat Glomerular Filtration Rate 33 ML/MIN Blood Gas Puncture Site NURSE Blood Gas Patient Temperature 98.6 Venous Blood pH 7.31 Venous Blood Partial Pressure CO2 34 mmHg Venous Blood Partial Pressure O2 41 mmHg Venous Blood HCO3 16 mmol/L Venous Blood Oxygen Saturation 72 % Venous Blood Oxygen Content 12.3 Vol % Venous Blood Base Excess -8.7 mmol/L Blood Gas Inspired Oxygen 21 % Urine Color LIGHT-YELLOW Urine Turbidity CLEAR Urine pH 5.5 Urine Specific [place] 1.025 Urine Protein NEG mg/dL Urine Glucose (UA) 1000 mg/dL Urine Ketones 80 mg/dL Urine Occult Blood NEG Urine Nitrite NEG Urine Bilirubin NEG Urine Urobilinogen LESS THAN 2.0 MG/DL Urine Leukocyte Esterase NEG Urine RBC LESS THAN 1 /hpf Urine WBC LESS THAN 1 /hpf Urine Mucus FEW /lpf Microscopic Urinalysis Comment CULT NOT INDICATED B-Hydroxybutyrate 7.57 MMOL/L MDM Medical Decision Making Medical Screen Exam Complete: Yes Emergency Medical Condition: Yes Medical Record Reviewed: Yes Differential Diagnosis DKA, hyperglycemia, gastroenteritis, influenza, GI bleed Narrative Course 46-year-old male with history of kidney transplant in 2014 and insulin- dependent diabetic that does not appear like he feels well with complaints of vomiting for the past 3 days, epigastric abdominal pain, and vomiting blood today. He removed his insulin pump yesterday and has not replaced it. Bedside glucose 453. CBC, CMP coags ordered in triage. 2 L normal saline bolus, Zofran , urinalysis ordered. I asked Dr. Rondon to evaluate the patient. 1617: Dr. Rondon evaluated the patient recommended CT abd/pelvis. CBC, coags unremarkable. Dr. Rondon ordered other labs. 1700: Dr. Rondon ordered DKA protocol as the patient is in DKA. Dr. Rondon gave report to Dr. Osborne at change of shift. 1728: I spoke with Dr. Triana and he recommends for the patient to be transferred to [facility] to his handicrafts teacher/transplant specialist Dr Verdugo. Call placed to Dr. Valenzuela. 1822: I spoke with Dr Valenzuela and he is accepting the patient to be transferred to [facility] for continued care. Call placed to [facility] hospitalist to give report and transfer the patient. 1914: Dr. Osborne assumed patient care at this time. See his note for final patient disposition. Diagnosis Primary Impression: DKA (diabetic ketoacidoses) Qualified Codes: E08.10 - Diabetes mellitus due to underlying condition with ketoacidosis without coma Ami Rasheed Sep 26, 2017 16:09
[2017-09-26] MEDS ORDERED: ONDANSETRON HCL 4 MG/2 ML VIAL IV PUSH ONE (16:15)
--- NOTE | 2017-09-26 16:19 | PD ---
Data Data Last Documented VS Vital Signs Date Time Temp Pulse Resp B/P (MAP) Pulse Ox O2 Delivery O2 Flow Rate FiO2 09/26/17 15:38 96 18 172/81 (111) 100 Room Air 09/26/17 14:13 98.8 Orders Orders Complete Blood Count With Diff (09/26/17 14:21) Comprehensive Metabolic Panel (09/26/17 14:21) Coag Profile (09/26/17 14:21) Iv Access Insert/Monitor (09/26/17 15:36) Pantoprazole Inj (Protonix Inj) (09/26/17 15:45) Sodium Chlor 0.9% 1000 Ml Inj (Ns 1000 M (09/26/17 15:36) Sodium Chloride 0.9% Flush (Ns Flush) (09/26/17 15:45) Sodium Chlor 0.9% 1000 Ml Inj (Ns 1000 M (09/26/17 15:45) Blood Gas Venous (Vbg) (09/26/17 15:41) Ondansetron Inj (Zofran Inj) (09/26/17 16:15) Urinalysis - C+S If Indicated (09/26/17 16:12) Ct Abd/Pel W/O Iv Contrast (09/26/17 16:15) Sodium Chlor 0.9% 1000 Ml Inj (Ns 1000 M (09/26/17 16:56) Sodium Chlor 0.9% 1000 Ml Inj (Ns 1000 M (09/26/17 16:56) Dext 5%-Nacl 0.9% 1000 Ml Inj (D5w-Ns 10 (09/26/17 16:56) Insulin Regular (Iv Infusion) (Novolin R (09/26/17 17:00) Potassium Chlor 20 Meq Premix (Kcl 20 Me (09/26/17 17:00) Potassium Chlor 20 Meq Premix (Kcl 20 Me (09/26/17 17:00) Potassium Chlor 20 Meq Premix (Kcl 20 Me (09/26/17 17:00) Potassium Chlor 20 Meq Premix (Kcl 20 Me (09/26/17 17:00) Sodium Bicarbonate 8.4% Inj (Sodium Bica (09/26/17 17:00) Sodium Bicarbonate 8.4% Inj (Sodium Bica (09/26/17 17:00) Sodium Phosphate Inj (Sodium Phosphate I (09/26/17 17:00) Basic Metabolic Panel (Bmp) (09/26/17 21:56) Basic Metabolic Panel (Bmp) (09/27/17 03:56) Basic Metabolic Panel (Bmp) (09/27/17 09:56) Basic Metabolic Panel (Bmp) (09/27/17 15:56) Magnesium (Mg) (09/26/17 21:56) Magnesium (Mg) (09/27/17 03:56) Magnesium (Mg) (09/27/17 09:56) Magnesium (Mg) (09/27/17 15:56) Phosphorus (Po4) (09/26/17 21:56) Phosphorus (Po4) (09/27/17 03:56) Phosphorus (Po4) (09/27/17 09:56) Phosphorus (Po4) (09/27/17 15:56) Beta Hydroxybutyrate (Acetone) (09/27/17 03:56) Beta Hydroxybutyrate (Acetone) (09/27/17 15:56) Beta Hydroxybutyrate (Acetone) (09/26/17 17:31) Labs Laboratory Tests Test 09/26/17 15:35 09/26/17 16:15 09/26/17 17:06 White Blood Count 10.1 TH/MM3 Red Blood Count 4.80 MIL/MM3 Hemoglobin 13.1 GM/DL Hematocrit 41.2 % Mean Corpuscular Volume 85.8 FL Mean Corpuscular Hemoglobin 27.3 PG Mean Corpuscular Hemoglobin Concent 31.8 % Red Cell Distribution Width 14.2 % Platelet Count 332 TH/MM3 Mean Platelet Volume 8.7 FL Neutrophils (%) (Auto) 85.4 % Lymphocytes (%) (Auto) 8.4 % Monocytes (%) (Auto) 5.5 % Eosinophils (%) (Auto) 0.1 % Basophils (%) (Auto) 0.6 % Neutrophils # (Auto) 8.7 TH/MM3 Lymphocytes # (Auto) 0.9 TH/MM3 Monocytes # (Auto) 0.6 TH/MM3 Eosinophils # (Auto) 0.0 TH/MM3 Basophils # (Auto) 0.1 TH/MM3 CBC Comment DIFF FINAL Differential Comment Prothrombin Time 10.6 SEC Prothromb Time International Ratio 1.0 RATIO Activated Partial Thromboplast Time 23.9 SEC Blood Urea Nitrogen 33 MG/DL Creatinine 2.56 MG/DL Random Glucose 451 MG/DL Total Protein 8.3 GM/DL Albumin 4.5 GM/DL Calcium Level 10.1 MG/DL Alkaline Phosphatase 85 U/L Aspartate Amino Transf (AST/SGOT) 16 U/L Alanine Aminotransferase (ALT/SGPT) 19 U/L Total Bilirubin 0.6 MG/DL Sodium Level 133 MEQ/L Potassium Level 5.8 MEQ/L Chloride Level 98 MEQ/L Carbon Dioxide Level 17.3 MEQ/L Anion Gap 18 MEQ/L Estimat Glomerular Filtration Rate 33 ML/MIN Blood Gas Puncture Site NURSE Blood Gas Patient Temperature 98.6 Venous Blood pH 7.31 Venous Blood Partial Pressure CO2 34 mmHg Venous Blood Partial Pressure O2 41 mmHg Venous Blood HCO3 16 mmol/L Venous Blood Oxygen Saturation 72 % Venous Blood Oxygen Content 12.3 Vol % Venous Blood Base Excess -8.7 mmol/L Blood Gas Inspired Oxygen 21 % Urine Color LIGHT-YELLOW Urine Turbidity CLEAR Urine pH 5.5 Urine Specific [place] 1.025 Urine Protein NEG mg/dL Urine Glucose (UA) 1000 mg/dL Urine Ketones 80 mg/dL Urine Occult Blood NEG Urine Nitrite NEG Urine Bilirubin NEG Urine Urobilinogen LESS THAN 2.0 MG/DL Urine Leukocyte Esterase NEG Urine RBC LESS THAN 1 /hpf Urine WBC LESS THAN 1 /hpf Urine Mucus FEW /lpf Microscopic Urinalysis Comment CULT NOT INDICATED MDM Supervised Visit with JORGE ALBERTO: Yes Narrative Course I, Dr. Rondon, have reviewed the advance practice practitioner's documentation and am in agreement, met with the patient face to face, made the diagnosis, and the medical decision making was done by me. *My assessment and Findings: This is a 46-year-old male presents to the emergency department for evaluation of nausea and vomiting for the past year. Patient states been intermittent symptoms, he states his sugar typically runs around 200 but his last A1c in August 2016 was 10. He is status post renal transplant, has been taking his CellCept up until 3 days ago when he started vomiting it up, no fevers no decreased urine output. He states initially the vomiting started is clear "bile" but then became bloody. The patient has been given 2 L normal saline, we are waiting for a VBG, noncontrast CT of his abdomen has been ordered as well. Zofran has been given the patient will need reassessment. May ultimately require admission for intractable nausea and vomiting but this will be discussed with Dr. Osborne at the end of my shift at 1700 we discussed the patient's chemistry now resulted which does show some evidence for mild DKA, cr somewhat elevated from previous. I have ordered insulin drip and DKA protocol. Jodi LAI calling business solutions consultant and for admission. Kip Rondon MD Sep 26, 2017 16:19
[2017-09-26 16:33] LABS: BLOOD UREA NITROGEN 33 MG/DL (7-18); CREATININE 2.56 MG/DL (0.60-1.30); GLOMERULAR FILTRATION RATE 33 ML/MIN (>89)
[2017-09-26 16:34] LABS: ALBUMIN 4.5 GM/DL (3.4-5.0); ALKALINE PHOSPHATASE 85 U/L (45-117); ALT (GPT) 19 U/L (12-78); AST (GOT) 16 U/L (15-37); BICARBONATE 17.3 MEQ/L (21.0-32.0); CALCIUM 10.1 MG/DL (8.5-10.1); CHLORIDE 98 MEQ/L (98-107); SODIUM (NA) 133 MEQ/L (136-145); TOTAL BILIRUBIN ADULT 0.6 MG/DL (0.2-1.0); TOTAL PROTEIN 8.3 GM/DL (6.4-8.2)
[2017-09-26 16:37] LABS: GLUCOSE,RANDOM 451 MG/DL (74-106)
[2017-09-26] MEDS ORDERED: TACR1 PO (16:49)
[2017-09-26] MEDS ORDERED: GLYC1TAB17 PO (16:49)
[2017-09-26] MEDS ORDERED: AZIT250T3 PO (16:49)
[2017-09-26] MEDS: SODIUM CHLOR 0.9% 1000 ML INJ 1,000 ML IV SCH ×4 (16:56→20:56)
[2017-09-26] MEDS ORDERED: SODIUM BICARBONATE 8.4% SOLN 50 MEQ/50 ML VIAL IV PUSH PRN ×4 (17:00→20:45)
[2017-09-26] MEDS ORDERED: POTASSIUM CHLOR 20 MEQ PREMIX 100 ML IV PRN ×10 (17:00→20:45)
[2017-09-26] MEDS ORDERED: INSULIN REGULAR (IV INFUSION) 100 UNITS in SODIUM CHLORIDE 0.9% INJ 99 ML IV PRN ×2 (17:00→20:45)
[2017-09-26] MEDS ORDERED: SODIUM PHOSPHATE INJ 15 MMOL in SODIUM CHLORIDE 0.9% INJ 100 ML IV PRN ×2 (17:00→20:45)
[2017-09-26 17:29] LABS: BILIRUBIN, URINE NEG (NEG); BLOOD, URINE NEG (NEG); GLUCOSE,URINE 1000 mg/dL (NEG); KETONE, URINE 80 mg/dL (NEG); MUCUS URINE FEW /lpf (OCC); NITRITE,URINE NEG (NEG); PH, URINE 5.5 (5.0-8.5); URINE COLOR LIGHT-YELLOW (YELLW/STRAW); URINE LEUKOCYTE ESTERASE NEG (NEG)
[2017-09-26] MEDS ORDERED: DEXT 5%-NACL 0.9% 1000 ML INJ 1,000 ML IV SCH ×2 (18:00→20:35)
--- NOTE | 2017-09-26 18:11 | RADRPT ---
EXAM DATE/TIME: 09/26/2017 17:56 [facility] COMPARISON: No previous studies available for comparison. INDICATIONS : Abdomen pain. ORAL CONTRAST: No oral contrast ingested. RADIATION DOSE: 13.49 CTDIvol (mGy) MEDICAL HISTORY : Stroke. Hypertension. Cardiovascular diseaseLeukemia. SURGICAL HISTORY : Esophagus, kidney transplant. ENCOUNTER: Initial ACUITY: 1 day PAIN SCALE: 5/10 LOCATION: Bilateral abdomen TECHNIQUE: Volumetric scanning of the abdomen and pelvis was performed. Using automated exposure control and ad justment of the mA and/or kV according to patient size, radiation dose was kept as low as reasonably achievable to obtain optimal diagnostic quality images. DICOM format image data is available electro nically for review and comparison. FINDINGS: LOWER LUNGS: The visualized lower lungs are clear. LIVER: Homogeneous density without lesion. There is no dilation of the biliary tree. No calcified gallston es. SPLEEN: Normal size without lesion. PANCREAS: Within normal limits. KIDNEYS: Mildly atrophic with small cysts bilaterally. Tiny nonobstructing calculi. No evidence of hydronephro sis. Left pelvic transplant kidney which appears unremarkable ADRENAL GLANDS: Within normal limits. VASCULAR: There is no aortic aneurysm. BOWEL/MESENTERY: The stomach, small bowel, and colon demonstrate no acute abnormality. There is no free intraperitone al air or fluid. ABDOMINAL WALL: Within normal limits. RETROPERITONEUM: There is no lymphadenopathy. BLADDER: No wall thickening or mass. REPRODUCTIVE: Penile implant with reservoir in the anterior right pelvis. INGUINAL: There is no lymphadenopathy or hernia. MUSCULOSKELETAL: Within normal limits for patient age. CONCLUSION: No definite acute noncontrast CT findings in the abdomen or pelvis. Hernando Pillai MD on September 26, 2017 at 18:06 Board Certified Radiologist. This report was verified electronically.
[2017-09-26 18:51] VITALS: BP 147/66; PULSE 98; RESP 22; TEMP 99.7; O2SAT 100
[2017-09-26 19:00] VITALS: BP 141/68; PULSE 95; RESP 18; O2SAT 100
--- NOTE | 2017-09-26 19:58 | PD ---
Data Data Last Documented VS Vital Signs Date Time Temp Pulse Resp B/P (MAP) Pulse Ox O2 Delivery O2 Flow Rate FiO2 09/26/17 18:51 99.7 98 22 147/66 (93) 100 Room Air Orders Orders Complete Blood Count With Diff (09/26/17 14:21) Comprehensive Metabolic Panel (09/26/17 14:21) Coag Profile (09/26/17 14:21) Iv Access Insert/Monitor (09/26/17 15:36) Pantoprazole Inj (Protonix Inj) (09/26/17 15:45) Sodium Chlor 0.9% 1000 Ml Inj (Ns 1000 M (09/26/17 15:36) Sodium Chloride 0.9% Flush (Ns Flush) (09/26/17 15:45) Sodium Chlor 0.9% 1000 Ml Inj (Ns 1000 M (09/26/17 15:45) Blood Gas Venous (Vbg) (09/26/17 15:41) Ondansetron Inj (Zofran Inj) (09/26/17 16:15) Urinalysis - C+S If Indicated (09/26/17 16:12) Ct Abd/Pel W/O Iv Contrast (09/26/17 16:15) Sodium Chlor 0.9% 1000 Ml Inj (Ns 1000 M (09/26/17 16:56) Sodium Chlor 0.9% 1000 Ml Inj (Ns 1000 M (09/26/17 16:56) Dext 5%-Nacl 0.9% 1000 Ml Inj (D5w-Ns 10 (09/26/17 18:00) Insulin Regular (Iv Infusion) (Novolin R (09/26/17 17:00) Potassium Chlor 20 Meq Premix (Kcl 20 Me (09/26/17 17:00) Potassium Chlor 20 Meq Premix (Kcl 20 Me (09/26/17 17:00) Potassium Chlor 20 Meq Premix (Kcl 20 Me (09/26/17 17:00) Potassium Chlor 20 Meq Premix (Kcl 20 Me (09/26/17 17:00) Sodium Bicarbonate 8.4% Inj (Sodium Bica (09/26/17 17:00) Sodium Bicarbonate 8.4% Inj (Sodium Bica (09/26/17 17:00) Sodium Phosphate Inj (Sodium Phosphate I (09/26/17 17:00) Basic Metabolic Panel (Bmp) (09/26/17 21:56) Basic Metabolic Panel (Bmp) (09/27/17 03:56) Basic Metabolic Panel (Bmp) (09/27/17 09:56) Basic Metabolic Panel (Bmp) (09/27/17 15:56) Magnesium (Mg) (09/26/17 21:56) Magnesium (Mg) (09/27/17 03:56) Magnesium (Mg) (09/27/17 09:56) Magnesium (Mg) (09/27/17 15:56) Phosphorus (Po4) (09/26/17 21:56) Phosphorus (Po4) (09/27/17 03:56) Phosphorus (Po4) (09/27/17 09:56) Phosphorus (Po4) (09/27/17 15:56) Beta Hydroxybutyrate (Acetone) (09/27/17 03:56) Beta Hydroxybutyrate (Acetone) (09/27/17 15:56) Beta Hydroxybutyrate (Acetone) (09/26/17 17:31) Radiology Film Requests (09/26/17 ) Influenzae A/B Antigen (09/26/17 19:21) Sodium Chlor 0.9% 1000 Ml Inj (Ns 1000 M (09/26/17 19:30) Chest, Single Ap (09/26/17 ) Admit Order (Ed Use Only) (09/26/17 19:54) Labs Laboratory Tests Test 09/26/17 15:35 09/26/17 16:15 09/26/17 17:06 09/26/17 18:17 White Blood Count 10.1 TH/MM3 Red Blood Count 4.80 MIL/MM3 Hemoglobin 13.1 GM/DL Hematocrit 41.2 % Mean Corpuscular Volume 85.8 FL Mean Corpuscular Hemoglobin 27.3 PG Mean Corpuscular Hemoglobin Concent 31.8 % Red Cell Distribution Width 14.2 % Platelet Count 332 TH/MM3 Mean Platelet Volume 8.7 FL Neutrophils (%) (Auto) 85.4 % Lymphocytes (%) (Auto) 8.4 % Monocytes (%) (Auto) 5.5 % Eosinophils (%) (Auto) 0.1 % Basophils (%) (Auto) 0.6 % Neutrophils # (Auto) 8.7 TH/MM3 Lymphocytes # (Auto) 0.9 TH/MM3 Monocytes # (Auto) 0.6 TH/MM3 Eosinophils # (Auto) 0.0 TH/MM3 Basophils # (Auto) 0.1 TH/MM3 CBC Comment DIFF FINAL Differential Comment Prothrombin Time 10.6 SEC Prothromb Time International Ratio 1.0 RATIO Activated Partial Thromboplast Time 23.9 SEC Blood Urea Nitrogen 33 MG/DL Creatinine 2.56 MG/DL Random Glucose 451 MG/DL Total Protein 8.3 GM/DL Albumin 4.5 GM/DL Calcium Level 10.1 MG/DL Alkaline Phosphatase 85 U/L Aspartate Amino Transf (AST/SGOT) 16 U/L Alanine Aminotransferase (ALT/SGPT) 19 U/L Total Bilirubin 0.6 MG/DL Sodium Level 133 MEQ/L Potassium Level 5.8 MEQ/L Chloride Level 98 MEQ/L Carbon Dioxide Level 17.3 MEQ/L Anion Gap 18 MEQ/L Estimat Glomerular Filtration Rate 33 ML/MIN Blood Gas Puncture Site NURSE Blood Gas Patient Temperature 98.6 Venous Blood pH 7.31 Venous Blood Partial Pressure CO2 34 mmHg Venous Blood Partial Pressure O2 41 mmHg Venous Blood HCO3 16 mmol/L Venous Blood Oxygen Saturation 72 % Venous Blood Oxygen Content 12.3 Vol % Venous Blood Base Excess -8.7 mmol/L Blood Gas Inspired Oxygen 21 % Urine Color LIGHT-YELLOW Urine Turbidity CLEAR Urine pH 5.5 Urine Specific [place] 1.025 Urine Protein NEG mg/dL Urine Glucose (UA) 1000 mg/dL Urine Ketones 80 mg/dL Urine Occult Blood NEG Urine Nitrite NEG Urine Bilirubin NEG Urine Urobilinogen LESS THAN 2.0 MG/DL Urine Leukocyte Esterase NEG Urine RBC LESS THAN 1 /hpf Urine WBC LESS THAN 1 /hpf Urine Mucus FEW /lpf Microscopic Urinalysis Comment CULT NOT INDICATED B-Hydroxybutyrate 7.57 MMOL/L MDM Supervised Visit with JORGE ALBERTO: No Narrative Course The patient was initially evaluated by the previous provider and nurse practitioner. See their notes for further detail. Patient was left with me when the nurse practitioner shift ended at 7 PM pending disposition. Briefly this is a 46-year-old male with history of diabetes, hypertension, renal transplant 2 years ago followed by body trimmer upholsterer Dr. Valenzuela, here for evaluation of generalized malaise, nausea, and vomiting. Symptoms have been going on for 3 days. Lab work is consistent with DKA. Patient's creatinine today is 2.56 which is slightly worse than his baseline of around 1.9. The patient has been unable to keep his mycophenolate her tacrolimus town for the last 2-3 days because of nausea and vomiting. My nurse practitioner contacted our body trimmer upholsterer condenser tube tender Dr. Triana who recommended that the patient be transferred to [facility] where the patient's body trimmer upholsterer is located. My nurse practitioner then contacted Dr. Valenzuela who recommended [facility]. 7:50 PM: I spoke with [facility] hospitalist Dr. Sheldon who declined to accept transfer of the patient stating that we need to treat his DKA here at our hospital, and that the patient's acute worsening renal function is likely secondary to DKA and should improve with treatment. 7:55 PM: I discussed the case with our on-call tipple mechanic Dr. Trujillo who has accepted admission of the patient to the ICU. Diagnosis Primary Impression: DKA (diabetic ketoacidoses) Qualified Codes: E08.10 - Diabetes mellitus due to underlying condition with ketoacidosis without coma Shailesh Osborne MD Sep 26, 2017 19:58
[2017-09-26 20:00] VITALS: BP 139/70; PULSE 98; RESP 18; O2SAT 100
--- NOTE | 2017-09-26 20:28 | RADRPT ---
EXAM DATE/TIME: 09/26/2017 20:14 [place] COMPARISON: CHEST PA & LAT, September 09, 2017, 12:55. INDICATIONS : Cough. MEDICAL HISTORY : Diabetes mellitus type II. Stroke. Cardiovascular disease. Hypertension. SURGICAL HISTORY : None. ENCOUNTER: Initial ACUITY: 1 day PAIN SCORE: Non-responsive. LOCATION: Bilateral chest FINDINGS: A single view of the chest demonstrates the lungs to be symmetrically aerated without evidence of mas s, infiltrate or effusion. The cardiomediastinal contours are unremarkable. Osseous structures are intact. CONCLUSION: 1. No acute cardiopulmonary findings. Ivan Fuentes MD on September 26, 2017 at 20:26 Board Certified Radiologist. This report was verified electronically.
[2017-09-26] MEDS ORDERED: POTASSIUM CHLOR 40 MEQ PREMIX 100 ML IV PRN ×2 (20:45)
[2017-09-26] MEDS ORDERED: MISCELLANEOUS NURSING INFORMATION XX SCH (20:45)
[2017-09-26] MEDS ORDERED: CHLORHEXIDINE GLUCONATE 2 % 1 PACK (2 CLOTHS) TOP PRN (20:45)
[2017-09-26 21:00] VITALS: BP 147/72; PULSE 102; RESP 16; O2SAT 100
[2017-09-26] MEDS ORDERED: NON-FORMULARY DRUG (Dextromethorphan-Guaifenesin (Mucinex DM) 1 TAB) PO PRN (21:00)
[2017-09-26 21:46] LABS: TROPONIN I 0.03 NG/ML (0.02-0.05)
[2017-09-26 22:04] LABS: BICARBONATE 15.8 MEQ/L (21.0-32.0); CALCIUM 9.1 MG/DL (8.5-10.1); CREATININE 2.48 MG/DL (0.60-1.30); PHOSPHORUS 3.4 MG/DL (2.5-4.9)
--- NOTE | 2017-09-26 22:20 | HHI.HP ---
HPI Service Critical Care Medicine Primary Care Physician Dontrell Schmitz MD Admission Diagnosis DKA Diagnosis: Travel History International Travel<30 Days: No Contact w/Intl Traveler <30 Da: No Traveled to Known Affected Are: No History of Present Illness 46-year-old male with history of diabetes, hypertension, renal transplant 2 years ago followed by immunologist Dr. Valenzuela, presents for an evaluation of generalized malaise, nausea, and vomiting. Symptoms have been going on for 3 days. His lab work performed in the ED is consistent with DKA. Patient's creatinine today is 2.56 which is slightly worse than his baseline of around 1.9. The patient has been unable to keep his mycophenolate her tacrolimus down for the last 2-3 days because of nausea and vomiting. The emergency department nurse practitioner contacted our immunologist office [address] Triana who recommended that the patient be transferred to [facility] where the patient's immunologist is located. Dr. Valenzuela recommended that the patient be transferred to [facility], however the [facility] hospitalist Dr. Sheldon declined to accept transfer of the patient stating that we need to treat his DKA here at our hospital, and that the patient's acute worsening renal function is likely secondary to DKA and should improve with treatment. Has the patient is admitted to ICU with nephrology consultation in place. Review of Systems Constitutional: DENIES: Diaphoretic episodes, Fatigue, Fever, Weight gain, Weight loss, Chills, Dizziness, Change in appetite, Night Sweats Endocrine: DENIES: Heat/cold intolerance, Polydipsia, Polyuria, Polyphagia Eyes: DENIES: Blurred vision, Diplopia, Eye inflammation, Eye pain, Vision loss , Photosensitivity, Double Vision Ears, nose, mouth, throat: DENIES: Tinnitus, Hearing loss, Vertigo, Nasal discharge, Oral lesions, Throat pain, Hoarseness, Ear Pain, Running Nose, Epistaxis, Sinus Pain, Toothache, Odynophagia Respiratory: DENIES: Apneas, Cough, Snoring, Wheezing, Hemoptysis, Sputum production, Shortness of breath Cardiovascular: DENIES: Chest pain, Palpitations, Syncope, Dyspnea on Exertion , PND, Lower Extremity Edema, Orthopnea, Claudication Gastrointestinal: COMPLAINS OF: Abdominal pain, Nausea, Vomiting, DENIES: Black stools, Bloody stools, Constipation, Diarrhea, Difficulty Swallowing, Anorexia Genitourinary: DENIES: Sexual dysfunction, Urinary frequency, Urinary incontinence, Urgency, Hematuria, Dysuria, Nocturia, Penile Discharge, Testicular Pain, Testicular Swelling Musculoskeletal: DENIES: Joint pain, Muscle aches, Stiffness, Joint Swelling, Back pain, Neck pain Integumentary: DENIES: Abnormal pigmentation, Nail changes, Pruritus, Rash Hematologic/lymphatic: DENIES: Bruising, Lymphadenopathy Immunologic/allergic: DENIES: Eczema, Urticaria Neurologic: DENIES: Abnormal gait, Headache, Localized weakness, Paresthesias, Seizures, Speech Problems, Tremor, Poor Balance Psychiatric: DENIES: Anxiety, Confusion, Mood changes, Depression, Hallucinations, Agitation, Suicidal Ideation, Homicidal Ideation, Delusions Past Family Social History Allergies: Coded Allergies: bethanechol (Unverified Allergy, Mild, DIAPHORESIS, 09/26/17) diatrizoate meglumine (Unverified Allergy, Mild, ITCHING AND COUGHING, ) gadobenic acid (Unverified Allergy, Mild, ITCHING AND COUGHING, 09/26/17) gadodiamide (Unverified Allergy, Mild, ITCHING AND COUGHING, 09/26/17) gadoteridol (Unverified Allergy, Mild, ITCHING AND COUGHING, 09/26/17) iodixanol (Unverified Allergy, Mild, ITCHING AND COUGHING, 09/26/17) iohexol (Unverified Allergy, Mild, ITCHING AND COUGHING, 09/26/17) Past Medical History Diabetes mellitus with gastroparesis, neuropathy, retinopathy Chronic kidney disease with history of renal transplant TIA/CVA, residual left upper extremity weakness History of DVT in the past History of CHF in the past History of cardiac arrhythmia status post cardioversion Peptic ulcer disease/GERD Hyperlipidemia Hypertension CML Depression Past Surgical History Renal transplant Multiple toe amputations Cardioversion EGD/colonoscopy Left upper extremity AV fistula placement Penile implant Bone marrow biopsy Left knee surgery Reported Medications Reported Meds & Active Scripts Active Reported Glycopyrrolate 1 Mg Tab 1 Mg PO DAILY Azithromycin 250 Mg Tab 250 Mg PO DAILY Prograf (Tacrolimus) 1 Mg Cap 4 Mg PO DAILY IN THE AM Mucinex DM (Dextromethorphan-Guaifenesin) 30-600 Mg Tab 1 Tab PO BID PRN Multiple Vitamin 1 Tab 1 Tab PO DAILY Zoloft (Sertraline HCl) 100 Mg Tab 100 Mg PO DAILY Flonase Nasal [place] (Fluticasone Nasal [place]) 50 Mcg/Act [place] 50 Mcg EACH NARE BID Zetia (Ezetimibe) 10 Mg Tab 10 Mg PO HS Mycophenolate (Mycophenolate Mofetil) 500 Mg Tab 1,000 Mg PO BID Pravastatin 40 Mg Tab 40 Mg PO HS Aspirin 81 Mg Chew 81 Mg PO DAILY D-2000 Maximum Strength (Cholecalciferol) 2,000 Unit Tab 2,000 Units PO DAILY Coreg (Carvedilol) 12.5 Mg Tab 12.5 Mg PO BID Calcitriol 0.25 Mcg Cap 0.25 Mcg PO DAILY Amlodipine (Amlodipine Besylate) 5 Mg Tab 5 Mg PO DAILY IN THE PM Novolog Inj (Insulin Aspart) 1,000 Unit/10 Ml Vial Unknown Dose IMPLANPUMP DIRECTED Gleevec (Imatinib Mesylate) 100 Mg Tab 100 Mg PO HS Prograf (Tacrolimus) 1 Mg Cap 3 Mg PO DAILY IN THE PM Zantac (Ranitidine HCl) 300 Mg Tab 300 Mg PO BID Carafate (Sucralfate) 1 Gm Tab 1 Gm PO BID On empty stomach Active Ordered Medications Current Medications Medications (Trade) Dose Ordered Sig/[place] Route PRN Reason Start Time Stop Time Status Last Admin Dose Admin Sodium Chloride (NS Flush) 2 ml UNSCH PRN IV FLUSH FLUSH AFTER USING IV ACCESS 09/26/17 15:45 Sodium Chloride 1,000 ml @ 250 mls/hr Q4H IV 09/26/17 20:35 Dextrose/Sodium Chloride 1,000 ml @ 200 mls/hr Q5H IV 09/26/17 20:35 09/26/17 23:07 Insulin Human Regular 100 units/ Sodium Chloride 100 ml @ 8.86 mls/hr TITRATE PRN IV Blood Glucose Control 09/26/17 20:45 Potassium Chloride 100 ml @ 100 mls/hr Q1H PRN IV SEE LABEL COMMENTS 09/26/17 20:45 Potassium Chloride 100 ml @ 50 mls/hr Q2H PRN IV SEE LABEL COMMENTS 09/26/17 20:45 Potassium Chloride 100 ml @ 100 mls/hr Q1H PRN IV SEE LABEL COMMENTS 09/26/17 20:45 Potassium Chloride 100 ml @ 100 mls/hr Q1H PRN IV SEE LABEL COMMENTS 09/26/17 20:45 Potassium Chloride 100 ml @ 50 mls/hr Q2H PRN IV SEE LABEL COMMENTS 09/26/17 20:45 Potassium Chloride 100 ml @ 50 mls/hr Q2H PRN IV SEE LABEL COMMENTS 09/26/17 20:45 Potassium Chloride 100 ml @ 50 mls/hr Q2H PRN IV SEE LABEL COMMENTS 09/26/17 20:45 Potassium Chloride 100 ml @ 50 mls/hr Q2H PRN IV SEE LABEL COMMENTS 09/26/17 20:45 Sodium Bicarbonate (Sodium Bicarbonate 8.4% Inj) 100 meq UNSCH PRN IV PUSH SEE LABEL COMMENTS 09/26/17 20:45 Sodium Bicarbonate (Sodium Bicarbonate 8.4% Inj) 50 meq UNSCH PRN IV PUSH SEE LABEL COMMENTS 09/26/17 20:45 Sodium Phosphate 15 mmol/Sodium Chloride 105 ml @ 25 mls/hr UNSCH PRN IV SEE LABEL COMMENTS 09/26/17 20:45 Miscellaneous Information 1 [id number] XX 09/26/17 20:45 Chlorhexidine Gluconate (Chlorhexidine 2% Cloth) 3 pack Taper DAILY@04 TOP 09/27/17 04:00 09/23/18 03:59 Chlorhexidine Gluconate (Chlorhexidine 2% Cloth) 3 pack UNSCH PRN TOP HYGIENIC CARE 09/26/17 20:45 Amlodipine Besylate (Norvasc) 5 mg BID PO 09/26/17 21:00 09/26/17 22:35 Aspirin (Aspirin Chew) 81 mg DAILY PO 09/27/17 09:00 Azithromycin (Zithromax) 250 mg DAILY PO 09/27/17 09:00 Calcitriol (Rocaltrol) 0.25 mcg DAILY PO 09/27/17 09:00 Carvedilol (Coreg) 12.5 mg BID PO 09/26/17 21:00 09/26/17 22:35 Cholecalciferol (Vitamin D3) 2,000 units DAILY PO 09/27/17 09:00 EZETIMIBE (Zetia) 10 mg HS PO 09/26/17 21:00 09/26/17 22:55 Glycopyrrolate (Robinul) 1 mg DAILY PO 09/27/17 09:00 Mycophenolate Mofetil (Cellcept) 1,000 mg BID PO 09/26/17 21:00 2/21/18 22:35 Pravastatin Sodium (Pravachol) 40 mg HS PO 09/26/17 21:00 09/26/17 22:36 Sertraline HCl (Zoloft) 100 mg DAILY PO 09/27/17 09:00 Sucralfate (Carafate) 1 gm BID PO 09/26/17 21:00 09/26/17 22:35 Tacrolimus (Prograf) 3 mg DAILY PO 09/27/17 09:00 Tacrolimus (Prograf) 4 mg HS PO 09/26/17 21:00 09/26/17 22:55 Fluticasone Propionate (Flonase Deuce Spr) 1 spray BID NASAL 09/26/17 22:15 09/26/17 22:56 Imatinib Mesylate (Gleevec) 100 mg HS PO 09/26/17 22:30 09/26/17 22:56 Multivitamins (Theragran) 1 tab DAILY PO 09/27/17 09:00 Famotidine (Pepcid) 10 mg BID PO 09/26/17 22:15 09/26/17 22:36 Family History Father had CVA, hypertension, diabetes excellent Mother had hypertension Social History History tobacco use, quit prior to renal transplant Denies any alcohol use Occasional medical marijuana use Physical Exam Vital Signs Vital Signs Date Time Temp Pulse Resp B/P (MAP) Pulse Ox O2 Delivery O2 Flow Rate FiO2 09/26/17 21:00 102 16 147/72 (97) 100 Room Air 09/26/17 20:00 98 18 139/70 (93) 100 Room Air 09/26/17 19:00 95 18 141/68 (92) 100 Room Air 09/26/17 18:51 99.7 98 22 147/66 (93) 100 Room Air 09/26/17 15:38 96 18 172/81 (111) 100 Room Air 09/26/17 14:13 98.8 105 14 138/79 (98) 100 Room Air Physical Exam GENERAL: Well-nourished, well-developed patient. SKIN: Warm and dry. HEAD: Normocephalic. EYES: No scleral icterus. No injection or drainage. NECK: Supple, trachea midline. No JVD or lymphadenopathy. CARDIOVASCULAR: Regular rate and rhythm without murmurs, gallops, or rubs. RESPIRATORY: Breath sounds equal bilaterally. No accessory muscle use. GASTROINTESTINAL: Abdomen soft, non-tender, nondistended. MUSCULOSKELETAL: No cyanosis, or edema. BACK: Nontender without obvious deformity. NEURO EXAM: GCS: 15 Mental Status: The patient is alert and oriented to person, place, and time with normal speech. Cranial Nerves: Visual acuity intact bilaterally. Visual jarrett normal in all quadrants. Pupils are round, reactive to light. Extraocular movements are intact without ptosis. Hearing is normal bilaterally. Voice is normal. Tongue protrudes midline and moves symmetrically. Reflexes: Biceps, patellar, and Achilles are 2/4 bilaterally. No clonus. Sensation: Sensation is intact bilaterally to pain and light touch. Two-point discrimination is intact. Motor: Good muscle tone. Strength is 5/5 bilaterally. Cerebellar: [id number] and [id number] test normal bilaterally. Laboratory Laboratory Tests Test 09/26/17 15:35 09/26/17 16:15 09/26/17 17:06 09/26/17 18:17 White Blood Count 10.1 Red Blood Count 4.80 Hemoglobin 13.1 Hematocrit 41.2 Mean Corpuscular Volume 85.8 Mean Corpuscular Hemoglobin 27.3 Mean Corpuscular Hemoglobin Concent 31.8 Red Cell Distribution Width 14.2 Platelet Count 332 Mean Platelet Volume 8.7 Neutrophils (%) (Auto) 85.4 Lymphocytes (%) (Auto) 8.4 Monocytes (%) (Auto) 5.5 Eosinophils (%) (Auto) 0.1 Basophils (%) (Auto) 0.6 Neutrophils # (Auto) 8.7 Lymphocytes # (Auto) 0.9 Monocytes # (Auto) 0.6 Eosinophils # (Auto) 0.0 Basophils # (Auto) 0.1 CBC Comment DIFF FINAL Differential Comment Prothrombin Time 10.6 Prothromb Time International Ratio 1.0 Activated Partial Thromboplast Time 23.9 Blood Urea Nitrogen 33 Creatinine 2.56 Random Glucose 451 Total Protein 8.3 Albumin 4.5 Calcium Level 10.1 Alkaline Phosphatase 85 Aspartate Amino Transf (AST/SGOT) 16 Alanine Aminotransferase (ALT/SGPT) 19 Total Bilirubin 0.6 Sodium Level 133 Potassium Level 5.8 Chloride Level 98 Carbon Dioxide Level 17.3 Anion Gap 18 Estimat Glomerular Filtration Rate 33 Blood Gas Puncture Site NURSE Blood Gas Patient Temperature 98.6 Venous Blood pH 7.31 Venous Blood Partial Pressure CO2 34 Venous Blood Partial Pressure O2 41 Venous Blood HCO3 16 Venous Blood Oxygen Saturation 72 Venous Blood Oxygen Content 12.3 Venous Blood Base Excess -8.7 Blood Gas Inspired Oxygen 21 Urine Color LIGHT-YELLOW Urine Turbidity CLEAR Urine pH 5.5 Urine Specific [place] 1.025 Urine Protein NEG Urine Glucose (UA) 1000 Urine Ketones 80 Urine Occult Blood NEG Urine Nitrite NEG Urine Bilirubin NEG Urine Urobilinogen LESS THAN 2.0 Urine Leukocyte Esterase NEG Urine RBC LESS THAN 1 Urine WBC LESS THAN 1 Urine Mucus FEW Microscopic Urinalysis Comment CULT NOT INDICATED B-Hydroxybutyrate 7.57 Test 09/26/17 21:10 Blood Urea Nitrogen 34 Creatinine 2.48 Random Glucose 370 Calcium Level 9.1 Phosphorus Level 3.4 Magnesium Level 2.0 Sodium Level 137 Potassium Level 5.3 Chloride Level 105 Carbon Dioxide Level 15.8 Anion Gap 16 Estimat Glomerular Filtration Rate 34 Troponin I 0.03 Date/Time Source Procedure Growth Status 09/26/17 21:10 Blood Peripheral Aerobic Blood Culture Pending Received 09/26/17 21:10 Blood Peripheral Anaerobic Blood Culture Pending Received 09/26/17 19:30 Nasal Washing Influenza Types A,B Antigen (MICHELA) - Final NEGATIVE FOR FLU A AND B ANTIGEN.... Complete Result Diagram: 09/26/17 1535 09/26/17 2110 Imaging Last 24 hours Impressions Abdomen/Pelvis CT 09/26/17 1615 Signed Impressions: Service Date/Time: Tuesday, September 26, 2017 17:56 - CONCLUSION: No definite acute noncontrast CT findings in the abdomen or pelvis. Hernando Pillai MD Chest X-Ray 09/26/17 0000 Signed Impressions: Service Date/Time: Tuesday, September 26, 2017 20:14 - CONCLUSION: 1. No acute cardiopulmonary findings. Ivan Fuentes MD Septic Shock Reassessment Septic shock perfusion: reassessment completed Caprini VTE Risk Assessment Caprini VTE Risk Assessment: Mod/High Risk (score >= 2) Caprini Risk Assessment Model Point Value = 1 Point Value = 2 Point Value = 3 Point Value = 5 Age 41-60 Minor surgery BMI > 25 kg/m2 Swollen legs Varicose veins or History of unexplained or recurrent spontaneous Oral contraceptives or hormone replacement Sepsis (< 1 month) Serious lung disease, including pneumonia (< 1 month) Abnormal pulmonary function Acute myocardial infarction Congestive heart failure (< 1 month) History of inflammatory bowel disease Medical patient at bed rest Age 61-74 Arthroscopic surgery Major open surgery (> 45 min) Laparoscopic surgery (> 45 min) Malignancy Confined to bed (> 72 hours) Immobilizing plaster cast Central venous access Age >= 75 History of VTE Family history of VTE Factor V Leiden Prothrombin [id number] Lupus anticoagulant Anticardiolipin antibodies Elevated serum homocysteine Heparin-induced thrombocytopenia Other congenital or acquired thrombophilia Stroke (< 1 month) Elective arthroplasty Hip, pelvis, or leg fracture Acute spinal cord injury (< 1 month) Prophylaxis Regimen Total Risk Factor Score Risk Level Prophylaxis Regimen 0-1 Low Early ambulation 2 Moderate Order ONE of the following: *Sequential Compression Device (SCD) *Heparin 5000 units SQ BID 3-4 Higher Order ONE of the following medications: *Heparin 5000 units SQ TID *Enoxaparin/Lovenox 40 mg SQ daily (WT < 150 kg, CrCl > 30 mL/min) *Enoxaparin/Lovenox 30 mg SQ daily (WT < 150 kg, CrCl > 10-29 mL/min) *Enoxaparin/Lovenox 30 mg SQ BID (WT < 150 kg, CrCl > 30 mL/min) AND/OR *Sequential Compression Device (SCD) 5 or more Highest Order ONE of the following medications: *Heparin 5000 units SQ TID (Preferred with Epidurals) *Enoxaparin/Lovenox 40 mg SQ daily (WT < 150 kg, CrCl > 30 mL/min) *Enoxaparin/Lovenox 30 mg SQ daily (WT < 150 kg, CrCl > 10-29 mL/min) *Enoxaparin/Lovenox 30 mg SQ BID (WT < 150 kg, CrCl > 30 mL/min) AND *Sequential Compression Device (SCD) Assessment and Plan Assessment and Plan DKA - Admit to ICU - Insulin per DKA protocol - Frequent electrolytes and replacement - Nothing by mouth - Transition to subcutaneous insulin when indicated Renal failure - Acute and chronic - Status post renal transplantation - IV fluid hydration - Strict I's and O's - Monitor electrolytes and creatinine - Nephrology consultation - Continue CellCept and tacrolimus Gastroparesis - Azithromycin per home regimen Dyslipidemia - Zetia Depressions - Zoloft Hypertension - Norvasc - Coreg DVT GI prophylaxis - Teds SCDs - Subcutaneous heparin - Pepcid Critical Care: The total critical care time was 35 minutes. Time to perform other separately billable procedures was not included in the critical care time. Gordon Trujillo MD Sep 26, 2017 10:19 pm
[2017-09-26] MEDS: MYCOPHENOLATE MOFETIL 500 MG TAB PO SCH (22:35)
[2017-09-26] MEDS: amLODIPine BESYLATE 5 MG TAB PO SCH (22:35)
[2017-09-26] MEDS: CARVEDILOL 12.5 MG TAB PO SCH (22:35)
[2017-09-26] MEDS: SUCRALFATE 1 GM TAB PO SCH (22:35)
[2017-09-26] MEDS: PRAVASTATIN SOD 40 MG TAB PO SCH (22:36)
[2017-09-26] MEDS: FAMOTIDINE 20 MG TAB PO SCH (22:36)
[2017-09-26] MEDS: EZETIMIBE 10 MG TAB PO SCH (22:55)
[2017-09-26] MEDS: TACROLIMUS 1 MG CAP PO SCH (22:55)
[2017-09-26] MEDS: FLUTICASONE PROPIONATE 50 MCG/ACT 16 GM NASAL SPRAY NASAL SCH (22:56)
[2017-09-26] MEDS: IMATINIB MESYLATE 100 MG TAB PO SCH (22:56)
[2017-09-27] VITALS (13 sets, daily range): BP systolic 118–143; BP diastolic 65–80; PULSE 68–100; RESP 18–23; TEMP 98.4–98.8; O2SAT 95–100
[2017-09-27 00:07] LABS: BICARBONATE 21.4 MEQ/L (21.0-32.0); CALCIUM 8.4 MG/DL (8.5-10.1); CREATININE 2.35 MG/DL (0.60-1.30)
[2017-09-27] MEDS ORDERED: GLUCAGON 1 MG/ML VIAL OTHER PRN (01:00)
[2017-09-27] MEDS ORDERED: DC Insulin drip 2 hrs post basal insulin dose ONE (01:00)
[2017-09-27] MEDS ORDERED: DEXTROSE 50% IN WATER 50 ML VIAL(D50) IV PUSH PRN (01:00)
[2017-09-27] MEDS ORDERED: DC previous DKA orders (HMC 1917) ONE (01:00)
[2017-09-27] MEDS ORDERED: INSULIN REGULAR (IV INFUSION) 100 UNITS in SODIUM CHLORIDE 0.9% INJ 99 ML IV PRN ×4 (01:15)
[2017-09-27] MEDS: CHLORHEXIDINE GLUCONATE 2 % 1 PACK (2 CLOTHS) TOP SCH (03:11)
[2017-09-27 05:38] LABS: BICARBONATE 21.2 MEQ/L (21.0-32.0); CALCIUM 8.8 MG/DL (8.5-10.1); CREATININE 2.12 MG/DL (0.60-1.30)
[2017-09-27 05:45] LABS: PHOSPHORUS 2.2 MG/DL (2.5-4.9); TROPONIN I 0.03 NG/ML (0.02-0.05)
[2017-09-27] MEDS: SERTRALINE HCL 100 MG TAB PO SCH (08:06)
[2017-09-27] MEDS: MULTIVITAMIN TAB PO SCH (08:06)
[2017-09-27] MEDS: CALCITRIOL 0.25 MCG CAP PO SCH (08:06)
[2017-09-27] MEDS: INSULIN DETEMIR 100 UNITS/ML VIAL SQ SCH (08:06)
[2017-09-27] MEDS: amLODIPine BESYLATE 5 MG TAB PO SCH ×2 (08:07→20:09)
[2017-09-27] MEDS: CHOLECALCIFEROL (VIT D3) 1000 UNIT TAB PO SCH (08:07)
[2017-09-27] MEDS: TACROLIMUS 1 MG CAP PO SCH ×2 (08:07→20:09)
[2017-09-27] MEDS: AZITHROMYCIN 250 MG TAB PO SCH (08:07)
[2017-09-27] MEDS: CARVEDILOL 12.5 MG TAB PO SCH ×2 (08:07→20:14)
[2017-09-27] MEDS: MYCOPHENOLATE MOFETIL 500 MG TAB PO SCH ×2 (08:08→20:10)
[2017-09-27] MEDS: FAMOTIDINE 20 MG TAB PO SCH ×2 (08:08→20:09)
[2017-09-27] MEDS: SUCRALFATE 1 GM TAB PO SCH ×2 (08:08→20:10)
[2017-09-27] MEDS: GLYCOPYRROLATE 1 MG TAB PO SCH (08:08)
--- NOTE | 2017-09-27 08:11 | HHI.PR ---
Subjective Remarks in no acute distress. denies pain but had a couple of loose BM's since yesterday. reports some hematemesis yesterday. Objective Vitals Vital Signs Date Time Temp Pulse Resp B/P (MAP) Pulse Ox O2 Delivery O2 Flow Rate FiO2 09/27/17 06:00 95 09/27/17 04:00 96 09/27/17 04:00 98.7 96 18 131/73 (92) 98 09/27/17 02:00 100 09/27/17 00:59 98.7 100 20 142/70 (94) 100 09/27/17 00:15 09/26/17 21:00 102 16 147/72 (97) 100 Room Air 09/26/17 20:00 98 18 139/70 (93) 100 Room Air 09/26/17 19:00 95 18 141/68 (92) 100 Room Air 09/26/17 18:51 99.7 98 22 147/66 (93) 100 Room Air 09/26/17 15:38 96 18 172/81 (111) 100 Room Air 09/26/17 14:13 98.8 105 14 138/79 (98) 100 Room Air I/O 09/26/17 09/26/17 09/26/17 09/27/17 09/27/17 09/27/17 07:00 15:00 23:00 07:00 15:00 23:00 Intake Total 2000 ml 161.9 ml Balance 2000 ml 161.9 ml Intake IV Total 2000 ml 161.9 ml # Voids 1 Result Diagram: 09/26/17 1535 09/27/17 0500 Imaging Last Impressions Abdomen/Pelvis CT 09/26/17 1615 Signed Impressions: Service Date/Time: Tuesday, September 26, 2017 17:56 - CONCLUSION: No definite acute noncontrast CT findings in the abdomen or pelvis. Hernando Pillai MD Chest X-Ray 09/26/17 0000 Signed Impressions: Service Date/Time: Tuesday, September 26, 2017 20:14 - CONCLUSION: 1. No acute cardiopulmonary findings. Ivan Fuentes MD Objective Remarks GENERAL: This is a well-nourished, well-developed patient, in no apparent distress. CARDIOVASCULAR: Regular rate and regular rhythm without murmurs, gallops, or rubs. RESPIRATORY: Clear to auscultation. Breath sounds equal bilaterally. No wheezes , rales, or rhonchi. GASTROINTESTINAL: Abdomen soft, non-tender, nondistended. Normal, active bowel sounds MUSCULOSKELETAL: Extremities without clubbing, cyanosis, or edema. NEURO: Alert & Oriented x4 to person, place, time, situation. Moves all ext x4 Medications and IVs Inpatient Medications Amlodipine Besylate (Norvasc) 5 mg BID PO Last administered on 09/26/17at 22:35 ; Start 09/26/17 at 21:00 Aspirin (Aspirin Chew) 81 mg DAILY PO ; Start 09/27/17 at 09:00 Azithromycin (Zithromax) 250 mg DAILY PO ; Start 09/27/17 at 09:00 Calcitriol (Rocaltrol) 0.25 mcg DAILY PO ; Start 09/27/17 at 09:00 Carvedilol (Coreg) 12.5 mg BID PO Last administered on 09/26/17at 22:35; Start 09/26/17 at 21:00 Chlorhexidine Gluconate (Chlorhexidine 2% Cloth) 3 pack UNSCH PRN TOP HYGIENIC CARE; Start 09/26/17 at 20:45 Cholecalciferol (Vitamin D3) 2,000 units DAILY PO ; Start 09/27/17 at 09:00 Dextrose (D50w (Vial) Inj) 50 ml UNSCH PRN IV PUSH HYPOGLYCEMIA-SEE COMMENTS; Start 09/27/17 at 01:00 Dextrose/Sodium Chloride 1,000 ml @ 200 mls/hr Q5H IV Last administered on at 23:07; Start 09/26/17 at 20:35; Stop 09/27/17 at 01:06; Status DC EZETIMIBE (Zetia) 10 mg HS PO Last administered on 09/26/17at 22:55; Start 09/26 at 21:00 Famotidine (Pepcid) 10 mg BID PO Last administered on 09/26/17at 22:36; Start at 22:15 Fluticasone Propionate (Flonase Deuce Spr) 1 spray BID NASAL Last administered on 09/26/17at 22:56; Start 09/26/17 at 22:15 Glucagon (Glucagon Inj) 1 mg UNSCH PRN OTHER HYPOGLYCEMIA-SEE COMMENTS; Start 09/27/17 at 01:00 Glycopyrrolate (Robinul) 1 mg DAILY PO ; Start 09/27/17 at 09:00 Imatinib Mesylate (Gleevec) 100 mg HS PO Last administered on 09/26/17at 22:56; Start 09/26/17 at 22:30 Insulin Aspart (NovoLOG SUPPLEMENTAL SCALE) 1 ACHS SLIDING SCALE SQ ; Start at 08:00 Insulin Detemir (Levemir Inj) 15 units DAILY SQ ; Start 09/27/17 at 09:00 Insulin Human Regular 100 units/ Sodium Chloride 100 ml @ 8.3 mls/hr TITRATE PRN IV Blood Glucose Control; Start 09/27/17 at 01:15; Stop 09/27/17 at 11:00 Miscellaneous Information 1 ONCE ONCE .XX Last administered on 09/27/17at 01:00 ; Start 09/27/17 at 01:00; Stop 09/27/17 at 01:05; Status DC Multivitamins (Theragran) 1 tab DAILY PO ; Start 09/27/17 at 09:00 Mycophenolate Mofetil (Cellcept) 1,000 mg BID PO Last administered on at 22:35; Start 09/26/17 at 21:00 Ondansetron HCl (Zofran Inj) 8 mg ONCE ONCE IV PUSH Last administered on at 16:16; Start 09/26/17 at 16:15; Stop 09/26/17 at 16:16; Status DC Pantoprazole Sodium (Protonix Inj) 40 mg ONCE ONCE IVP Last administered on at 16:02; Start 09/26/17 at 15:45; Stop 09/26/17 at 15:46; Status DC Potassium Chloride 100 ml @ 50 mls/hr Q2H PRN IV SEE LABEL COMMENTS; Start at 20:45; Stop 09/27/17 at 01:06; Status DC Pravastatin Sodium (Pravachol) 40 mg HS PO Last administered on 09/26/17at 22:36 ; Start 09/26/17 at 21:00 Sertraline HCl (Zoloft) 100 mg DAILY PO ; Start 09/27/17 at 09:00 Sodium Bicarbonate (Sodium Bicarbonate 8.4% Inj) 50 meq UNSCH PRN IV PUSH SEE LABEL COMMENTS; Start 09/26/17 at 20:45; Stop 09/27/17 at 01:06; Status DC Sodium Chloride 1,000 ml @ 250 mls/hr Q4H IV ; Start 09/26/17 at 20:35; Stop at 01:06; Status DC Sodium Chloride (NS Flush) 2 ml UNSCH PRN IV FLUSH FLUSH AFTER USING IV ACCESS ; Start 09/26/17 at 15:45 Sodium Phosphate 15 mmol/Sodium Chloride 105 ml @ 25 mls/hr UNSCH PRN IV SEE LABEL COMMENTS; Start 09/26/17 at 20:45; Stop 09/27/17 at 01:06; Status DC Sucralfate (Carafate) 1 gm BID PO Last administered on 09/26/17at 22:35; Start 09/26/17 at 21:00 Tacrolimus (Prograf) 4 mg HS PO Last administered on 09/26/17at 22:55; Start at 21:00 A/P Assessment and Plan DKA-resolved -started on levemir with SSI -on insulin pump at home -check A1c. Renal failure - Acute on chronic - Status post renal transplantation - Strict I's and O's - Monitor electrolytes and creatinine - Nephrology consultation - Continue CellCept and tacrolimus Gastroparesis Hematemesis - Azithromycin per home regimen -hold aspirin -continue Pepcid and Carafate -consult GI Dyslipidemia - Zetia Depressions - Zoloft Hypertension - Norvasc - Coreg DVT GI prophylaxis - Teds SCDs - Pepcid transfer to medical floor later this evening if blood sugar remains stable. Taylor Lynch MD Sep 27, 2017 08:11
[2017-09-27] MEDS ORDERED: ASPIRIN 81 MG CHEW TAB PO SCH (09:00)
[2017-09-27 11:18] LABS: HEMATOCRIT 34.6 % (39.0-51.0); HEMOGLOBIN 11.3 GM/DL (13.0-17.0)
[2017-09-27 11:25] LABS: BICARBONATE 22.7 MEQ/L (21.0-32.0); CALCIUM 9.1 MG/DL (8.5-10.1); CREATININE 2.13 MG/DL (0.60-1.30); PHOSPHORUS 2.3 MG/DL (2.5-4.9)
[2017-09-27 11:33] LABS: TROPONIN I 0.03 NG/ML (0.02-0.05)
[2017-09-27] MEDS: INSULIN ASPART SUPPLEMENTAL SCALE SQ SCH ×3 (12:28→21:00)
--- NOTE | 2017-09-27 15:22 | PD.CONS ---
HPI Service Nephrology Consult Requested By Dr. Trujillo Reason for Consult Transplant patient with elevated creatinine Primary Care Physician Dontrell Schmitz MD History of Present Illness Patient is a 46-year-old male with history of diabetes, gastroparesis, hypertension, renal transplant 2 years ago followed by macroeconomics professor Dr. Valenzuela, presents for an evaluation of generalized malaise, nausea, and vomiting. Symptoms have been going on for 3 days but has had nausea for over a month. Admitted with DKA which has been improving. Patient's creatinine today is 2.13 which is down from 2.48 on admission. Per his records his creatinine was 2.02 on 08/13. The patient has been unable to keep his mycophenolate and tacrolimus down for the last 2-3 days because of nausea and vomiting. Has tolerated today. (Grace Powell) Review of Systems Constitutional: COMPLAINS OF: Fatigue Respiratory: DENIES: Sputum production, Shortness of breath Gastrointestinal: COMPLAINS OF: Diarrhea, Nausea, Vomiting Genitourinary: DENIES: Hematuria, Dysuria (Grace Powell) Past Family Social History Allergies: Coded Allergies: bethanechol (Unverified Allergy, Mild, DIAPHORESIS, 09/26/17) diatrizoate meglumine (Unverified Allergy, Mild, ITCHING AND COUGHING, ) gadobenic acid (Unverified Allergy, Mild, ITCHING AND COUGHING, 09/26/17) gadodiamide (Unverified Allergy, Mild, ITCHING AND COUGHING, 09/26/17) gadoteridol (Unverified Allergy, Mild, ITCHING AND COUGHING, 09/26/17) iodixanol (Unverified Allergy, Mild, ITCHING AND COUGHING, 09/26/17) iohexol (Unverified Allergy, Mild, ITCHING AND COUGHING, 09/26/17) Past Medical History Diabetes mellitus with gastroparesis, neuropathy, retinopathy Chronic kidney disease with history of renal transplant TIA/CVA, residual left upper extremity weakness History of DVT in the past History of CHF in the past History of cardiac arrhythmia status post cardioversion Peptic ulcer disease/GERD Hyperlipidemia Hypertension CML Depression Past Surgical History Renal transplant Multiple toe amputations Left upper extremity AV fistula placement Penile implant Bone marrow biopsy Left knee surgery Active Ordered Medications Last Impressions Abdomen/Pelvis CT 09/26/17 1615 Signed Impressions: Service Date/Time: Tuesday, September 26, 2017 17:56 - CONCLUSION: No definite acute noncontrast CT findings in the abdomen or pelvis. Hernando Pillai MD Chest X-Ray 09/26/17 0000 Signed Impressions: Service Date/Time: Tuesday, September 26, 2017 20:14 - CONCLUSION: 1. No acute cardiopulmonary findings. Ivan Fuentes MD Family History Father with CAD/stroke Mother HTN Brothers and sisters with diabetes Social History Denies any smoking Occasional ETOH use Lives with (Grace Powell) Physical Exam Vital Signs Vital Signs Date Time Temp Pulse Resp B/P (MAP) Pulse Ox O2 Delivery O2 Flow Rate FiO2 09/27/17 14:00 91 09/27/17 12:00 91 09/27/17 11:45 98.8 68 18 118/65 (82) 98 09/27/17 10:00 91 09/27/17 08:00 95 09/27/17 06:00 95 09/27/17 04:00 96 09/27/17 04:00 98.7 96 18 131/73 (92) 98 09/27/17 02:00 100 09/27/17 00:59 98.7 100 20 142/70 (94) 100 09/27/17 00:15 09/26/17 21:00 102 16 147/72 (97) 100 Room Air 09/26/17 20:00 98 18 139/70 (93) 100 Room Air 09/26/17 19:00 95 18 141/68 (92) 100 Room Air 09/26/17 18:51 99.7 98 22 147/66 (93) 100 Room Air 09/26/17 15:38 96 18 172/81 (111) 100 Room Air Physical Exam GENERAL: Alert and oriented in no acute distress SKIN: Warm and dry. HEAD: Normocephalic. EYES: No scleral icterus. No injection or drainage. NECK: Supple, trachea midline. No JVD or lymphadenopathy. CARDIOVASCULAR: Regular rate and rhythm without murmurs, gallops, or rubs. RESPIRATORY: Breath sounds equal bilaterally. No accessory muscle use. GASTROINTESTINAL: Abdomen soft, non-tender, nondistended. MUSCULOSKELETAL: No cyanosis, or edema. BACK: Nontender without obvious deformity. Laboratory Laboratory Tests Test 09/26/17 15:35 09/26/17 16:15 09/26/17 17:06 09/26/17 18:17 White Blood Count 10.1 Red Blood Count 4.80 Hemoglobin 13.1 Hematocrit 41.2 Mean Corpuscular Volume 85.8 Mean Corpuscular Hemoglobin 27.3 Mean Corpuscular Hemoglobin Concent 31.8 Red Cell Distribution Width 14.2 Platelet Count 332 Mean Platelet Volume 8.7 Neutrophils (%) (Auto) 85.4 Lymphocytes (%) (Auto) 8.4 Monocytes (%) (Auto) 5.5 Eosinophils (%) (Auto) 0.1 Basophils (%) (Auto) 0.6 Neutrophils # (Auto) 8.7 Lymphocytes # (Auto) 0.9 Monocytes # (Auto) 0.6 Eosinophils # (Auto) 0.0 Basophils # (Auto) 0.1 CBC Comment DIFF FINAL Differential Comment Prothrombin Time 10.6 Prothromb Time International Ratio 1.0 Activated Partial Thromboplast Time 23.9 Blood Urea Nitrogen 33 Creatinine 2.56 Random Glucose 451 Total Protein 8.3 Albumin 4.5 Calcium Level 10.1 Alkaline Phosphatase 85 Aspartate Amino Transf (AST/SGOT) 16 Alanine Aminotransferase (ALT/SGPT) 19 Total Bilirubin 0.6 Sodium Level 133 Potassium Level 5.8 Chloride Level 98 Carbon Dioxide Level 17.3 Anion Gap 18 Estimat Glomerular Filtration Rate 33 Blood Gas Puncture Site NURSE Blood Gas Patient Temperature 98.6 Venous Blood pH 7.31 Venous Blood Partial Pressure CO2 34 Venous Blood Partial Pressure O2 41 Venous Blood HCO3 16 Venous Blood Oxygen Saturation 72 Venous Blood Oxygen Content 12.3 Venous Blood Base Excess -8.7 Blood Gas Inspired Oxygen 21 Urine Color LIGHT-YELLOW Urine Turbidity CLEAR Urine pH 5.5 Urine Specific [place] 1.025 Urine Protein NEG Urine Glucose (UA) 1000 Urine Ketones 80 Urine Occult Blood NEG Urine Nitrite NEG Urine Bilirubin NEG Urine Urobilinogen LESS THAN 2.0 Urine Leukocyte Esterase NEG Urine RBC LESS THAN 1 Urine WBC LESS THAN 1 Urine Mucus FEW Microscopic Urinalysis Comment CULT NOT INDICATED B-Hydroxybutyrate 7.57 Test 09/26/17 21:10 09/26/17 23:30 09/27/17 00:30 09/27/17 05:00 Blood Urea Nitrogen 34 32 30 Creatinine 2.48 2.35 2.12 Random Glucose 370 180 195 Calcium Level 9.1 8.4 8.8 Phosphorus Level 3.4 2.2 Magnesium Level 2.0 2.0 Sodium Level 137 143 140 Potassium Level 5.3 4.3 4.8 Chloride Level 105 111 109 Carbon Dioxide Level 15.8 21.4 21.2 Anion Gap 16 11 10 Estimat Glomerular Filtration Rate 34 37 41 Troponin I 0.03 0.03 Nasal Screen MRSA (PCR) MRSA NOT DETECTED B-Hydroxybutyrate 2.57 Test 09/27/17 10:05 Hemoglobin 11.3 Hematocrit 34.6 Blood Urea Nitrogen 28 Creatinine 2.13 Random Glucose 291 Calcium Level 9.1 Phosphorus Level 2.3 Magnesium Level 2.0 Sodium Level 137 Potassium Level 4.7 Chloride Level 105 Carbon Dioxide Level 22.7 Anion Gap 9 Estimat Glomerular Filtration Rate 41 Troponin I 0.03 Date/Time Source Procedure Growth Status 09/26/17 21:10 Blood Peripheral Aerobic Blood Culture - Preliminary NO GROWTH IN 1 DAY Resulted 09/26/17 21:10 Blood Peripheral Anaerobic Blood Culture - Preliminary NO GROWTH IN 1 DAY Resulted 09/26/17 19:30 Nasal Washing Influenza Types A,B Antigen (MICHELA) - Final NEGATIVE FOR FLU A AND B ANTIGEN.... Complete (Grace Powell) Result Diagram: 09/27/17 1005 09/27/17 1005 Imaging Last Impressions Abdomen/Pelvis CT 09/26/17 1615 Signed Impressions: Service Date/Time: Tuesday, September 26, 2017 17:56 - CONCLUSION: No definite acute noncontrast CT findings in the abdomen or pelvis. Hernando Pillai MD Chest X-Ray 09/26/17 0000 Signed Impressions: Service Date/Time: Tuesday, September 26, 2017 20:14 - CONCLUSION: 1. No acute cardiopulmonary findings. Ivan Fuentes MD (Grace Powell) Assessment and Plan Problem List: (1) MARIO (acute kidney injury) ICD Codes: N17.9 - Acute kidney failure, unspecified Status: Acute Plan: Patient's creatinine today is 2.13 which is down from 2.48 on admission. Per his records his creatinine was 2.02 on 08/13. Has been unable to keep his mycophenolate and tacrolimus down for the last 2-3 days because of nausea and vomiting. Has tolerated today. GI has been consulted Will monitor labs and UOP Potassium wnl Phosphorus low Maintain strict I+O Fluids encouraged Avoid nephrotoxins (2) DKA (diabetic ketoacidoses) ICD Codes: E13.10 - Other specified diabetes mellitus with ketoacidosis without coma Status: Acute (3) Renal transplant, status post ICD Codes: Z94.0 - Kidney transplant status Status: Acute (4) Nausea & vomiting ICD Codes: R11.2 - Nausea with vomiting, unspecified (5) HTN (hypertension), malignant ICD Codes: I10 - HTN (hypertension), malignant Status: Acute (Grace Powell) Problem List: (1) MARIO (acute kidney injury) ICD Codes: N17.9 - Acute kidney failure, unspecified Status: Acute Plan: Patient's creatinine today is 2.13 which is down from 2.48 on admission. Per his records his creatinine was 2.02 on 08/13. Has been unable to keep his mycophenolate and tacrolimus down for the last 2-3 days because of nausea and vomiting. Has tolerated today. GI has been consulted Will monitor labs and UOP Potassium wnl Phosphorus low Maintain strict I+O Fluids encouraged Avoid nephrotoxins. Patient seen and examined, agree with above. Creatinine improving and now 2.0, getting close to his baseline. Follow Prograf level. (2) DKA (diabetic ketoacidoses) ICD Codes: E13.10 - Other specified diabetes mellitus with ketoacidosis without coma Status: Acute (3) Renal transplant, status post ICD Codes: Z94.0 - Kidney transplant status Status: Acute (4) Nausea & vomiting ICD Codes: R11.2 - Nausea with vomiting, unspecified (5) HTN (hypertension), malignant ICD Codes: I10 - HTN (hypertension), malignant Status: Acute (Kiersten Bacon MD) Problem Qualifiers (1) DKA (diabetic ketoacidoses): Qualified Codes: E08.10 - Diabetes mellitus due to underlying condition with ketoacidosis without coma Grace Powell Sep 27, 2017 15:22 Kiersten Bacon MD Sep 27, 2017 21:24
[2017-09-27 17:50] LABS: BICARBONATE 24.3 MEQ/L (21.0-32.0); CALCIUM 9.1 MG/DL (8.5-10.1); CREATININE 2.02 MG/DL (0.60-1.30); MAGNESIUM 1.9 MG/DL (1.5-2.5); PHOSPHORUS 2.2 MG/DL (2.5-4.9)
[2017-09-27] MEDS: EZETIMIBE 10 MG TAB PO SCH (20:09)
[2017-09-27] MEDS: PRAVASTATIN SOD 40 MG TAB PO SCH (20:10)
[2017-09-27] MEDS: IMATINIB MESYLATE 100 MG TAB PO SCH (20:14)
[2017-09-27] MEDS: FLUTICASONE PROPIONATE 50 MCG/ACT 16 GM NASAL SPRAY NASAL SCH (21:06)
[2017-09-28] VITALS (7 sets, daily range): BP systolic 93–150; BP diastolic 63–79; PULSE 90–104; RESP 14–21; TEMP 96.3–98.6; O2SAT 99–100
[2017-09-28 03:46] LABS: BICARBONATE 23.2 MEQ/L (21.0-32.0); CALCIUM 8.9 MG/DL (8.5-10.1); CREATININE 1.88 MG/DL (0.60-1.30); MAGNESIUM 1.8 MG/DL (1.5-2.5); PHOSPHORUS 2.2 MG/DL (2.5-4.9)
[2017-09-28] MEDS: CHLORHEXIDINE GLUCONATE 2 % 1 PACK (2 CLOTHS) TOP SCH (04:00)
[2017-09-28] MEDS: INSULIN DETEMIR 100 UNITS/ML VIAL SQ SCH (07:37)
[2017-09-28] MEDS: SERTRALINE HCL 100 MG TAB PO SCH (07:37)
[2017-09-28] MEDS: INSULIN ASPART SUPPLEMENTAL SCALE SQ SCH ×3 (07:37→17:50)
[2017-09-28] MEDS: CARVEDILOL 12.5 MG TAB PO SCH (07:38)
[2017-09-28] MEDS: FAMOTIDINE 20 MG TAB PO SCH (07:38)
[2017-09-28] MEDS: CHOLECALCIFEROL (VIT D3) 1000 UNIT TAB PO SCH (07:38)
[2017-09-28] MEDS: AZITHROMYCIN 250 MG TAB PO SCH (07:38)
[2017-09-28] MEDS: TACROLIMUS 1 MG CAP PO SCH (07:38)
[2017-09-28] MEDS: MULTIVITAMIN TAB PO SCH (07:39)
[2017-09-28] MEDS: CALCITRIOL 0.25 MCG CAP PO SCH (07:39)
[2017-09-28] MEDS: amLODIPine BESYLATE 5 MG TAB PO SCH (07:39)
[2017-09-28] MEDS: MYCOPHENOLATE MOFETIL 500 MG TAB PO SCH (07:39)
[2017-09-28] MEDS: SUCRALFATE 1 GM TAB PO SCH (07:39)
[2017-09-28] MEDS: GLYCOPYRROLATE 1 MG TAB PO SCH (07:39)
--- NOTE | 2017-09-28 07:47 | HHI.PR ---
Subjective Remarks in no acute distress. overall doing fine. denies pain. no GI bleed. no new complaints. d/w the RN. Objective Vitals Vital Signs Date Time Temp Pulse Resp B/P (MAP) Pulse Ox O2 Delivery O2 Flow Rate FiO2 09/28/17 06:00 94 09/28/17 04:00 98.1 92 14 135/74 (94) 99 09/28/17 04:00 97 09/28/17 02:00 97 09/28/17 00:00 98.0 90 21 150/79 (102) 99 09/28/17 00:00 92 09/27/17 22:00 100 09/27/17 20:00 98.4 97 23 131/72 (91) 100 09/27/17 20:00 93 09/27/17 18:00 91 09/27/17 16:00 98.8 100 18 143/80 (101) 98 09/27/17 16:00 91 09/27/17 14:00 98.8 68 18 118/65 (82) 98 09/27/17 14:00 91 09/27/17 12:00 91 09/27/17 11:45 98.8 68 18 118/65 (82) 98 09/27/17 10:00 91 09/27/17 08:00 98.6 88 18 138/73 (94) 95 09/27/17 08:00 95 I/O 09/27/17 09/27/17 09/27/17 09/28/17 09/28/17 09/28/17 07:00 15:00 23:00 07:00 15:00 23:00 Intake Total 161.9 ml 480 ml 350 ml Output Total 2 ml Balance 161.9 ml 478 ml 350 ml Intake Oral 480 ml 350 ml IV Total 161.9 ml Output Stool Total 2 ml # Voids 1 3 3 # Bowel Movements 0 Result Diagram: 09/27/17 1005 09/28/17 0312 Imaging Last Impressions Abdomen/Pelvis CT 09/26/17 1615 Signed Impressions: Service Date/Time: Tuesday, September 26, 2017 17:56 - CONCLUSION: No definite acute noncontrast CT findings in the abdomen or pelvis. Hernando Pillai MD Chest X-Ray 09/26/17 0000 Signed Impressions: Service Date/Time: Tuesday, September 26, 2017 20:14 - CONCLUSION: 1. No acute cardiopulmonary findings. Ivan Fuentes MD Objective Remarks GENERAL: This is a well-nourished, well-developed patient, in no apparent distress. CARDIOVASCULAR: Regular rate and regular rhythm without murmurs, gallops, or rubs. RESPIRATORY: Clear to auscultation. Breath sounds equal bilaterally. No wheezes , rales, or rhonchi. GASTROINTESTINAL: Abdomen soft, non-tender, nondistended. Normal, active bowel sounds MUSCULOSKELETAL: Extremities without clubbing, cyanosis, or edema. NEURO: Alert & Oriented x4 to person, place, time, situation. Moves all ext x4 Medications and IVs Inpatient Medications Amlodipine Besylate (Norvasc) 5 mg BID PO Last administered on 09/27/17 20:09 ; Start 09/26/17 at 21:00 Aspirin (Aspirin Chew) 81 mg DAILY PO Last administered on 09/27/17 08:07; Start 09/27/17 at 09:00; Status Future Hold Azithromycin (Zithromax) 250 mg DAILY PO Last administered on 09/27/17 08:07; Start 09/27/17 at 09:00 Calcitriol (Rocaltrol) 0.25 mcg DAILY PO Last administered on 09/27/17at 08:06; Start 09/27/17 at 09:00 Carvedilol (Coreg) 12.5 mg BID PO Last administered on 09/27/17at 20:14; Start 09/26/17 at 21:00 Chlorhexidine Gluconate (Chlorhexidine 2% Cloth) 3 pack UNSCH PRN TOP HYGIENIC CARE; Start 09/26/17 at 20:45 Cholecalciferol (Vitamin D3) 2,000 units DAILY PO Last administered on at 08:07; Start 09/27/17 at 09:00 Dextrose (D50w (Vial) Inj) 50 ml UNSCH PRN IV PUSH HYPOGLYCEMIA-SEE COMMENTS; Start 09/27/17 at 01:00 Dextrose/Sodium Chloride 1,000 ml @ 200 mls/hr Q5H IV Last administered on at 23:07; Start 09/26/17 at 20:35; Stop 09/27/17 at 01:06; Status DC EZETIMIBE (Zetia) 10 mg HS PO Last administered on 09/27/17at 20:09; Start 09/26 at 21:00 Famotidine (Pepcid) 10 mg BID PO Last administered on 09/27/17at 20:09; Start at 22:15 Fluticasone Propionate (Flonase Deuce Spr) 1 spray BID NASAL Last administered on 09/27/17at 21:06; Start 09/26/17 at 22:15 Glucagon (Glucagon Inj) 1 mg UNSCH PRN OTHER HYPOGLYCEMIA-SEE COMMENTS; Start 09/27/17 at 01:00 Glycopyrrolate (Robinul) 1 mg DAILY PO Last administered on 09/27/17at 08:08; Start 09/27/17 at 09:00 Imatinib Mesylate (Gleevec) 100 mg HS PO Last administered on 09/27/17at 20:14; Start 09/26/17 at 22:30 Insulin Aspart (NovoLOG SUPPLEMENTAL SCALE) 1 ACHS SLIDING SCALE SQ Last administered on 09/27/17at 21:00; Start 09/27/17 at 08:00 Insulin Detemir (Levemir Inj) 15 units DAILY SQ Last administered on 09/27/17at 08:06; Start 09/27/17 at 09:00 Insulin Human Regular 100 units/ Sodium Chloride 100 ml @ 8.3 mls/hr TITRATE PRN IV Blood Glucose Control; Start 09/27/17 at 01:15; Stop 09/27/17 at 08:12; Status DC Miscellaneous Information 1 ONCE ONCE .XX Last administered on 09/27/17at 01:00 ; Start 09/27/17 at 01:00; Stop 09/27/17 at 01:05; Status DC Multivitamins (Theragran) 1 tab DAILY PO Last administered on 09/27/17at 08:06; Start 09/27/17 at 09:00 Mycophenolate Mofetil (Cellcept) 1,000 mg BID PO Last administered on at 20:10; Start 09/26/17 at 21:00 Ondansetron HCl (Zofran Inj) 8 mg ONCE ONCE IV PUSH Last administered on at 16:16; Start 09/26/17 at 16:15; Stop 09/26/17 at 16:16; Status DC Pantoprazole Sodium (Protonix Inj) 40 mg ONCE ONCE IVP Last administered on at 16:02; Start 09/26/17 at 15:45; Stop 09/26/17 at 15:46; Status DC Potassium Chloride 100 ml @ 50 mls/hr Q2H PRN IV SEE LABEL COMMENTS; Start at 20:45; Stop 09/27/17 at 01:06; Status DC Pravastatin Sodium (Pravachol) 40 mg HS PO Last administered on 09/27/17at 20:10 ; Start 09/26/17 at 21:00 Sertraline HCl (Zoloft) 100 mg DAILY PO Last administered on 09/27/17at 08:06; Start 09/27/17 at 09:00 Sodium Bicarbonate (Sodium Bicarbonate 8.4% Inj) 50 meq UNSCH PRN IV PUSH SEE LABEL COMMENTS; Start 09/26/17 at 20:45; Stop 09/27/17 at 01:06; Status DC Sodium Chloride 1,000 ml @ 250 mls/hr Q4H IV ; Start 09/26/17 at 20:35; Stop at 01:06; Status DC Sodium Chloride (NS Flush) 2 ml UNSCH PRN IV FLUSH FLUSH AFTER USING IV ACCESS ; Start 09/26/17 at 15:45 Sodium Phosphate 15 mmol/Sodium Chloride 105 ml @ 25 mls/hr UNSCH PRN IV SEE LABEL COMMENTS; Start 09/26/17 at 20:45; Stop 09/27/17 at 01:06; Status DC Sucralfate (Carafate) 1 gm BID PO Last administered on 09/27/17at 20:10; Start 09/26/17 at 21:00 Tacrolimus (Prograf) 4 mg HS PO Last administered on 09/27/17at 20:09; Start at 21:00 A/P Assessment and Plan DKA-resolved -started on levemir with SSI -on insulin pump at home -check A1c. Renal failure - Acute on chronic- improved. - Status post renal transplantation - Strict I's and O's - Monitor electrolytes and creatinine - Nephrology consult appreciated. - Continue CellCept and tacrolimus Gastroparesis Hematemesis - Azithromycin per home regimen -hold aspirin -continue Pepcid and Carafate -consulted GI Dyslipidemia - Zetia Depressions - Zoloft Hypertension - Norvasc - Coreg DVT GI prophylaxis - Teds SCDs - Pepcid transfer to medical floor . Discharge Planning dc home when seen and cleared by GI. see med list. f/u; pcp, endocrinology and GI. d/w the patient and RN. Taylor Lynch MD Sep 28, 2017 07:47
[2017-09-28] MEDS ORDERED: NOVOLOGP2 SQ (07:50)
[2017-09-28] MEDS ORDERED: LEVEMIR SQ (07:50)
[2017-09-28] MEDS: FLUTICASONE PROPIONATE 50 MCG/ACT 16 GM NASAL SPRAY NASAL SCH (09:00)
[2017-09-28 10:00] LABS: HEMATOCRIT 37.5 % (39.0-51.0); HEMOGLOBIN 12.4 GM/DL (13.0-17.0)
[2017-09-28 10:19] LABS: CREATININE 1.89 MG/DL (0.60-1.30); MAGNESIUM 1.7 MG/DL (1.5-2.5)
--- NOTE | 2017-09-28 10:46 | HHI.NPPN ---
Subjective History of Present Illness Patient is a 46-year-old male with history of diabetes, gastroparesis, hypertension, renal transplant 2 years ago followed by [facility] investigator Dr. Valenzuela, presents for an evaluation of generalized malaise, nausea, and vomiting. Symptoms have been going on for 3 days but has had nausea for over a month. Admitted with DKA which has been improving. Patient's creatinine today is 2.13 which is down from 2.48 on admission. Per his records his creatinine was 2.02 on 08/13. The patient has been unable to keep his mycophenolate and tacrolimus down for the last 2-3 days because of nausea and vomiting. Has tolerated today. Additional Remarks Patient OOB sitting in chair. No nausea or vomiting today. Tolerating PO (Grace Powell) Review of Systems Respiratory Respiratory Remarks Denies any SOB (Grace Powell) Cardiovascular Cardiac Remarks Denies CP (Grace Powell) Gastrointestinal GI Remarks Denies any abdominal pain (Grace Powell) Genitourinary Remarks Denies dysuria (Grace Powell) Objective Data Data Vital Signs Date Time Temp Pulse Resp B/P (MAP) Pulse Ox O2 Delivery O2 Flow Rate FiO2 09/28/17 10:00 94 09/28/17 08:00 94 09/28/17 08:00 98.6 92 14 135/72 (93) 99 09/28/17 06:00 94 09/28/17 04:00 98.1 92 14 135/74 (94) 99 09/28/17 04:00 97 09/28/17 02:00 97 09/28/17 00:00 98.0 90 21 150/79 (102) 99 09/28/17 00:00 92 09/27/17 22:00 100 09/27/17 20:00 98.4 97 23 131/72 (91) 100 09/27/17 20:00 93 09/27/17 18:00 91 09/27/17 16:00 98.8 100 18 143/80 (101) 98 09/27/17 16:00 91 09/27/17 14:00 98.8 68 18 118/65 (82) 98 09/27/17 14:00 91 09/27/17 12:00 91 09/27/17 11:45 98.8 68 18 118/65 (86) 98 (Grace Powell) -: 09/28/17 0829 09/28/17 0829 Imaging Last Impressions Abdomen/Pelvis CT 09/26/17 1615 Signed Impressions: Service Date/Time: Tuesday, September 26, 2017 17:56 - CONCLUSION: No definite acute noncontrast CT findings in the abdomen or pelvis. Hernando Pillai MD Chest X-Ray 09/26/17 0000 Signed Impressions: Service Date/Time: Tuesday, September 26, 2017 20:14 - CONCLUSION: 1. No acute cardiopulmonary findings. Ivan Fuentes MD (Grace Powell) Physical Exam General Appearance: Well Developed, Well Nourished, No Acute Distress, Comfortable (Grace Powell. [employer]) Eyes Eye Exam: Pupils Equal (Grace PowellP) Throat Throat Exam: Oral Mucosa Pharr & Moist (Grace Powell [employer]) Pulmonary Resp Exam: Clear Bilaterally, Breath Sounds Equal, No Distress (Grace PowellP) Cardiology CV Exam: Regular (Grace PowellP) Gastrointestinal/Abdomen GI Exam: Soft, Non-Tender, Bowel Sounds Present (Grace Powell M. [employer]) Genitourinary Exam: Clear Urine, Flank Non-Tender (Grace Powell MKatie [employer]) Integumentary Skin Exam: Warm, Dry (Grace Powell [employer]) Extremeties Extremities Exam: No Edema (JackylerGrace deleon. [employer]) Neurologic Neuro Exam: Alert, Awake, Oriented (Grace Powell M. [employer]) Psychiatric Psych Exam: Appropriate Responses (Grace Powell) Assessment/Plan Problem List: (1) MARIO (acute kidney injury) ICD Codes: N17.9 - Acute kidney failure, unspecified Status: Acute Plan: Per his records his creatinine was 2.02 on 08/13. Has been unable to keep his mycophenolate and tacrolimus down for the last 2-3 days because of nausea and vomiting. Has tolerated today. GI has been consulted pending Potassium wnl Phosphorus low Creatinine improving at 1.88 today from 2.02 Plan Phosphorus level low diet reviewed Continue strict I+O Fluids encouraged Avoid nephrotoxins. Will monitor labs and UOP Prograf level pending transfer to medical floor (2) DKA (diabetic ketoacidoses) ICD Codes: E13.10 - Other specified diabetes mellitus with ketoacidosis without coma Status: Acute (3) Renal transplant, status post ICD Codes: Z94.0 - Kidney transplant status Status: Acute (4) Nausea & vomiting ICD Codes: R11.2 - Nausea with vomiting, unspecified (5) HTN (hypertension), malignant ICD Codes: I10 - HTN (hypertension), malignant Status: Acute (Grace Powell) Problem List: (1) MARIO (acute kidney injury) ICD Codes: N17.9 - Acute kidney failure, unspecified Status: Acute Plan: Per his records his creatinine was 2.02 on 08/13. Has been unable to keep his mycophenolate and tacrolimus down for the last 2-3 days because of nausea and vomiting. Has tolerated today. GI has been consulted pending Potassium wnl Phosphorus low Creatinine improving at 1.88 today from 2.02 Plan Phosphorus level low diet reviewed Continue strict I+O Fluids encouraged Avoid nephrotoxins. Will monitor labs and UOP Prograf level is 10.9. Creatinine is stable at 1.89. For D/C, to follow with Dr. Valenzuela. (2) DKA (diabetic ketoacidoses) ICD Codes: E13.10 - Other specified diabetes mellitus with ketoacidosis without coma Status: Acute (3) Renal transplant, status post ICD Codes: Z94.0 - Kidney transplant status Status: Acute (4) Nausea & vomiting ICD Codes: R11.2 - Nausea with vomiting, unspecified (5) HTN (hypertension), malignant ICD Codes: I10 - HTN (hypertension), malignant Status: Acute (Kiersten Bacon MD) Problem Qualifiers (1) DKA (diabetic ketoacidoses): Qualified Codes: E08.10 - Diabetes mellitus due to underlying condition with ketoacidosis without coma Grace Powell Sep 28, 2017 10:46 Kiersten Bacon MD Sep 28, 2017 22:59
--- NOTE | 2017-09-28 15:31 | PD.CONS ---
GI Consult GI Consult Thank you for the consultation, ASSESSMENT/PLAN: 1. hematemesis 2. Gastroparesis 3. N/v 4. Anemia PLAN: 1. gastroparesis diet 2. rec carafate 1 gm po QID x one month then twice per day, pt has meds as home (d/w ) 3. outpt follow up with Dr sahni in 1 mo 4. No objection to discharge from GI stand point. It was a pleasure seeing Amado Loo . Thank you for this consult. Entered by: Sylwia Maciel MD Sep 28, 2017 15:31
[2017-09-28] MEDS ORDERED: CARA1TAB6 PO (17:13)
--- NOTE | 2017-09-28 17:30 | MB ---
cc: GRZEGORZ NICOLE DATE OF CONSULTATION 09/28/17 DATE OF 1970 REASON FOR CONSULTATION GI bleed, anemia. HISTORY OF PRESENT ILLNESS This is a very pleasant 46-year-old -[place] gentleman known to Dr. Perez from the office who has longstanding history of diabetes mellitus, hypertension, history of renal transplant two years ago and diabetic gastroparesis who came into the hospital and was in DKA, elevated creatinine as well as having waves of nausea and episodes of emesis. After several bouts of emesis, he complained of having several bouts of a small amount of hematemesis. He was admitted to the intensive care unit, underwent appropriate workup and treatment for his DKA. He was eventually transferred out of the unit and into a general medical floor. He has not had any nausea or vomiting since. Abdominal pain has resolved and no new episodes of hematemesis. His hemoglobin has been stable. Initially it was 13.1 and has reduced down to 12.4. PAST MEDICAL HISTORY 1. Diabetes mellitus, 2. Chronic kidney disease 3. History of TIA 4. History of deep venous thrombosis 5. Congestive heart failure 6. Peptic ulcer disease 7. Gastroparesis PAST SURGICAL HISTORY 1. Renal transplant 2. Multiple toe amputations 3. Cardioversion 4. AV fistula in the left upper extremity [employer]IES [facility]. MEDICATIONS Home medications 1. Glycopyrrolate 2. Azithromycin 3. Prograf 4. Mucinex. 5. Multivitamin. 6. Zoloft. 7. Flonase. 8. Zetia 9. Mycophenolate 10. Atorvastatin 11. Aspirin 12. Coreg 13. Calcitriol. 14. Amlodipine 15. Novolog. 16. 17. Zantac. 18. Carafate. FAMILY HISTORY Malignancies. SOCIAL HISTORY He lives with his . Denies tobacco, alcohol or drug abuse. REVIEW OF SYSTEMS A 12-point review or systems was obtained which was negative or noncontributory except above-mentioned in HPI. PHYSICAL EXAMINATION VITAL SIGNS: 98.6, 94, 135/72, 98% on room air. GENERAL: Alert, oriented in no acute distress. HEENT: Eyes: Pupils equal, round, reactive to light and accommodation. noted. Normocephalic, atraumatic. Oral mucosa moist, pink. No JVD noted. No lymphadenopathy noted. CARDIOVASCULAR: Regular rate and rhythm LUNGS: Clear to auscultation bilaterally. No wheeze. ABDOMEN: Soft, nontender, nondistended. Bowel sounds are present in all four quadrants. Abdominal scars noted. EXTREMITIES: No edema noted. GENITOURINARY: No CVA tenderness noted. MUSCULOSKELETAL: Upper and lower extremities normal. NEUROLOGIC: Alert and oriented, no focal deficits. LABORATORY DATA WBC 10.1, hemoglobin 12.4, platelets 332. IMPRESSION 1. Hematemesis may be secondary to Cecile-Atkins tear, possibility of erosive esophagitis, gastritis spontaneously resolved. 2. Nausea and vomiting with abdominal discomfort may be secondary to gastroparesis and diabetic ketoacidosis 3. Diabetic ketoacidosis, resolved. RECOMMENDATIONS 1. Discussed with the patient in great detail he has had similar issues in the past. Given that the bleeding has spontaneously resolved at this time, I do not believe it is necessary to urgently undergo endoscopy. I recommend increasing his Carafate to four times a day depending on his other medications. I discussed with the patient and his , who is at bedside, the importance of making sure other medications are not mixed with Carafate, given it may reduce the activity of medicines especially his anti-rejection drugs. I have advised him to one hour before food or at least two hours after food or medication. He could do this for one month and then reduce down to once or twice per day. I advised him to follow up in the office with Dr. Perez in about a month and then can consider undergoing upper endoscopy for a better evaluation. The patient is actually ready for discharge, has not had any new issues and would like to go home. At this time I do not have any further workup, therefore, no clear objection from GI standpoint for discharge at this time. Thank you allowing me to participate in the care of the patient. Please call for questions. MD CUATE Mcleod/ /3:40 PM /5:05 PM
== END 2017-09-28 18:34 | disposition home or self-care (01) | DRG 638 ==
LOC: NEPD 14:11 → NEDA 19:54 → HIMN 09-27 00:25 → N06A 09-28 11:17
PROVIDERS: ADMIT Internal Medicine; ATTEND Internal Medicine
DX: E11.10 Type 2 diabetes mellitus with ketoacidosis without coma (principal); Z94.0 Kidney transplant status; N17.9 Acute kidney failure, unspecified; K92.0 Hematemesis; I13.0 Hypertensive heart and chronic kidney disease with heart failure and stage 1 through stage 4 chronic kidney disease, or unspecified chronic kidney disease; I69.354 Hemiplegia and hemiparesis following cerebral infarction affecting left non-dominant side; I50.9 Heart failure, unspecified; K31.84 Gastroparesis; N18.9 Chronic kidney disease, unspecified; E78.00 Pure hypercholesterolemia, unspecified; K21.9 Gastro-esophageal reflux disease without esophagitis; E11.43 Type 2 diabetes mellitus with diabetic autonomic (poly)neuropathy; E11.22 Type 2 diabetes mellitus with diabetic chronic kidney disease; D64.9 Anemia, unspecified; F32.9 Major depressive disorder, single episode, unspecified; E78.5 Hyperlipidemia, unspecified; F12.90 Cannabis use, unspecified, uncomplicated; Z96.41 Presence of insulin pump (external) (internal); Z87.19 Personal history of other diseases of the digestive system; Z79.4 Long term (current) use of insulin; Z85.6 Personal history of leukemia; Z79.82 Long term (current) use of aspirin; Z87.11 Personal history of peptic ulcer disease; Z89.429 Acquired absence of other toe(s), unspecified side; Z86.718 Personal history of other venous thrombosis and embolism; Z87.891 Personal history of nicotine dependence
CPT/HCPCS: 71045; 74176; 80048; 80053; 80197; 81001; 82010; 82805; 82948; 83735; 84100; 84484; 85014; 85018; 85025; 85610; 85730; 87040; 87641; 87804; 96361; 96365; 96375; C9113; J1815; J1817; J2405; J7030; J7042; J7507; J7517